=== PATIENT | female | born 1945 | race Caucasian/White ===

== ENCOUNTER → 2020-01-04 14:17 | Outpatient (BNVA) | payer MEDICARE, SELFPAY | PROVIDERS: Family Provider Family Medicine; PCP Family Medicine; Referring Provider Dermatology; Visit Provider Internal Medicine Rheumatology | DX: L93.1 Subacute cutaneous lupus erythematosus (principal); Z79.899 Other long term (current) drug therapy | CPT/HCPCS: 36415; 80076; 81001; 82306; 82565; 82570; 84156; 85025; 85651; 86140; 86160; 99204 ==

== ENCOUNTER → 2020-01-04 15:10 | Outpatient (BNVA) | payer MEDICARE, SELFPAY | PROVIDERS: Family Provider Family Medicine; PCP Family Medicine; Referring Provider Dermatology; Visit Provider Internal Medicine Rheumatology | DX: L93.1 Subacute cutaneous lupus erythematosus (principal); Z79.899 Other long term (current) drug therapy | CPT/HCPCS: 81001; 85025 ==

== ENCOUNTER → 2020-01-16 09:22 | Outpatient (BNVA) | payer MEDICARE, SELFPAY | PROVIDERS: Family Provider Family Medicine; PCP Family Medicine; Visit Provider Internal Medicine Rheumatology | DX: L93.1 Subacute cutaneous lupus erythematosus (principal); R76.8 Other specified abnormal immunological findings in serum; Z79.899 Other long term (current) drug therapy; R79.89 Other specified abnormal findings of blood chemistry | CPT/HCPCS: 99214 ==

== ENCOUNTER → 2020-01-24 09:03 | Outpatient (BNVA) | payer MEDICARE, SELFPAY | PROVIDERS: Family Provider Family Medicine; PCP Family Medicine; Visit Provider Nurse Practitioner Family | DX: I10 Essential (primary) hypertension (principal); R42 Dizziness and giddiness; I48.91 Unspecified atrial fibrillation; E78.5 Hyperlipidemia, unspecified | CPT/HCPCS: 80053; 80061; 81001; 83036; 84443; 85025 ==

== ENCOUNTER 2020-01-31 10:53 | Outpatient (CLI) | payer MEDICARE, SELFPAY ==
--- NOTE | 2020-01-31 11:00 | CT_ITS ---
WS: [id number] CT HEAD TECHNIQUE: Noncontrast CT of the head obtained from the skullbase to the vertex. CLINICAL INFORMATION: dizziness COMPARISON: None. DLP: 925.[address] scans at [facility] use at least one of these dose optimization techniques: automat ed exposure control; mA and/or kV adjustment per patient size (includes targeted exams where dose is matched to clinical indication); or iterative reconstruction. FINDINGS: No evidence of intracranial hemorrhage or mass effect. Ventricular system and basal cisterns are yang nt. Mild small vessel changes with mild parenchymal volume loss. Chronic appearing encephalomalacia l eft parieto-occipital junction likely due to chronic infarct. Tiny chronic lacunar infarct left thala mus. Mastoid air cells are well aerated. Intracranial vascular calcification. Partially visualized Paranasal sinuses and mastoid air cells are well aerated. .Normal visualized sof t tissues. CT/CT head wo con* [id number] IMPRESSION: 1. No evidence of intracranial hemorrhage or mass effect. 2. Mild small vessel changes with mild parenchymal volume loss. 3. Tiny chronic lacunar infarct left thalamus. 4. Encephalomalacia at the left parietal occipital junction likely due to nurse chad infarct. 5. No acute intracranial findings.
== END 2020-01-31 10:54 | disposition home or self-care (01) ==
LOC: RADWPI 10:58
PROVIDERS: Family Provider Family Medicine; PCP Family Medicine; Visit Provider Nurse Practitioner Family
DX: G93.89 Other specified disorders of brain (principal); I63.81 Other cerebral infarction due to occlusion or stenosis of small artery; R42 Dizziness and giddiness
CPT/HCPCS: 70450

== ENCOUNTER → 2020-02-02 16:57 | Outpatient (BNVA) | payer MEDICARE, SELFPAY | PROVIDERS: Family Provider Family Medicine; PCP Family Medicine; Visit Provider Nurse Practitioner Family | DX: R53.1 Weakness (principal); R42 Dizziness and giddiness; I10 Essential (primary) hypertension | CPT/HCPCS: 80048; 85025 ==

== ENCOUNTER → 2020-07-31 14:38 | Outpatient (BNVA) | payer MEDICARE, SELFPAY | PROVIDERS: Family Provider Family Medicine; PCP Nurse Practitioner Family; Visit Provider Internal Medicine Rheumatology | DX: L93.1 Subacute cutaneous lupus erythematosus (principal); Z79.899 Other long term (current) drug therapy; R76.8 Other specified abnormal immunological findings in serum; R79.89 Other specified abnormal findings of blood chemistry | CPT/HCPCS: 99213 ==

== ENCOUNTER → 2020-08-16 15:30 | Outpatient (BNVA) | payer MEDICARE, SELFPAY | PROVIDERS: Family Provider Family Medicine; PCP Nurse Practitioner Family; Visit Provider Internal Medicine Rheumatology | DX: L93.1 Subacute cutaneous lupus erythematosus (principal); Z79.899 Other long term (current) drug therapy; R76.8 Other specified abnormal immunological findings in serum | CPT/HCPCS: 80048; 80076; 81003; 82565; 82570; 84156; 85025; 85651; 86140; 86160 ==

== ENCOUNTER 2020-11-08 15:12 | Inpatient (IN) | payer MEDICARE, SELFPAY ==
[2020-11-08] VITALS (19 sets, daily range): BP systolic 144–212; BP diastolic 80–136; PULSE 81–134; RESP 18–28; TEMP 36.5–36.7; O2SAT 93–98; BMI 28.1
--- NOTE | 2020-11-08 15:46 | ECG_ITS ---
[facility] Test Date: 2020-11-08 Pat Name: Deepali Mulligan Department: Room: Gender: Female Patient Transport Orderly: omid : 1945 Requested By: Marito Walsh I Order Number: [id number] Cesar MD: Hawk Villagomez M.D. Measurements Intervals [place] Rate: 117 P: WA: QRS: 17 QRSD: 98 T: 134 QT: 262 QTc: 366 Interpretive Statements ATRIAL FIBRILLATION WITH RAPID VENTRICULAR RESPONSE SEPTAL MYOCARDIAL INFARCTION [40+ ms Q WAVE IN V1/V2], OF INDETERMINATE AGE ST DEVIATION AND MODERATE T-WAVE ABNORMALITY, CONSIDER LATERAL ISCHEMIA [-0.1+ mV T WAVE IN I/aVL/V5/V6] INTERPRETATION BASED ON A DEFAULT AGE OF 40 YEARS Compared to ECG 05/05/2019 00:20:57 Sinus rhythm no longer present Myocardial infarct finding still present T-wave abnormality still present Possible ischemia still present Electronically Signed On 11-08-2020 22:43:30 CONCIERGE by Hawk Villagomez M.D. [id number]
--- NOTE | 2020-11-08 15:48 | XR_ITS ---
WS: [id number] XR chest 1V portable [id number] REASON FOR EXAM: chest pain FINDINGS: Status post left mastectomy with axillary dissection. Cardiomegaly. Mild tortuosity of thoracic aorta. Compared to examination of 05/04/2019 the upper mediastinum/upper right hilar region appears widened a t the level of the daron. There is no tracheal deviation. There is a fine reticular pattern throughout both lungs which appears unchanged compared to 05/04/2019 . The bony thorax is intact. XR/XR chest 1V portable [id number] IMPRESSION: Concern for widened right mediastinum/upper right upper hilum. Recommend follow -up upright PA and lateral chest. If the presumed finding is reproduced then th e definitive examination is contrasted CT scan of the chest.
[2020-11-08 16:03] LABS: Basophils % 0.4 %; Eosinophils % 0.5 %; Hematocrit 40.4 % (37.0-47.0); Hemoglobin 12.8 g/dL (11.5-15.3); Lymphocytes # 1.2 10^3/uL (0.8-4.8); Lymphocytes % 15.2 %; Mean Corpuscular HGB Conc 31.7 g/dL (30.0-36.0); Mean Corpuscular Hemoglobin 28.9 pg (28.0-34.0); Mean Corpuscular Volume 91.2 fL (81-99); Mean Platelet Volume 12.2 fL (7.4-10.4); Monocytes # 0.8 10^3/uL (0.2-0.9); Monocytes % 9.9 %; Neutrophils % 73.9 %; Nucleated Red Blood Cells % 0 %; Platelet Count 207 10^3/cmm (130-400); Red Blood Count 4.43 10^6/uL (4.1-5.3); Red Cell Distribution Width 13.2 % (12.1-15.1); White Blood Count 7.7 10^3/uL (4.0-10.0)
[2020-11-08 16:23] LABS: Alanine Aminotransferase 16 U/L (0-33); Alkaline Phosphatase 102 IU/L (35-105); Anion Gap 15.6 (5-19); Aspartate Amino Transferase 17 U/L (0-32); Blood Urea Nitrogen 14 mg/dL (8-23); Calcium 9.3 mg/dL (8.5-10.5); Carbon Dioxide 23 mmol/L (22-29); Chloride 101 mmol/L (98-107); Globulin 3.3 g/dL (1.3-4.6); Glucose 125 mg/dL (65-115); Lipase 19 U/L (13-60); NT Pro B Type Natriuretic Pept 2924 pg/mL (0-450); Osmolality Calculated 284 mOsm/kg (285-295); Potassium 3.6 mmol/L (3.5-5.1); Sodium 136 mmol/L (136-145); Thyroid Stimulating Hormone 2.78 uIU/mL (0.27-4.20); Total Bilirubin 0.7 mg/dL (0.15-1.2); Total Protein 7.3 g/dL (6.6-8.7)
[2020-11-08 16:24] LABS: Troponin(5th) Baseline 14 ng/L (0-10)
--- NOTE | 2020-11-08 16:53 | W.ED.CHESTPA ---
HPI - Chest Pain General: Chief Complaint: Chest Pain Stated Complaint: SOB/CP Time Seen by Provider: 11/08/20 15:21 Source: patient Mode of arrival: ambulatory Limitations: no limitations History of Present Illness: HPI narrative: Patient is a 75-year-old female with a history of atrial fibrillation and she is on verapamil and Xarelto anticoagulation. This morning around 8 AM she noticed intermittent chest pain, however on further questioning she was having palpitations. Because her symptoms persisted she came into the emergency department for evaluation. On arrival her heart rate was significantly elevated and ranged between 120s and 150. She denies any fever, has some shortness of breath, has some dizziness, but no syncopal episodes. MD complaint: chest pain and other (palpitations) Onset (ago): hour(s) Timing of current episode: episodic Prior episodes: Yes Onset: during rest Pain location: left chest Pain radiation: none Severity: mild Quality: aching Relieving factors: nothing Exacerbating factors: nothing Associated symptoms: Deny abdominal pain, diaphoresis, dyspnea, fever(s), leg edema, nausea, palpitations, sense of impending doom, syncope or vomiting Treatment prior to arrival: none Review of Systems General: Reports: 10 or more systems reviewed and unremarkable except in HPI and below Const: Denies: fever(s) or diaphoresis Eyes: Denies: change in vision or blurry vision ENMT: Denies: throat pain, enlarged tonsils, odynophagia, hoarseness, mouth pain or swelling of lips/tongue Card: Denies: palpitations or syncope Resp: Denies: dyspnea GI: Denies: abdominal pain, nausea or vomiting : Denies: flank pain, difficulty voiding, dysuria, urinary frequency, urinary urgency or urinary hesitancy Musc: Denies: neck pain, back pain or extremity swelling Skin/Breast: Denies: rash, pruritus or erythema Neuro: Denies: headache(s), numbness in extremities or weakness in extremities Endo: Denies: polyuria, polydipsia or tired all the time PFS ED PFSH: Medical History (Updated 11/08/20 @ 21:47 by Marito Walsh MD, [facility] [place]) Acid reflux Breast cancer Elevated serum creatinine Elevated serum creatinine High risk medication use Hypertension Other shelter (current) 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 Surgical History H/O: hysterectomy History of inguinal hernia repair History of left mastectomy Family History Other Hyperlipidemia Psychiatric illness Denies family history of Rheumatoid arthritis Lupus Social History Smoking and tobacco status: never smoked Second hand smoke exposure: No Alcohol intake: never Lives independently: Yes Household members: none Current occupational status: employed Current occupation: [employer] History of recent travel: No Current gender identity: Female Physical Exam Const: COMMON NORMALS: no acute distress, average body habitus, patient oriented x3, no limitations, healthy appearing, alert and well nourished HENMT: COMMON NORMALS: normocephalic, atraumatic and moist oral mucous membranes HEAD & SCALP: normocephalic and atraumatic Neck/C-Spine: COMMON NORMALS: no meningeal signs and no JVD Resp: COMMON NORMALS: normal respiratory effort, No retractions, No use of accessory muscles, clear to auscultation bilaterally and percussion normal AUSCULTATION: clear to auscultation bilaterally PERCUSSION: percussion normal Cardio: COMMON NORMALS: no JVD, S1 normal heart sound present, S2 normal heart sound present, No gallops present (Cardio), No clicks present (Cardio), No murmurs present (Cardio), No rub (Cardio) and Peripheral pulses 2+ throughout RATE: tachycardic RHYTHM: abnormal rhythm irregularly irregular HEART SOUNDS: S1 normal heart sound present and S2 normal heart sound present PERIPHERAL PULSES: Peripheral pulses 2+ throughout GI: COMMON NORMALS: Normal to inspection, nondistended, normoactive bowel sounds present, Soft to palpation, non-tender, No hepatosplenomegaly present, no masses and no bruits PALPATION: Yes Soft to palpation and Yes No hepatosplenomegaly present Extremity: COMMON NORMALS: normal to inspection, full ROM, capillary refill normal, no calf tenderness and no pedal edema Neuro: COMMON NORMALS: patient oriented x3 SENSORIUM/ORIENTATION: Yes alert MENINGEAL SIGNS: Yes no meningeal signs Skin: COMMON NORMALS: no rashes or lesions noted, no wounds, turgor normal, no jaundice, no petechiae and no mottling GENERAL SKIN EXAM: no rashes or lesions noted and turgor normal Course Reevaluation(s): Reevaluation #1: Discussed my conversation with Dr. Cortez with her. Also discussed her lab and imaging findings with her prior. Advised that she would benefit from hospital admission and she agreed to be admitted for further evaluation and management. Time: 19:55 Consultations: Consultation #1: Discussed the patient with , hospitalist. He kindly accepted the patient to his service. Time: 19:53 Vital Signs: Vital signs: Vital Signs Temperature 98.1 F 11/08/20 15:14 Pulse Rate 109 H 11/08/20 21:17 Respiratory Rate 20 H 11/08/20 21:17 Blood Pressure 163/102 11/08/20 21:17 Pulse Oximetry 98 11/08/20 21:17 MDM - Chest Pain MDM Narrative: Medical decision making narrative: 75-year-old female patient who presents to the emergency department with chest pain or shortness of breath. On evaluation she was found to be in A. fib with RVR, she was also severely hypertensive. Her atrial fibrillation responded to a single dose of intravenous diltiazem, 20 mg. However it was difficult to get her blood pressure under control. She also had features consistent with heart failure which is a new diagnosis for her. Because of her severely elevated blood pressure, pulmonary edema on CT, and new onset heart failure she was started on a nitroglycerin drip and admitted for further evaluation and management. Medical Records: Attestation: I reviewed the patient's medical records. Lab Data: Attestation: I reviewed the patient's lab results. Labs: Lab Results 11/08/20 11/08/20 11/08/20 Range/Units 15:24 15:24 15:24 WBC 7.7 (4.0-10.0) 10^3/ uL RBC 4.43 (4.1-5.3) 10^6/u L Hgb 12.8 (11.5-15.3) g/dL Hct 40.4 (37.0-47.0) % MCV 91.2 (81-99) fL MCH 28.9 (28.0-34.0) pg MCHC 31.7 (30.0-36.0) g/dL RDW 13.2 (12.1-15.1) % Plt Count 207 (130-400) 10^3/c mm MPV 12.2 H (7.4-10.4) fL Neut % (Auto) 73.9 % Lymph % (Auto) 15.2 % [place] % (Auto) 9.9 % Eos % (Auto) 0.5 % Baso % (Auto) 0.4 % Neut # (Auto) 5.70 (1.8-7.7) 10^3/u L Lymph # (Auto) 1.2 (0.8-4.8) 10^3/u L [place] # (Auto) 0.8 (0.2-0.9) 10^3/u L Eos # (Auto) 0.0 (0.0-0.8) 10^3/u L Baso # (Auto) 0.0 (0.0-0.1) 10^3/u L Nucleated RBC % (a uto) 0 % Nucleated RBCs # 0.0 /100WBC Sodium 136 (136-145) mmol/L Potassium 3.6 (3.5-5.1) mmol/L Chloride 101 (98-107) mmol/L Carbon Dioxide 23 (22-29) mmol/L Anion Gap 15.6 (5-19) BUN 14 (8-23) mg/dL Creatinine 0.9 (0.5-0.9) mg/dL GFR Calculation Not Reportable Glucose 125 H (65-115) mg/dL Calculated Osmolal ity 284 L (285-295) mOsm/k g Calcium 9.3 (8.5-10.5) mg/dL Total Bilirubin 0.7 (0.15-1.2) mg/dL AST 17 (0-32) U/L ALT 16 (0-33) U/L Alkaline Phosphata se 102 (35-105) IU/L Troponin T Baselin e 14 H (0-10) ng/L Troponin T 120 Min [place] (0-10) ng/L Delta Troponin T (0-10) ABS# NT-Pro-B Natriuret Pep 2924 H (0-450) pg/mL Total Protein 7.3 (6.6-8.7) g/dL Albumin 4.0 (3.5-5.2) g/dL Globulin 3.3 (1.3-4.6) g/dL Lipase 19 (13-60) U/L TSH 2.78 (0.27-4.20) uIU/ mL 11/08/20 Range/Units 17:43 WBC (4.0-10.0) 10^3/ uL RBC (4.1-5.3) 10^6/u L Hgb (11.5-15.3) g/dL Hct (37.0-47.0) % MCV (81-99) fL MCH (28.0-34.0) pg MCHC (30.0-36.0) g/dL RDW (12.1-15.1) % Plt Count (130-400) 10^3/c mm MPV (7.4-10.4) fL Neut % (Auto) % Lymph % (Auto) % [place] % (Auto) % Eos % (Auto) % Baso % (Auto) % Neut # (Auto) (1.8-7.7) 10^3/u L Lymph # (Auto) (0.8-4.8) 10^3/u L [place] # (Auto) (0.2-0.9) 10^3/u L Eos # (Auto) (0.0-0.8) 10^3/u L Baso # (Auto) (0.0-0.1) 10^3/u L Nucleated RBC % (a uto) % Nucleated RBCs # /100WBC Sodium (136-145) mmol/L Potassium (3.5-5.1) mmol/L Chloride (98-107) mmol/L Carbon Dioxide (22-29) mmol/L Anion Gap (5-19) BUN (8-23) mg/dL Creatinine (0.5-0.9) mg/dL GFR Calculation Glucose (65-115) mg/dL Calculated Osmolal ity (285-295) mOsm/k g Calcium (8.5-10.5) mg/dL Total Bilirubin (0.15-1.2) mg/dL AST (0-32) U/L ALT (0-33) U/L Alkaline Phosphata se (35-105) IU/L Troponin T Baselin e (0-10) ng/L Troponin T 120 Min [place] 11.47 H (0-10) ng/L Delta Troponin T -2.53 L (0-10) ABS# NT-Pro-B Natriuret Pep (0-450) pg/mL Total Protein (6.6-8.7) g/dL Albumin (3.5-5.2) g/dL Globulin (1.3-4.6) g/dL Lipase (13-60) U/L TSH (0.27-4.20) uIU/ mL Imaging Data^: CXR: Attestation: I personally reviewed and interpreted this imaging study as follows: Radiologist's impression: [employer] [address] [place] [address]. [place] [address] XRay Report Signed Patient: Deepali Mulligan #: [id number] : 3Acct#:[id number] Age/Sex: 75 / FADM Date: 11/08/20 [facility] Attending Dr: Ordering Provider/Ordering MD: Marito Walsh MD, [facility] [place] Date of Service: 11/08/20 Procedure(s): XR chest 1V portable [id number] Accession Number(s): [id number] Report Number: [id number] WS: [id number] XR chest 1V portable [id number] REASON FOR EXAM: chest pain FINDINGS: Status post left mastectomy with axillary dissection. Cardiomegaly. Mild tortuosity of thoracic aorta. Compared to examination of 05/04/2019 the upper mediastinum/upper right hilar region appears widened at the level of the daron. There is no tracheal deviation. There is a fine reticular pattern throughout both lungs which appears unchanged compared to 05/04/2019. The bony thorax is intact. XR/XR chest 1V portable [id number] IMPRESSION: Concern for widened right mediastinum/upper right upper hilum. Recommend follow-up upright PA and lateral chest. If the presumed finding is reproduced then the definitive examination is contrasted CT scan of the chest. Dictated By:Raghu Butterfield Jr, MD Signed By:Raghu Butterfield Jr [facility] Date/Time:11/08/201658 DD/ 46 CTA Chest: Radiologist's impression: [facility] [address] [address] [address] Scan Report Signed Patient: Deepali Mulligan #: [id number] : [facility][id number] Age/Sex: 75 / FADM Date: 11/08/20 [facility] Attending Dr: Ordering Provider/Ordering MD: Marito Walsh MD, DAVID Date of Service: 11/08/20 Procedure(s): CT angio chest PE protcl [id number] Accession Number(s): [id number] Report Number: [id number] PROCEDURE INFORMATION: Exam: CT Angiography Chest With Contrast Exam date and time: 11/08/2020 6:00 PM Age: 75 years old Clinical indication: Chest pain; Type not specified; Additional info: Chest pain, widened mediastinum TECHNIQUE: Imaging protocol: Computed tomographic angiography of the chest with intravenous contrast. 3D rendering (Not supervised by radiologist): MIP and/or 3D reconstructed images were created by the technologist. Radiation optimization: All CT scans at this facility use at least one of these dose optimization techniques: automated exposure control; mA and/or kV adjustment per patient size (includes targeted exams where dose is matched to clinical indication); or iterative reconstruction. Contrast material: OMNI 350; Contrast volume: 75 ml; Contrast route: INTRAVENOUS (IV); COMPARISON: [place] XR chest 1V portable [id number] 11/08/2020 4:28 PM RADIATION DOSE METRICS: Total DLP (mGy-cm): 583.54 FINDINGS: Pulmonary arteries: No visible evidence of pulmonary embolism/pulmonary arterial thrombus. Aorta: The thoracic aorta is nonaneurysmal. Arteriosclerosis. Lungs: Findings suggest the presence of mild interstitial edema. This finding most likely reflects passive pulmonary congestion/congestive heart failure. No visible consolidated alveolar airspace disease. Bilateral noncalcified pulmonary nodules the largest measuring 6 mm right lower lobe (series 3, image 36). Second dominant nodule right middle lobe measures 4.4 mm (series 3, image 37). Tiny 3 mm pulmonary nodule right upper lobe (series 3, image 25) very tiny 2 mm nodule right lower lobe (series 3, image 37). Pleural space: Unremarkable. No pneumothorax. No pleural effusion. Heart: Cardiomegaly. No visible pericardial effusion. Mild coronary artery disease. Lymph nodes: No findings raising concern for active mediastinal or hilar lymphadenopathy. Calcified complexes of antecedent granulomatous disease. Kidneys and ureters: Left renal parapelvic cysts. No follow-up recommended. Bones/joints: No visible active or acute osseous pathology. Soft tissues: Status post left mastectomy. CT/CT angio chest PE protcl [id number] IMPRESSION: 1. No visible evidence of pulmonary embolism/pulmonary arterial thrombus. 2. Cardiomegaly. Mild coronary artery disease. 3. Findings of mild interstitial edema. 4. Bilateral noncalcified pulmonary nodules as detailed in text above. For patients at low risk (minimal or absent history of smoking and of other known risk factors), no routine follow-up is indicated. For patients at high risk (history of smoking or of other known risk factors), consider optional CT Chest at 12 months. (Reference: Torres). 5. Evidence of antecedent granulomatous disease. COMMENTS: Consistent with the [place] [employer]'s Incidental Findings Committee white paper (J Am Royal Radiol 2018): Any incidental renal lesion less than 1 cm or classified as too small to characterize, or any incidental cystic renal lesion characterized as simple-appearing, is likely benign. No follow-up imaging is recommended for these lesions per consensus recommendations based on imaging criteria. REFERENCES: Torres Munoz, et al. Guidelines for Management of Incidental Pulmonary Nodules Detected on CT Images: From the Fleischner Society 2017. Radiology. 2017;284(1):228-243. Radiation Dose CTDIVOL = (mGy): DLP = 583.54 (mGy-cm) Dictated By:Sonny Richard Signed By:Lora Richard Date/Time:11/08/201910 DD/ 08 EKG Data^: EKG 1: Attestation: I personally reviewed and interpreted this EKG as follows: EKG interpretation date: 11/08/20 EKG interpretation time: 15:22 Prior EKG tracings: not available for review Interpretation: Atrial fibrillation with rapid ventricular response. ST depression in lead V4. Downsloping of the ST segment in leads I, V5 and V6. EKG 2: Attestation: I personally reviewed and interpreted this EKG as follows: EKG interpretation date: 11/08/20 EKG interpretation time: 15:33 Prior EKG tracings: available for review Interpretation: This is post 20 mg of intravenous diltiazem. Atrial fibrillation with RVR. Heart rate 104 bpm. Downsloping of leads I, V5 and V6. ST depression in leads V4 unchanged from earlier EKG 3: Attestation: I personally reviewed and interpreted this EKG as follows: EKG interpretation date: 11/08/20 EKG interpretation time: 17:46 Prior EKG tracings: available for review Interpretation: Atrial fibrillation. Heart rate 92 bpm. EKG unchanged from earlier other than her heart rate is no longer tachycardic. Critical Care Time Critical Care Time: Critical Care Time: Yes Total Critical Care Time: 60 Attestation: This case had a high probability of a clinically significant, sudden, or life threatening deterioration of this patient's condition which required my full and direct attention, intervention and personal management. Discharge Plan Discharge Patient Disposition: Admitted As Inpatient Admit Provider: Michael Cortez Clinical Impression: New onset of congestive heart failure, Atrial fibrillation, Hypertensive emergency Condition: Stable Coding Level of Care Code ED Power Operator for Chg Fwd Exam Comprehensive
[2020-11-08] MEDS: labetalol 5 mg/mL SDV 20mL 10 MG IVP ×2 (17:24→18:20)
--- NOTE | 2020-11-08 17:43 | CTR_ITS ---
PROCEDURE INFORMATION: Exam: CT Angiography Chest With Contrast Exam date and time: 11/08/2020 6:00 PM Age: 75 years old Clinical indication: Chest pain; Type not specified; Additional info: Chest pain, widened mediastinum TECHNIQUE: Imaging protocol: Computed tomographic angiography of the chest with intravenous contrast. 3D rendering (Not supervised by radiologist): MIP and/or 3D reconstructed images were created by the technologist. Radiation optimization: All CT scans at this facility use at least one of these dose optimization techniques: automated exposure control; mA and/or kV adjustment per patient size (includes targeted exams where dose is matched to clinical indication); or iterative reconstruction. Contrast material: OMNI 350; Contrast volume: 75 ml; Contrast route: INTRAVENOUS (IV); COMPARISON: [place] XR chest 1V portable [id number] 11/08/2020 4:28 PM RADIATION DOSE METRICS: Total DLP (mGy-cm): 583.54 FINDINGS: Pulmonary arteries: No visible evidence of pulmonary embolism/pulmonary arterial thrombus. Aorta: The thoracic aorta is nonaneurysmal. Arteriosclerosis. Lungs: Findings suggest the presence of mild interstitial edema. This finding most likely reflects passive pulmonary congestion/congestive heart failure. No visible consolidated alveolar airspace disease. Bilateral noncalcified pulmonary nodules the largest measuring 6 mm right lower lobe (series 3, image 36). Second dominant nodule right middle lobe measures 4.4 mm (series 3, image 37). Tiny 3 mm pulmonary nodule right upper lobe (series 3, image 25) very tiny 2 mm nodule right lower lobe (series 3, image 37). Pleural space: Unremarkable. No pneumothorax. No pleural effusion. Heart: Cardiomegaly. No visible pericardial effusion. Mild coronary artery disease. Lymph nodes: No findings raising concern for active mediastinal or hilar lymphadenopathy. Calcified complexes of antecedent granulomatous disease. Kidneys and ureters: Left renal parapelvic cysts. No follow-up recommended. Bones/joints: No visible active or acute osseous pathology. Soft tissues: Status post left mastectomy. CT/CT angio chest PE protcl [id number] IMPRESSION: 1. No visible evidence of pulmonary embolism/pulmonary arterial thrombus. 2. Cardiomegaly. Mild coronary artery disease. 3. Findings of mild interstitial edema. 4. Bilateral noncalcified pulmonary nodules as detailed in text above. For patients at low risk (minimal or absent history of smoking and of other known risk factors), no routine follow-up is indicated. For patients at high risk (history of smoking or of other known risk factors), consider optional CT Chest at 12 months. (Reference: Torres). 5. Evidence of antecedent granulomatous disease. COMMENTS: Consistent with the [place] [employer]'s Incidental Findings Committee white paper (J Am Royal Radiol 2018): Any incidental renal lesion less than 1 cm or classified as too small to characterize, or any incidental cystic renal lesion characterized as simple-appearing, is likely benign. No follow-up imaging is recommended for these lesions per consensus recommendations based on imaging criteria. REFERENCES: Torres Munoz, et al. Guidelines for Management of Incidental Pulmonary Nodules Detected on CT Images: From the Fleischner Society 2017. Radiology. 2017;284(1):228-243. Radiation Dose CTDIVOL = (mGy): DLP = 583.54 (mGy-cm)
--- NOTE | 2020-11-08 17:46 | ECG_ITS ---
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 Measurements Intervals [place] Rate: 92 P: OR: QRS: -22 QRSD: 102 T: 102 QT: 385 QTc: 476 Interpretive Statements ATRIAL FIBRILLATION MODERATE VOLTAGE CRITERIA FOR LVH, CONSIDER NORMAL VARIANT [MEETS CRITERIA IN ONE OF: R(aVL), S(V1), R(V5), R(V5/V6)+S(V1)] POSSIBLE SEPTAL MYOCARDIAL INFARCTION [30 ms Q WAVE IN V1/V2], PROBABLY OLD MODERATE T-WAVE ABNORMALITY, CONSIDER LATERAL ISCHEMIA [-0.1+ mV T WAVE IN I/aVL/V5/V6] Compared to ECG 11/08/2020 15:22:48 No significant changes Electronically Signed On 11-08-2020 22:56:09 EDGE DRUMMER by Hawk Villagomez M.D. [id number]
[2020-11-08] MEDS: hydrocortisone 100 mg/2 mL SDV IVP (18:20)
[2020-11-08] MEDS: diphenhydrAMINE 50 mg/mL SDV 1mL IVP (18:20)
[2020-11-08 18:23] LABS: Troponin 5 2HR 11.47 ng/L (0-10); Troponin 5 2HR Delta -2.53 ABS# (0-10)
[2020-11-08] MEDS: iohexol 350 mg/mL 100 mL Btl IV (18:52)
[2020-11-08] MEDS: nitroglycerin drip 50 MG/250 ML PREMIX IV (19:37)
--- NOTE | 2020-11-08 19:51 | PM.HP ---
Providers/Chief Complaint Primary Care Provider: DI Schaefer Chief Complaint: SOB/CP History of Present Illness Deepali Mulligan is a 75 year old female who was recently diagnosed with atrial fibrillation was started on Xarelto and verapamil, has history of breast cancer status post surgery and chemoradiation, presented today with chief complaint of palpitation and presyncope. Previously patient also had hypertensive urgency secondary to withholding her medications on her own due to her intolerance to those medications and some side effects of previous chemotherapeutic agents. Patient is stating that she gets palpitations on and off without any inciting factors, today around 7 AM she started experiencing palpitations and they were not getting resolved, it made her very uncomfortable she started experiencing shortness of breath due to it. Did not experience any nausea, vomiting, fever, chest pain any syncopal event. She has had regular bowel movements, she has grade 2 diastolic dysfunction, preserved ejection fraction heart failure Dr. Solis did not start her any Lasix as she is euvolemic. Patient is denying orthopnea, PND. Diagnostics in the ER revealed hypertensive urgency for which she was started on nitro drip, A. fib RVR at the time of my evaluation her heart rate was fluctuated between 95-1 01, she is euvolemic, blood pressure 155/98mmhg No active chest pain or shortness of breath, saturating well on room air Review of Systems Const: Denies: fever(s) or body aches Eyes: Denies: change in vision ENMT: Denies: throat pain Card: Reports: palpitations and pre-syncope; Denies: orthopnea Resp: Reports: dyspnea GI: Denies: abdominal pain : Denies: flank pain Musc: Denies: neck pain Skin/Breast: Denies: rash Neuro: Denies: headache(s) Psych: Denies: anxiety Endo: Denies: polyuria Heri/Lymph: Denies: easy bruising All/Imm: Denies: urticaria Medications/Allergies Home Medications Medication Instructions Recorded Confirmed Last Taken Type famotidine 10 mg tablet 10 mg PO DAILY@0830 01/04/20 11/08/20 11/08/20 History Xarelto 20 mg PO DAILY@0830 11/08/20 11/08/20 11/08/20 History valsartan 40 mg PO DAILY@0830 11/08/20 11/08/20 11/08/20 History verapamil 120 mg PO DAILY@0830 11/08/20 11/08/20 11/08/20 History verapamil 180 mg PO DAILY@0830 11/08/20 11/08/20 11/08/20 History Allergies Allergy/AdvReac Type Severity Reaction Status Date / Time Iodinated Contrast Media Allergy ALGY-Rash Verified 11/08/20 20:43 azithromycin AdvReac Unknown Verified 07/31/20 15:18 naproxen AdvReac Unknown Verified 07/31/20 15:18 PFSH Acute PFSH: Medical History (Updated 11/08/20 @ 20:58 by Michael Cortez MD) Acid reflux Breast cancer Elevated serum creatinine Elevated serum creatinine High risk medication use 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 Surgical History H/O: hysterectomy History of inguinal hernia repair History of left mastectomy Family History Other Hyperlipidemia Psychiatric illness Denies family history of Rheumatoid arthritis Lupus Social History Smoking and tobacco status: never smoked Second hand smoke exposure: No Alcohol intake: never Lives independently: Yes Household members: none Current occupational status: employed Current occupation: [employer] History of recent travel: No Current gender identity: Female Vitals/I&O/Wt Last Vital Signs Temp 98.1 F 11/08/20 15:14 Pulse 99 11/08/20 19:41 Resp 18 11/08/20 19:41 BP 201/111 11/08/20 19:41 Pulse Ox 93 11/08/20 19:41 Weight last 48 hrs Weight 81.647 kg Physical Exam Narrative: EXAM NARRATIVE: Elderly female lying comfortably in her bed no orthopnea PND Appears stated age Euvolemic Cooperative and very pleasant She seemed anxious as she kept looking right to left in the room however awake alert oriented x3 GCS 15 No neurological deficit Euvolemic no signs of heart failure Variable S1-S2 No active shortness of breath, bilateral breath sounds without adventitial rhonchi or crackles Abdomen soft nontender bowel sounds present Lower extremity no edema gangrene or ulcer Anxious mood and affect Data : 11/08/20 15:24 11/08/20 15:24 A&P Assessment and plan (1) Atrial fibrillation: Status: Acute Qualifiers: Atrial fibrillation type: paroxysmal Qualified Code(s): I48.0 - Paroxysmal atrial fibrillation (2) Hypertensive urgency: Status: Acute Additional A&P Information Atrial fibrillation with acute RVR Palpitations, symptomatic patient felt short of breath which has resolved Clinically looks euvolemic however BNP is high diastolic dysfunction, I would not start her on an Lasix for now Currently heart rate fluctuating between 95-105 she gets losartan 300 mg which was recently increased I would add metoprolol which would help with her blood pressure and rate control TSH 2.7, will check magnesium level, potassium 3.6, target mag greater than 2 potassium greater than 4, will replete EKG without ischemic or ectopic changes, troponin with negative delta Continue Xarelto Hypertensive urgency Patient is taking valsartan Considering her grade 3 hypertension I would add 2 more antihypertensive agents, for now I would add metoprolol and amlodipine No strokelike symptoms, Mean arterial pressure reduction 25% in next few hours currently systolic blood pressure 150 mmHg on nitro drip, titrate off her nitro drip Full code Cardiac diet DVT prophylaxis not indicated due to current use of Xarelto Attestations Medical Necessity Statement*: Anticipating discharge in less than 48 hours need better rate &pressure control currently on nitro drip will monitor overnight Time Spent in Patient Care: (>than 50% of time spent in counselling and/or direct pt care on unit). 40mins Coding Level of Care Code Acute Pricing Director for Chg Fwd Diagnoses Atrial fibrillation I48.0 Atrial fibrillation type: paroxysmal Hypertensive urgency I16.0
--- NOTE | 2020-11-08 20:35 | PC.NURSE ---
nurse unavailable to take report at this time
--- NOTE | 2020-11-08 20:43 | PC.NURSE ---
report called to [facility]. room not ready yet
[2020-11-08] MEDS: metoprolol tartrate 25 mg Tablet PO (21:24)
--- NOTE | 2020-11-08 21:29 | PC.NURSE ---
Patient received from ED via stretcher. Patient able to ambulate to bed with only standby assist. Patient reports having a mastectomy to left side in 1990. Nitroglycerin drip running at 1.5ml/hr on arrival. BP at 163/102. Increased Nitro quality control lead to 3ml/hr. Current BP with change at 170/96. Patient denies pain at this time. Admission completed as documented. No other distress observed.
--- NOTE | 2020-11-08 21:46 | ECG_ITS ---
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 Measurements Intervals [place] Rate: 104 P: MD: QRS: 11 QRSD: 100 T: 150 QT: 323 QTc: 425 Interpretive Statements ATRIAL FIBRILLATION WITH RAPID VENTRICULAR RESPONSE WITH ABERRANT CONDUCTION OR VENTRICULAR PREMATURE COMPLEXES SEPTAL MYOCARDIAL INFARCTION [40+ ms Q WAVE IN V1/V2], OF INDETERMINATE AGE ST DEVIATION AND MODERATE T-WAVE ABNORMALITY, CONSIDER LATERAL ISCHEMIA [-0.1+ mV T WAVE IN I/aVL/V5/V6] Compared to ECG 11/08/2020 15:22:48 Aberrant conduction of supraventricular beat(s) now present Ventricular premature complex(es) now present Myocardial infarct finding still present T-wave abnormality still present Possible ischemia still present Electronically Signed On 11-08-2020 22:55:51 CABLE LAYER by Hawk Villagomez M.D. [id number]
[2020-11-08 22:19] LABS: Magnesium 2.2 mg/dL (1.7-2.3)
--- NOTE | 2020-11-08 23:17 | PC.NURSE ---
BP at 150/80. Increased nitro drip to 4.5ml/hr.
[2020-11-09] VITALS (20 sets, daily range): BP systolic 125–157; BP diastolic 59–112; PULSE 67–98; RESP 16–26; TEMP 36.4–36.7; O2SAT 93–98
--- NOTE | 2020-11-09 02:39 | PC.NURSE ---
Nitroglycerin drip stopped at this time. VS as documented. No distress observed.
[2020-11-09 06:00] LABS: Blood Urea Nitrogen 13 mg/dL (8-23); Calcium 9.2 mg/dL (8.5-10.5); Carbon Dioxide 28 mmol/L (22-29); Chloride 103 mmol/L (98-107); Glucose 134 mg/dL (65-115); Osmolality Calculated 290 mOsm/kg (285-295); Sodium 139 mmol/L (136-145)
[2020-11-09 06:09] LABS: Anion Gap 11.8 (5-19); Potassium 3.8 mmol/L (3.5-5.1)
[2020-11-09] MEDS: rivaroxaban 10 mg Tablet 20 MG PO (07:41)
[2020-11-09] MEDS: losartan 50 mg Tablet 25 MG PO (07:41)
--- NOTE | 2020-11-09 08:52 | PC.NURSE ---
spoke with dr elliott during rounding about patient medications and blood pressures and heart rate. instructions to stop amlodipine given and give metoprolol and varapamil as ordered
[2020-11-09] MEDS: verapamil ER 240 mg Tablet 120 MG PO (08:54)
[2020-11-09] MEDS: verapamil ER 180 mg Tablet PO (08:55)
[2020-11-09] MEDS: metoprolol tartrate 25 mg Tablet PO ×2 (08:55→20:25)
--- NOTE | 2020-11-09 09:08 | PC.CHAP ---
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 [] Patient/Family/Request visit [] Outpatient visit [] Follow-up visit [] Physician referral [] Code/Alert [x] Routine visit [] Staff referral [] Actively dying [] Patient sleeping [] Family support [] [] Out of room [] Palliative care [] [] Receiving care in room [] Pre-surgical visit [] Trauma [] Long length of stay [] ICU visit [] Other: Relational/Emotional Strength [] Patient feels connected with others/family/visitors/staff [] Distress [] Loneliness/isolation [] Abandonment Spirituality of Patient [] Person of Tiff [] Attends Yazidism of their Tiff [] Believes in Prayer [] Reads Bible or Orthodox materials [] There are Spiritual issues to be addressed Language Path Interventions [x] Prayer [x] Active listening x] Non-anxious presence [x] Spiritual/emotional support [] Crisis/trauma care [] Spiritual counseling [] Bereavement support [] Provided bereavement packet [] Provided Bible/devotional materials [] Provided toy/stuffed animal, coloring book to patient or family member [] Provided Communion [] Anointing/Johnson [] Salvation [x] Completed spiritual assessment [] Other: Impact on Illness or Injury [] Angry [] Fearful [] Anxious [] Often cries [] Exhaustion [] Unable to work [] Unable to attend jain [] Unable to walk/stand [] Unable to read [] Unable to drive [] Unable to eat/drink [] Unable to sleep [] Unable to be with family [] Patient intubated [] Other: Summary patient rested well. Breathing somewhat easier Time spent with patient 5 min
--- NOTE | 2020-11-09 09:18 | CT_ITS ---
WS: [id number] CT HEAD NONCONTRAST HISTORY: dizziness TECHNIQUE: Contiguous axial imaging performed through the brain in 2.5 mm imaging. Bone and soft tiss ue windows. Sagittal and coronal reformats reviewed. All CT scans at [facility] use at ast one of these dose optimization techniques: automated exposure control; mA and/or kV adjustment pe r patient size (includes targeted exams where dose is matched to clinical indication); or iterative r econstruction. DLP: 689.86 mGy.cm COMPARISON: 01/31/2020 No acute intracranial hemorrhage, midline shift or mass effect. Very mild bilateral cerebral atrophy. Chronic ischemic changes are stable. Small lacunar infarct in t he LEFT thalamus and also in the external capsules bilaterally. Additional area of encephalomalacia a nd volume loss in the LEFT occipital lobe is likely from a prior infarct. No interval change. Ventricles: Normal size with no hydrocephalus. Paranasal sinuses: As visualized are clear. Mastoid air cells: Well pneumatized. Calvarium and scalp: Skull is intact with no soft tissue edema or swelling. CT/CT head wo con* [id number] IMPRESSION: 1. No acute intracranial hemorrhage or edema. 2. Stable LEFT thalamic and external capsule lacunar infarcts and prior small infarct in the LEFT occipital lobe.
--- NOTE | 2020-11-09 12:10 | P.PN_ITS ---
Subjective Subjective: Interval history: This morning patient was examined, she is feeling better, no chest pain, no palpitations, no nausea, no vomiting, no headaches, but does get intermittent dizziness, unsteadiness, she tells me that her outpatient physician has done extensive tests, and cannot figure out what is giving her the symptoms Vitals/I&O/Wt Last Vital Signs Temp 97.6 F 11/09/20 08:14 Pulse 94 11/09/20 09:22 Resp 21 H 11/09/20 07:53 BP 152/112 11/09/20 07:53 Pulse Ox 98 11/09/20 09:22 11/08/20 11/09/20 11/09/20 22:59 06:59 14:59 Intake Total 242.675 / 242.675 13.050 / 255.725 360 / 360 Balance 242.675 / 242.675 13.050 / 255.725 360 / 360 Weight last 48 hrs Weight 81.647 kg Physical Exam Const: COMMON NORMALS: no acute distress and patient oriented x3 HENMT: COMMON NORMALS: normocephalic HEAD & SCALP: normocephalic Neck/C-Spine: COMMON NORMALS: no JVD Resp: COMMON NORMALS: normal respiratory effort, No retractions, No use of accessory muscles and clear to auscultation bilaterally AUSCULTATION: clear to auscultation bilaterally Cardio: COMMON NORMALS: no JVD, regular rate, regular rhythm, S1 normal heart sound present and S2 normal heart sound present RATE: regular rate RHYTHM: regular rhythm HEART SOUNDS: S1 normal heart sound present and S2 normal heart sound present GI: COMMON NORMALS: Normal to inspection, nondistended, normoactive bowel sounds present, Soft to palpation, non-tender, No hepatosplenomegaly present, no masses and no bruits PALPATION: Yes Soft to palpation and Yes No hepatosplenomegaly present Extremity: COMMON NORMALS: capillary refill normal, no clubbing, cyanosis or edema, no calf tenderness and no pedal edema Neuro: COMMON NORMALS: patient oriented x3, CN's II-XII intact bilaterally, moves all extremities and no focal motor deficits Psych: COMMON NORMALS: mental status grossly normal Data : 11/08/20 15:24 11/09/20 04:40 A&P Assessment and plan (1) Atrial fibrillation: -Still in A. fib -Heart rates are better controlled -Continue verapamil 300 mg -Metoprolol 25 twice daily added -Echocardiogram ordered -No chest pain baseline troponin is 14, delta 2.53, EKG no acute ST-T wave changes -Continue Xarelto -BNP 2924 -Lasix 20 mg daily Status: Acute Qualifiers: Atrial fibrillation type: unspecified Qualified Code(s): I48.91 - Unspecified atrial fibrillation (2) CVA (cerebral vascular accident): -CT of the head shows Stable LEFT thalamic and external capsule lacunar infarcts and prior small infarct in the LEFT occipital lobe. -Likely embolic strokes from A. fib, but also related to hypertension -Needs better blood pressure control -Aspirin, statin Status: Acute (3) New onset of congestive heart failure: -Lasix 20 mg daily Status: Acute (4) Hypertensive urgency: -Continue verapamil -Metoprolol 25 twice daily added -Losartan 25 mg daily -Lasix Status: Acute (5) Hyperlipidemia: Status: Acute Qualifiers: Hyperlipidemia type: unspecified Qualified Code(s): E78.5 - Hyperlipidemia, unspecified (6) Hypertension: Status: Acute Qualifiers: Hypertension type: essential hypertension Qualified Code(s): I10 - Essential (primary) hypertension (7) Breast cancer: Status: Acute Additional A&P Information Full code Cardiac diet DVT prophylaxis not indicated due to current use of Xarelto Attestations Medical Necessity Statement*: Patient requires hospitalization due to atrial fibrillation with RVR, hypertensive urgency Coding Level of Care Code Acute Commercial Lines Account Assistant for g Fwd Diagnoses Atrial fibrillation I48.91 Atrial fibrillation type: unspecified CVA (cerebral vascular accident) I63.9 New onset of congestive heart failure I50.9 Hypertensive urgency I16.0 Hyperlipidemia E78.5 Hyperlipidemia type: unspecified Hypertension I10 Hypertension type: essential hypertension Breast cancer C50.919
[2020-11-09] MEDS: FUROsemide 20 mg Tablet PO (13:18)
--- NOTE | 2020-11-09 13:22 | PC.NURSE ---
upon taking in ordered aspirin patient stated i am not supposed to take that since i am on the other blood thinner Dr elliott contacted via phone okayed not to give aspirin.
--- NOTE | 2020-11-09 18:54 | PC.NURSE ---
patient reported to this nurse I took a stomach pill out of my purse upon attempting to administer ordered pepcid. Dr Livingston notified no further instructions at this time. patient educated on not taking medications that are not ordered and the safety issues of taking things that may interact with medication that are currently being administered to treat acute issues patient verbalized understanding stated i wont take any more
[2020-11-09] MEDS: atorvastatin 40 mg Tablet 80 MG PO (20:25)
--- NOTE | 2020-11-09 21:02 | USCV_ITS ---
Deepali Mulligan Age: 75 Gender: F : 1945 Exam Date: 11/09/2020 05:08 Ordering Phys: Michael Cortez MD Technologist: Shelby Montejo [place] [facility] [place] CHF AND AFIB BP: 136 / 75 HR: 87 Rhythm: Atrial fibrillation Technical Quality: Adequate MEASUREMENTS (Male / Female) Normal Values 2D ECHO LV Diastolic Diameter PLAX 4.7 cm 4.2 - 5.9 / 3.9 - 5.3 cm LV Systolic Diameter PLAX 4.5 cm LV Chamber Size 4.9 cm IVS Diastolic Thickness 1.0 cm 0.6 - 1.0 / 0.6 - 0.9 cm IVS Systolic Thickness 1.9 cm LVPW Diastolic Thickness 1.5 cm 0.6 - 1.0 / 0.6 - 0.9 cm LVPW Systolic Thickness 2.0 cm RV Chamber Size 3.3 cm LVOT Diameter 2.1 cm LV Ejection Fraction 2D Teich 34.0 % LV Ejection Fraction MOD 2C 68.6 % LV Ejection Fraction 2C AL 71.2 % LA Diameter 4.3 cm LA Width 4.8 cm LA Height 5.3 cm RA Width 3.3 cm Aorta at Sinotubular Diameter 2.9 cm M-MODE LV Diastolic Diameter MM 6.4 cm 4.2 - 5.9 / 3.9 - 5.3 cm LV Systolic Diameter MM 4.1 cm LV Ejection Fraction MM Teich 63.9 % IVS Diastolic Thickness MM 1.2 cm 0.6 - 1.0 / 0.6 - 0.9 cm IVS Systolic Thickness MM 1.8 cm LVPW Diastolic Thickness MM 1.6 cm 0.6 - 1.0 / 0.6 - 0.9 cm LVPW Systolic Thickness MM 2.2 cm RV Diastolic Diameter MM 1.0 cm Aortic Annulus Diameter 3.1 cm LA Ao Ratio MM 1.5 MV E Point Septal Separation 1.1 cm DOPPLER AV Peak Velocity 123.0 cm/s LVOT Peak Velocity 77.0 cm/s AV Area Cont Eq vti 2.0 cm squared AV Area Cont Eq pk 2.1 cm squared MV Area PHT 5.0 cm squared Mitral E to A Ratio 4.8 MV E' Velocity 68.5 cm/s Mitral E to MV E' Ratio 14.5 Mitral E to LV E' Lateral Ratio 9.4 Mitral E to LV E' Septal Ratio 33.4 TR Peak Velocity 262.2 cm/s TR Peak Gradient 27.5 mmHg TR Mean Velocity 196.5 cm/s TR Mean Gradient 17.4 mmHg TR Velocity Time Integral 83.7 cm TV Peak E Velocity 81.0 cm/s Right Atrial Pressure 8.0 mmHg Pulmonary Artery Systolic Pressu 35.5 mmHg PV Peak Velocity 76.0 cm/s RV Acceleration Time 0.1 s RV Ejection Time 0.3 s RV AcT/ET 0.3 FINDINGS Left Ventricle Normal left ventricular cavity size. Low normal left ventricular systolic function. Left ventricular ejection fraction is estimated at 51 %. No diagnostic regional wall motion abnormalities. Abnormal diastolic function. Right Ventricle Normal right ventricular size and systolic function. Right ventricular systolic pressure 34 mmHg. Right Atrium Mildly increased right atrial size. Right atrial pressure estimated at 3 mmHg. Left Atrium Moderately increased left atrial size. Mitral Valve Structurally normal mitral valve. No mitral valve stenosis. Moderate posteriorly directed mitral valve regurgitation. Aortic Valve Mildly thickened and calcified trileaflet aortic valve. No aortic valve stenosis. Trace aortic valve regurgitation. Tricuspid Valve Structurally normal tricuspid valve. No tricuspid valve stenosis. Mild tricuspid valve regurgitation. Pulmonic Valve Pulmonic valve not well visualized. No pulmonary valve stenosis. Mild pulmonary valve regurgitation. Pericardium No pericardial effusion. Aorta Normal size aortic root and proximal ascending aorta. Normal- sized inferior vena cava with greater than 50% respiratory variation. CONCLUSIONS 1. Normal left ventricular cavity size. Low normal left ventricular systolic function. Left ventricular ejection fraction is estimated at 51 %. No diagnostic regional wall motion abnormalities. Abnormal diastolic function. 2. Pulmonary artery pressure estimated at 34 mmHg. 3. Moderately increased left atrial size. 4. Moderate posteriorly directed mitral valve regurgitation. 5. When compared to previous echo dated 05/05/2019, there may not have been any significant change. Jody Solis MD (Electronically Signed) Final Date: 09 November 2020 13:34 Amended: 09 November 2020 13:35 C
[2020-11-10] VITALS (8 sets, daily range): BP systolic 121–156; BP diastolic 74–122; PULSE 84–114; RESP 12–19; TEMP 36.3–37.1; O2SAT 94–96
[2020-11-10 05:07] LABS: Basophils % 0.5 %; Eosinophils # 0.1 10^3/uL (0.0-0.8); Eosinophils % 1.1 %; Hemoglobin 11.5 g/dL (11.5-15.3); Lymphocytes # 1.1 10^3/uL (0.8-4.8); Lymphocytes % 17.6 %; Mean Corpuscular HGB Conc 31.9 g/dL (30.0-36.0); Mean Corpuscular Hemoglobin 28.8 pg (28.0-34.0); Mean Platelet Volume 12.3 fL (7.4-10.4); Monocytes # 0.8 10^3/uL (0.2-0.9); Monocytes % 12.2 %; Neutrophils # 4.45 10^3/uL (1.8-7.7); Neutrophils % 68.4 %; Nucleated Red Blood Cells % 0 %; Platelet Count 180 10^3/cmm (130-400); Red Cell Distribution Width 13.2 % (12.1-15.1); White Blood Count 6.5 10^3/uL (4.0-10.0)
[2020-11-10 06:16] LABS: Alanine Aminotransferase 17 U/L (0-33); Albumin Level 3.4 g/dL (3.5-5.2); Alkaline Phosphatase 83 IU/L (35-105); Anion Gap 12.8 (5-19); Aspartate Amino Transferase 16 U/L (0-32); Blood Urea Nitrogen 13 mg/dL (8-23); Calcium 8.7 mg/dL (8.5-10.5); Carbon Dioxide 27 mmol/L (22-29); Chloride 102 mmol/L (98-107); Globulin 3.2 g/dL (1.3-4.6); Glucose 96 mg/dL (65-115); Magnesium 2.1 mg/dL (1.7-2.3); Osmolality Calculated 286 mOsm/kg (285-295); Phosphorus 2.9 mg/dL (2.5-4.5); Potassium 3.8 mmol/L (3.5-5.1); Sodium 138 mmol/L (136-145); Total Bilirubin 0.6 mg/dL (0.15-1.2); Total Protein 6.6 g/dL (6.6-8.7)
[2020-11-10] MEDS: losartan 50 mg Tablet PO (09:37)
[2020-11-10] MEDS: aspirin 81 mg EC Tablet PO (09:38)
[2020-11-10] MEDS: FUROsemide 20 mg Tablet PO (09:38)
[2020-11-10] MEDS: rivaroxaban 10 mg Tablet 20 MG PO (09:38)
[2020-11-10] MEDS: metoprolol tartrate 25 mg Tablet PO (09:38)
[2020-11-10] MEDS: famotidine 20 mg Tablet PO (09:38)
[2020-11-10] MEDS: verapamil ER 240 mg Tablet 120 MG PO (09:39)
[2020-11-10] MEDS: verapamil ER 180 mg Tablet PO (09:39)
--- NOTE | 2020-11-10 11:45 | PM.DCS ---
Discharge Providers Date of Admission: 11/09/20 14:36 Date of Discharge: November 10, 2020 Attending Provider at Admission: Michael Cortez MD Attending Provider at Discharge: Harley Livingston MD Primary Care Provider: DI Schaefer Diagnoses at Discharge Discharge Diagnosis (1) Atrial fibrillation: Status: Acute Qualifiers: Atrial fibrillation type: unspecified Qualified Code(s): I48.91 - Unspecified atrial fibrillation (2) CVA (cerebral vascular accident): Status: Acute (3) New onset of congestive heart failure: Status: Acute (4) Hypertensive urgency: Status: Acute (5) Hyperlipidemia: Status: Acute Qualifiers: Hyperlipidemia type: unspecified Qualified Code(s): E78.5 - Hyperlipidemia, unspecified (6) Hypertension: Status: Acute Qualifiers: Hypertension type: essential hypertension Qualified Code(s): I10 - Essential (primary) hypertension (7) Breast cancer: Status: Acute Reason for Visit Reason for Visit: SOB/CP Hospital Course Hospital Course This is a 75-year-old female with a past medical history of hypertension, hyperlipidemia, breast cancer, atrial fibrillation on Xarelto who comes to [facility] due to complaints of chest palpitations and elevated blood pressure For her chest palpitations, patient was diagnosed with A. fib with RVR in the emergency room, her home Xarelto was continued, home verapamil was continued, metoprolol 25 twice daily was added, she remained in A. fib, but her heart rates were better controlled between 100s to 110s, she was relatively asymptomatic. She will be discharged on her home verapamil, Xarelto, metoprolol 25 mg twice daily, with close follow-up with cardiology as outpatient. Her echocardiogram on admission showed an ejection fraction low normal at 51%, no diagnostic regional wall motion abnormalities, abnormal diastolic dysfunction, moderate posterior directed mitral valve regurgitation. On admission her EKG showed no acute ST-T wave changes, no significant delta troponin, given her drop in ejection fraction, I will have patient follow-up with cardiology for consideration of stress testing as outpatient. She will be discharged on aspirin, statin, metoprolol, losartan as above Given patient's evidence of diastolic CHF, bilateral lower edema, she will be discharged on Lasix 20 mg daily. Patient also had complaints of dizziness on admission, which seemed more chronic in nature, she has had an extensive work-up as outpatient by her physician. Head CT showed: No acute intracranial hemorrhage, midline shift or mass effect. Very mild bilateral cerebral atrophy. Chronic ischemic changes are stable. Small lacunar infarct in the LEFT thalamus and also in the external capsules bilaterally. Additional area of encephalomalacia and volume loss in the LEFT occipital lobe is likely from a prior infarct. No interval change. Ventricles: Normal size with no hydrocephalus. Thus likely patient's unsteadiness was related to lacunar infarcts, in the thalamus, external capsules bilaterally, left occipital lobe likely related to resistant hypertension. Patient tells me that she is compliant with Xarelto therapy. Plan is to continue Xarelto. I have added aspirin, statin. In addition to blood pressure control. Patient is to follow-up with neurology as outpatient. I do not feel that she has failed Xarelto therapy, but if she were to have recurrent dizziness, and more TIA like symptoms then we can certainly take her off Xarelto and try and other newer oral anticoagulants. Patient carotid artery ultrasound is pending on discharge. patient should follow-up with neurology in 1 to 2 months. Patient had resistant hypertension on admission, requiring nitro drip, and quite elevated diastolic hypertension. I have discharged her on losartan 50 mg twice daily. Metoprolol 25 mg twice daily. Continue verapamil. I have also provided chlorthalidone 25 mg daily, to be used if her systolic blood pressures greater than 150 or diastolic blood pressure greater than 90. Patient should follow-up with her primary care provider in 1 week for blood pressure check. Physical Exam Const: COMMON NORMALS: no acute distress and patient oriented x3 HENMT: COMMON NORMALS: normocephalic HEAD & SCALP: normocephalic Neck/C-Spine: COMMON NORMALS: no JVD Resp: COMMON NORMALS: normal respiratory effort, No retractions, No use of accessory muscles and clear to auscultation bilaterally AUSCULTATION: clear to auscultation bilaterally Cardio: COMMON NORMALS: no JVD, regular rate, regular rhythm, S1 normal heart sound present and S2 normal heart sound present RATE: regular rate RHYTHM: regular rhythm HEART SOUNDS: S1 normal heart sound present and S2 normal heart sound present GI: COMMON NORMALS: Normal to inspection, nondistended, normoactive bowel sounds present, Soft to palpation, non-tender, No hepatosplenomegaly present, no masses and no bruits PALPATION: Yes Soft to palpation and Yes No hepatosplenomegaly present Extremity: COMMON NORMALS: capillary refill normal, no clubbing, cyanosis or edema, no calf tenderness and no pedal edema Neuro: COMMON NORMALS: patient oriented x3 Psych: COMMON NORMALS: mental status grossly normal Discharge Data Data Completed and Pending: Completed Studies During Hospitalization Category Date Time Status CT angio chest PE protcl [id number] Stat Cat Scan 11/08/20 17:[address] head wo con* [id number] Routine Cat Scan 11/09/20 09:18 Completed XR chest 1V betty ble [id number] Stat Exams 11/08/20 15:48 Completed CV echo complete* [id number] Routine Ultrasound 11/09/20 21:02 Completed Pending at discharge Category Date Time Status Complete Blood Co unt w/Auto AM LABS Lab 11/11/20 04:00 Ordered Complete Blood Co unt w/Auto AM LABS Lab 11/12/20 04:00 Ordered Comprehensive Met abolic Panel AM LA BS Lab 11/11/20 04:00 Ordered Comprehensive Met abolic Panel AM LA BS Lab 11/12/20 04:00 Ordered Magnesium AM LABS Lab 11/11/20 04:00 Ordered Magnesium AM LABS Lab 11/12/20 04:00 Ordered Phosphorus AM LAB S Lab 11/11/20 04:00 Ordered Phosphorus AM LAB S Lab 11/12/20 04:00 Ordered Labs from last 24 hours 11/10/20 11/10/20 04:25 04:25 WBC 6.5 RBC 4.00 L Hgb 11.5 Hct 36.0 L MCV 90.0 MCH 28.8 MCHC 31.9 RDW 13.2 Plt Count 180 MPV 12.3 H Neut % (Auto) 68.4 Lymph % (Auto) 17.6 Livingston % (Auto) 12.2 Eos % (Auto) 1.1 Baso % (Auto) 0.5 Neut # (Auto) 4.45 Lymph # (Auto) 1.1 Livingston # (Auto) 0.8 Eos # (Auto) 0.1 Baso # (Auto) 0.0 Nucleated RBC % (a uto) 0 Nucleated RBCs # 0.0 Sodium 138 Potassium 3.8 Chloride 102 Carbon Dioxide 27 Anion Gap 12.8 BUN 13 Creatinine 0.8 GFR Calculation Not Reportable Glucose 96 Calculated Osmolal ity 286 Calcium 8.7 Phosphorus 2.9 Magnesium 2.1 Total Bilirubin 0.6 AST 16 ALT 17 Alkaline Phosphata se 83 Total Protein 6.6 Albumin 3.4 L Globulin 3.2 Vitals: Last Vital Signs Temp 98.8 F 11/10/20 08:00 Pulse 98 11/10/20 09:54 Resp 16 11/10/20 08:00 BP 130/107 11/10/20 08:00 Pulse Ox 95 11/10/20 09:54 Discharge Plan Discharge Patient Disposition: Home Condition: Stable Prescriptions: New losartan 50 mg Tablet 50 mg PO Q12H 30 Days Qty: 60 RF: 0 atorvastatin 40 mg Tablet 80 mg PO BEDTIME 30 Days Qty: 30 RF: 0 aspirin 81 mg Tablet,Delayed Release (Dr/Ec) 81 mg PO DAILY 30 Days Qty: 30 RF: 0 furosemide 20 mg Tablet 20 mg PO DAILY 30 Days Qty: 30 RF: 0 metoprolol tartrate 25 mg Tablet 25 mg PO BID@0900,2100 30 Days Qty: 60 RF: 0 potassium chloride [Klor-Con 10] 10 mEq tablet extended release 10 meq PO DAILY 30 Days Qty: 30 RF: 0 chlorthalidone 25 mg tablet 25 mg PO DAILY 30 Days Qty: 30 RF: 0 Continued famotidine 10 mg tablet 10 mg PO DAILY@0830 RF: 0 verapamil 180 mg capsule,ext rel. pellets 24 hr 180 mg PO DAILY@0830 RF: 0 verapamil 120 mg capsule,ext rel. pellets 24 hr 120 mg PO DAILY@0830 RF: 0 Xarelto 20 mg tablet 20 mg PO DAILY@0830 RF: 0 Discontinued valsartan 40 mg tablet 40 mg PO DAILY@0830 RF: 0 Discharge Orders: Discharge Order (Routine); Ordered 11/10/20 Ordered By: Harley Livingston Other Ambulatory Orders: Complete Blood Count w/Auto (Routine) Timeframe: 1 Week Location: Determined by Patient Ordered By: Harley Livingston Comprehensive Metabolic Panel (Routine) Timeframe: 1 Week Facility: [facility] - Location: Lab - Main Lab Ordered By: Harley Livingston Referrals: Patricia Silverio FNP [Primary Care Provider] - 7-10 days Jody Solis MD [Physician] - 1 month (consideration of stress testing) Discharge Diet: Cardiac Discharge Activity: Resume usual activity Patient Instructions: Atrial Fibrillation (DC), Ischemic Stroke (DC), Chronic Hypertension (DC) Activity Restrictions/Additional Instructions: -Check blood pressures once daily -If systolic blood pressure greater than 150 or diastolic blood pressure greater than 90 please start taking chlorthalidone 25 mg daily -If you feel lightheaded or dizzy come back to the emergency room -Follow-up with primary care provider in 1 week -Repeat blood work in a week -If you have bloody or black stools go back to the emergency room -If you have chest palpitations come back to the emergency room -Follow-up with cardiology in 1 to 2 months Discharge Attestations Time Spent in Discharge Care*: less than 30 min Quality Metrics Clinical Quality Measures During this hospital stay, did patient experience: Stroke Contraindication to Antithrombotic: Antithrombotic prescribed Contraindication to Anticoagulation: Anticoagulation prescribed Contraindication to Statin: Statin prescribed Coding Level of Care Code Acute Process Control Board Operator for g Fwd Diagnoses Atrial fibrillation I48.91 Atrial fibrillation type: unspecified CVA (cerebral vascular accident) I63.9 New onset of congestive heart failure I50.9 Hypertensive urgency I16.0 Hyperlipidemia E78.5 Hyperlipidemia type: unspecified Hypertension I10 Hypertension type: essential hypertension Breast cancer C50.919
--- NOTE | 2020-11-10 11:52 | USR_ITS ---
PROCEDURE INFORMATION: Exam: US Duplex Bilateral Extracranial Arteries Exam date and time: 11/10/2020 1:12 PM Age: 75 years old Clinical indication: Dizziness and weakness, extremity; Additional info: Stroke TECHNIQUE: Imaging protocol: Real-time Duplex ultrasound scan of the bilateral carotid and vertebral arteries combining neri scale, color Doppler and spectral waveform analysis. Bilateral exam. COMPARISON: No relevant prior studies available. FINDINGS: Right common carotid artery: 61/15 Mild atherosclerotic plaque at the bulb. No occlusion or stenosis. Waveforms are normal. Right internal carotid artery: 78/25 Unremarkable. No occlusion or stenosis. Waveforms are normal. Right ICA/CCA ratio: 1.27. Within normal limits. Right external carotid artery: No stenosis in the origin. Right vertebral artery: Unremarkable. Antegrade flow. Left common carotid artery: 60/11 Mild atherosclerotic plaque at the bulb. No occlusion or stenosis. Waveforms are normal. Left internal carotid artery: 57/21 Unremarkable. No occlusion or stenosis. Waveforms are normal. Left ICA/CCA ratio: 0.96. Within normal limits. Left external carotid artery: No stenosis in the origin. Left vertebral artery: Unremarkable. Antegrade flow. US/CV carotid duplex BI* [id number] IMPRESSION: No hemodynamically significant arterial stenosis. REFERENCES: SRU CRITERIA. The degree of internal carotid artery stenosis is based on criteria defined by the Society of Radiologists in Ultrasound (SRU). Normal is no stenosis. Mild is less than 50% stenosis. Moderate is 50-69% stenosis. Severe is greater than 69% stenosis to near occlusion. Near occlusion is a markedly narrowed lumen. Total occlusion is no detectable patent lumen.
== END 2020-11-10 15:10 | disposition home or self-care (01) | DRG 304 ==
LOC: ER 15:34 → CSU 21:47
PROVIDERS: Admitting Provider Internal Medicine; Emergency Provider Family Medicine; PCP Nurse Practitioner Family; Visit Provider Family Medicine
DX: I16.0 Hypertensive urgency (principal); I50.31 Acute diastolic (congestive) heart failure; I48.0 Paroxysmal atrial fibrillation; Z85.3 Personal history of malignant neoplasm of breast; Z92.21 Personal history of antineoplastic chemotherapy; Z92.3 Personal history of irradiation; K21.9 Gastro-esophageal reflux disease without esophagitis; Z90.12 Acquired absence of left breast and nipple; Z86.73 Personal history of transient ischemic attack (TIA), and cerebral infarction without residual deficits; E78.5 Hyperlipidemia, unspecified; I11.0 Hypertensive heart disease with heart failure; Z79.01 Long term (current) use of anticoagulants
CPT/HCPCS: 12345; 36415; 70450; 71045; 71275; 80048; 80053; 83690; 83735; 83880; 84100; 84443; 84484; 85025; 93005; 93306; 93880; 97116; 97161; 97165; 97535; 99283; G0378; J1200; J1720; J3490; Q9967

== ENCOUNTER 2020-11-26 15:36 | Observation (INO) | payer MEDICARE, SELFPAY ==
[2020-11-26] VITALS (25 sets, daily range): BP systolic 155–192; BP diastolic 80–138; PULSE 92–139; RESP 14–38; TEMP 36.8; O2SAT 86–99; BMI 28.1
--- NOTE | 2020-11-26 16:27 | XRR_ITS ---
PROCEDURE INFORMATION: Exam: XR Chest, 1 View Exam date and time: 11/26/2020 4:30 PM Age: 75 years old Clinical indication: Cough and dyspnea; Prior surgery; Surgery type: Lt masectomy; Additional info: Dyspnea/cough, afib TECHNIQUE: Imaging protocol: XR of the chest Views: 1 view. Total images: 1 COMPARISON: OK XR chest 1V portable [id number] 11/08/2020 4:28 PM FINDINGS: Lungs: No visible consolidated alveolar airspace disease. Findings most consistent with passive interstitial edema of congestive heart failure. Known pulmonary nodules not radiographically visible. Pleural space: No visible pleural effusion or pneumothorax. Heart/Mediastinum: Cardiomegaly with arteriosclerosis. Bones/joints: Unremarkable. Soft tissues: Status post left mastectomy. XR/XR chest 1V portable [id number] IMPRESSION: Findings most consistent with passive interstitial edema congestive heart failure.
--- NOTE | 2020-11-26 16:39 | W.ED.ARRPALP ---
Documented by User: Papo Fuentes DO 11/27/20 12:56 HPI - Arrhythmia/Palpitations General: Chief Complaint: Arrhythmia/Palpitations Stated Complaint: AFIB, SENT FROM [facility] Time Seen by Provider: 11/26/20 16:19 History of Present Illness: HPI narrative: 75-year-old female presents emergency room with complaint of rapid heart rate. She was recently hospitalized for A. fib she seemed to go home okay she thought that was about 2 weeks ago last few days she been increasing shortness of breath increasing rapid heart rate and increasing orthopnea she did have quite a bit of medication changes while she was in the hospital last she is continue all of her medication she denies running out or making any further changes. She not really had any chest pain. MD complaint: rapid heart beat, heart racing and atrial fibrillation Onset (ago): day(s) Duration: constant Severity: moderate Context: occurred during rest Arrhythmia history: atrial fibrillation Associated symptoms: Reports anxiety, nausea and short of breath; Deny cough, diaphoresis, muscle cramps, paresthesias, pre-syncope, sense of impending doom, syncope or vomiting Review of Systems Const: Denies: diaphoresis ENMT: Denies: throat pain, ear or mastoid pain, nasal discharge or nasal congestion Card: Denies: syncope or pre-syncope Resp: Denies: dyspnea, productive cough or non-productive cough GI: Reports: nausea; Denies: vomiting : Denies: flank pain, difficulty voiding, dysuria, urinary frequency or urinary urgency Musc: Denies: muscle cramps Skin/Breast: Denies: rash or pruritus Psych: Reports: anxiety PFSH ED PFSH: Medical History (Updated 11/26/20 @ 21:37 by Xavier Ferguson MD) Acid reflux Breast cancer Elevated serum creatinine Elevated serum creatinine High risk medication use Hypertension Other 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 Surgical History H/O: hysterectomy History of inguinal hernia repair History of left mastectomy Family History Other Hyperlipidemia Psychiatric illness Denies family history of Rheumatoid arthritis Lupus Social History Smoking and tobacco status: never smoked Second hand smoke exposure: No Alcohol intake: never Lives independently: Yes Household members: none Current occupational status: employed Current occupation: [employer] History of recent travel: No Current gender identity: Female Physical Exam Const: COMMON NORMALS: average body habitus, patient oriented x3 and alert GENERAL APPEARANCE: cooperative, comfortable, well kempt and well developed NUTRITIONAL APPEARANCE: obese ORIENTATION/CONSCIOUSNESS: Yes awake, Yes oriented to person and Yes oriented to place HENMT: COMMON NORMALS: normocephalic, atraumatic, EAC's normal, TM's normal bilaterally, Normal external nose present, moist oral mucous membranes and oropharynx normal HEAD & SCALP: normocephalic and atraumatic NOSE: Normal external nose present EXTERNAL AUDITORY CANAL: EAC's normal TYMPANIC MEMBRANE: TM's normal bilaterally MOUTH: Normal oral and palatal mucosa present, lip normal and tongue normal THROAT: posterior oropharynx normal and tonsils normal Neck/C-Spine: COMMON NORMALS: no meningeal signs Resp: COMMON NORMALS: normal respiratory effort, No retractions, No use of accessory muscles and clear to auscultation bilaterally AUSCULTATION: clear to auscultation bilaterally Cardio: RATE: tachycardic RHYTHM: abnormal rhythm irregularly irregular HEART SOUNDS: no murmurs GI: COMMON NORMALS: Normal to inspection, nondistended, normoactive bowel sounds present, Soft to palpation and No hepatosplenomegaly present PALPATION: Yes Soft to palpation and Yes No hepatosplenomegaly present : COMMON NORMALS: Yes no CVA tenderness BLADDER/KIDNEY EXAM: Yes no CVA tenderness Back/Pelvis: COMMON NORMALS: no CVA tenderness LUMBAR SPINE/LOWER BACK: Yes normal to inspection Extremity: COMMON NORMALS: no clubbing, cyanosis or edema, no calf tenderness and no pedal edema Neuro: COMMON NORMALS: patient oriented x3 SENSORIUM/ORIENTATION: Yes alert, Yes oriented to person and Yes oriented to place MENINGEAL SIGNS: Yes no meningeal signs Psych: APPEARANCE: Yes well kempt Skin: COMMON NORMALS: no rashes or lesions noted and turgor normal GENERAL SKIN EXAM: no rashes or lesions noted and turgor normal Course Vital Signs: Vital signs: Vital Signs Temperature 98.1 F 11/27/20 11:36 Pulse Rate 85 11/27/20 11:36 Respiratory Rate 23 H 11/27/20 11:36 Blood Pressure 138/78 11/27/20 11:36 Pulse Oximetry 90 11/27/20 11:36 MDM - Arrhythmia/Palpitations MDM Narrative: Medical decision making narrative: Initially attempted to convert patient and avoid starting an IV drip gave her IV Lopressor IV push and oral metoprolol however she not convert that she was changed to Cardizem drip. We are still attempting to get rate control. Change of shift care was handed off to Dr. Sparks see his notes for final diagnosis and disposition Lab Data: Labs: Lab Results 11/26/20 11/26/20 11/26/20 Range/Units 16:39 16:39 17:02 WBC 7.0 (4.0-10.0) 10^3/ uL RBC 4.16 (4.1-5.3) 10^6/u L Hgb 11.8 (11.5-15.3) g/dL Hct 36.5 L (37.0-47.0) % MCV 87.7 (81-99) fL MCH 28.4 (28.0-34.0) pg MCHC 32.3 (30.0-36.0) g/dL RDW 13.2 (12.1-15.1) % Plt Count 361 (130-400) 10^3/c mm MPV 11.4 H (7.4-10.4) fL Neut % (Auto) 67.7 % Lymph % (Auto) 18.2 % [place] % (Auto) 11.9 % Eos % (Auto) 1.6 % Baso % (Auto) 0.3 % Neut # (Auto) 4.72 (1.8-7.7) 10^3/u L Lymph # (Auto) 1.3 (0.8-4.8) 10^3/u L [place] # (Auto) 0.8 (0.2-0.9) 10^3/u L Eos # (Auto) 0.1 (0.0-0.8) 10^3/u L Baso # (Auto) 0.0 (0.0-0.1) 10^3/u L Nucleated RBC % (a uto) 0 % Nucleated RBCs # 0.0 /100WBC Sodium 135 L (136-145) mmol/L Potassium 3.9 (3.5-5.1) mmol/L Chloride 97 L (98-107) mmol/L Carbon Dioxide 26 (22-29) mmol/L Anion Gap 15.9 (5-19) BUN 13 (8-23) mg/dL Creatinine 0.8 (0.5-0.9) mg/dL GFR Calculation Not Reportable Glucose 108 (65-115) mg/dL Calculated Osmolal ity 281 L (285-295) mOsm/k g Calcium 9.2 (8.5-10.5) mg/dL Total Bilirubin 0.4 (0.15-1.2) mg/dL AST 22 (0-32) U/L ALT 25 (0-33) U/L Alkaline Phosphata se 99 (35-105) IU/L Troponin T Baselin e (0-10) ng/L NT-Pro-B Natriuret Pep 3418 H (0-450) pg/mL Total Protein 7.6 (6.6-8.7) g/dL Albumin 3.6 (3.5-5.2) g/dL Globulin 4.0 (1.3-4.6) g/dL Urine Color Straw (Yellow) Urine Appearance Clear (CLEAR) Urine pH 7 (5-7) Ur Specific Gravit y 1.005 (1.005-1.030) Urine Protein Neg (Negative) Urine Glucose (UA) Norm (Normal) Urine Ketones Negative (Negative) Urine Blood Neg (Negative) Urine Nitrate Negative (Negative) Urine Bilirubin Neg (Negative) Urine Urobilinogen Norm (Negative) mg/dL Ur Leukocyte Melody ase Negative (Negative) 11/26/20 Range/Units 20:36 WBC (4.0-10.0) 10^3/ uL RBC (4.1-5.3) 10^6/u L Hgb (11.5-15.3) g/dL Hct (37.0-47.0) % MCV (81-99) fL MCH (28.0-34.0) pg MCHC (30.0-36.0) g/dL RDW (12.1-15.1) % Plt Count (130-400) 10^3/c mm MPV (7.4-10.4) fL Neut % (Auto) % Lymph % (Auto) % [place] % (Auto) % Eos % (Auto) % Baso % (Auto) % Neut # (Auto) (1.8-7.7) 10^3/u L Lymph # (Auto) (0.8-4.8) 10^3/u L [place] # (Auto) (0.2-0.9) 10^3/u L Eos # (Auto) (0.0-0.8) 10^3/u L Baso # (Auto) (0.0-0.1) 10^3/u L Nucleated RBC % (a uto) % Nucleated RBCs # /100WBC Sodium (136-145) mmol/L Potassium (3.5-5.1) mmol/L Chloride (98-107) mmol/L Carbon Dioxide (22-29) mmol/L Anion Gap (5-19) BUN (8-23) mg/dL Creatinine (0.5-0.9) mg/dL GFR Calculation Glucose (65-115) mg/dL Calculated Osmolal ity (285-295) mOsm/k g Calcium (8.5-10.5) mg/dL Total Bilirubin (0.15-1.2) mg/dL AST (0-32) U/L ALT (0-33) U/L Alkaline Phosphata se (35-105) IU/L Troponin T Baselin e 15 H (0-10) ng/L NT-Pro-B Natriuret Pep (0-450) pg/mL Total Protein (6.6-8.7) g/dL Albumin (3.5-5.2) g/dL Globulin (1.3-4.6) g/dL Urine Color (Yellow) Urine Appearance (CLEAR) Urine pH (5-7) Ur Specific Gravit y (1.005-1.030) Urine Protein (Negative) Urine Glucose (UA) (Normal) Urine Ketones (Negative) Urine Blood (Negative) Urine Nitrate (Negative) Urine Bilirubin (Negative) Urine Urobilinogen (Negative) mg/dL Ur Leukocyte Melody ase (Negative) EKG Data^: EKG 1: Other EKG comments: Chest X-Ray 11/26/20 16:27 IMPRESSION: Findings most consistent with passive interstitial edema congestive heart failure. Discharge Plan Discharge Patient Disposition: Admitted As Inpatient Admit Provider: Xavier Ferguson Clinical Impression: Atrial fibrillation with RVR Congestive heart failure Qualifiers: Heart failure type: unspecified Heart failure chronicity: acute on chronic Qualified Code(s): I50.9 - Heart failure, unspecified Condition: Stable Coding Level of Care Code ED Supervisor Throwing Department for [facility] Fwd Exam Comprehensive Documented by User: Isabela Sparks MD 11/26/20 20:20 HPI - Arrhythmia/Palpitations General: Chief Complaint: Arrhythmia/Palpitations Stated Complaint: AFIB, [place] [facility] [place] Time Seen by Provider: 11/26/20 16:19 PFSH ED PFSH: Medical History (Updated 11/26/20 @ 21:37 by Xavier Ferguson MD) Acid reflux Breast cancer Elevated serum creatinine Elevated serum creatinine High risk medication use Hypertension Other 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 Surgical History H/O: hysterectomy History of inguinal hernia repair History of left mastectomy Family History Other Hyperlipidemia Psychiatric illness Denies family history of Rheumatoid arthritis Lupus Social History Smoking and tobacco status: never smoked Second hand smoke exposure: No Alcohol intake: never Lives independently: Yes Household members: none Current occupational status: employed Current occupation: [employer] History of recent travel: No Current gender identity: Female Course Vital Signs: Vital signs: Vital Signs Temperature 98.1 F 11/27/20 11:36 Pulse Rate 85 11/27/20 11:36 Respiratory Rate 23 H 11/27/20 11:36 Blood Pressure 138/78 11/27/20 11:36 Pulse Oximetry 90 11/27/20 11:36 MDM - Arrhythmia/Palpitations MDM Narrative: Medical decision making narrative: Patient presents here with Mario lizama with RVR along with congestive heart failure. Patient given multiple meds and her heart rate is still over 110s and was started on Cardizem drip. I spoke to the hospitalist will admit to the cardiac stepdown unit. Lab Data: Labs: Lab Results 11/26/20 11/26/20 11/26/20 Range/Units 16:39 16:39 17:02 WBC 7.0 (4.0-10.0) 10^3/ uL RBC 4.16 (4.1-5.3) 10^6/u L Hgb 11.8 (11.5-15.3) g/dL Hct 36.5 L (37.0-47.0) % MCV 87.7 (81-99) fL MCH 28.4 (28.0-34.0) pg MCHC 32.3 (30.0-36.0) g/dL RDW 13.2 (12.1-15.1) % Plt Count 361 (130-400) 10^3/c mm MPV 11.4 H (7.4-10.4) fL Neut % (Auto) 67.7 % Lymph % (Auto) 18.2 % [place] % (Auto) 11.9 % Eos % (Auto) 1.6 % Baso % (Auto) 0.3 % Neut # (Auto) 4.72 (1.8-7.7) 10^3/u L Lymph # (Auto) 1.3 (0.8-4.8) 10^3/u L [place] # (Auto) 0.8 (0.2-0.9) 10^3/u L Eos # (Auto) 0.1 (0.0-0.8) 10^3/u L Baso # (Auto) 0.0 (0.0-0.1) 10^3/u L Nucleated RBC % (a uto) 0 % Nucleated RBCs # 0.0 /100WBC Sodium 135 L (136-145) mmol/L Potassium 3.9 (3.5-5.1) mmol/L Chloride 97 L (98-107) mmol/L Carbon Dioxide 26 (22-29) mmol/L Anion Gap 15.9 (5-19) BUN 13 (8-23) mg/dL Creatinine 0.8 (0.5-0.9) mg/dL GFR Calculation Not Reportable Glucose 108 (65-115) mg/dL Calculated Osmolal ity 281 L (285-295) mOsm/k g Calcium 9.2 (8.5-10.5) mg/dL Total Bilirubin 0.4 (0.15-1.2) mg/dL AST 22 (0-32) U/L ALT 25 (0-33) U/L Alkaline Phosphata se 99 (35-105) IU/L Troponin T Baselin e (0-10) ng/L NT-Pro-B Natriuret Pep 3418 H (0-450) pg/mL Total Protein 7.6 (6.6-8.7) g/dL Albumin 3.6 (3.5-5.2) g/dL Globulin 4.0 (1.3-4.6) g/dL Urine Color Straw (Yellow) Urine Appearance Clear (CLEAR) Urine pH 7 (5-7) Ur Specific Gravit y 1.005 (1.005-1.030) Urine Protein Neg (Negative) Urine Glucose (UA) Norm (Normal) Urine Ketones Negative (Negative) Urine Blood Neg (Negative) Urine Nitrate Negative (Negative) Urine Bilirubin Neg (Negative) Urine Urobilinogen Norm (Negative) mg/dL Ur Leukocyte Melody ase Negative (Negative) 11/26/20 Range/Units 20:36 WBC (4.0-10.0) 10^3/ uL RBC (4.1-5.3) 10^6/u L Hgb (11.5-15.3) g/dL Hct (37.0-47.0) % MCV (81-99) fL MCH (28.0-34.0) pg MCHC (30.0-36.0) g/dL RDW (12.1-15.1) % Plt Count (130-400) 10^3/c mm MPV (7.4-10.4) fL Neut % (Auto) % Lymph % (Auto) % [place] % (Auto) % Eos % (Auto) % Baso % (Auto) % Neut # (Auto) (1.8-7.7) 10^3/u L Lymph # (Auto) (0.8-4.8) 10^3/u L [place] # (Auto) (0.2-0.9) 10^3/u L Eos # (Auto) (0.0-0.8) 10^3/u L Baso # (Auto) (0.0-0.1) 10^3/u L Nucleated RBC % (a uto) % Nucleated RBCs # /100WBC Sodium (136-145) mmol/L Potassium (3.5-5.1) mmol/L Chloride (98-107) mmol/L Carbon Dioxide (22-29) mmol/L Anion Gap (5-19) BUN (8-23) mg/dL Creatinine (0.5-0.9) mg/dL GFR Calculation Glucose (65-115) mg/dL Calculated Osmolal ity (285-295) mOsm/k g Calcium (8.5-10.5) mg/dL Total Bilirubin (0.15-1.2) mg/dL AST (0-32) U/L ALT (0-33) U/L Alkaline Phosphata se (35-105) IU/L Troponin T Baselin e 15 H (0-10) ng/L NT-Pro-B Natriuret Pep (0-450) pg/mL Total Protein (6.6-8.7) g/dL Albumin (3.5-5.2) g/dL Globulin (1.3-4.6) g/dL Urine Color (Yellow) Urine Appearance (CLEAR) Urine pH (5-7) Ur Specific Gravit y (1.005-1.030) Urine Protein (Negative) Urine Glucose (UA) (Normal) Urine Ketones (Negative) Urine Blood (Negative) Urine Nitrate (Negative) Urine Bilirubin (Negative) Urine Urobilinogen (Negative) mg/dL Ur Leukocyte Melody ase (Negative) EKG Data^: EKG 1: Attestation: I personally reviewed and interpreted this EKG as follows: EKG interpretation date: 11/26/20 EKG interpretation time: 15:43 Interpretation: afib with rvr hr [address] or t wave abnormalities qrs 99 qtc 363 Other EKG comments: Chest X-Ray 11/26/20 16:27 IMPRESSION: Findings most consistent with passive interstitial edema congestive heart failure. Critical Care Time Critical Care Time: Critical Care Time: Yes Total Critical Care Time: 36 Attestation: This case had a high probability of a clinically significant, sudden, or life threatening deterioration of this patient's condition which required my full and direct attention, intervention and personal management. Discharge Plan Discharge Patient Disposition: Admitted As Inpatient Admit Provider: Xavier Ferguson Clinical Impression: Atrial fibrillation with RVR Congestive heart failure Qualifiers: Heart failure type: unspecified Heart failure chronicity: acute on chronic Qualified Code(s): I50.9 - Heart failure, unspecified Condition: Stable Coding Level of Care Code ED Supervisor Throwing Department for [facility] Fwd Exam Comprehensive
[2020-11-26 16:43] LABS: Basophils % 0.3 %; Eosinophils # 0.1 10^3/uL (0.0-0.8); Eosinophils % 1.6 %; Hematocrit 36.5 % (37.0-47.0); Hemoglobin 11.8 g/dL (11.5-15.3); Lymphocytes # 1.3 10^3/uL (0.8-4.8); Lymphocytes % 18.2 %; Mean Corpuscular HGB Conc 32.3 g/dL (30.0-36.0); Mean Corpuscular Hemoglobin 28.4 pg (28.0-34.0); Mean Corpuscular Volume 87.7 fL (81-99); Mean Platelet Volume 11.4 fL (7.4-10.4); Monocytes # 0.8 10^3/uL (0.2-0.9); Monocytes % 11.9 %; Neutrophils # 4.72 10^3/uL (1.8-7.7); Neutrophils % 67.7 %; Nucleated Red Blood Cells % 0 %; Platelet Count 361 10^3/cmm (130-400); Red Blood Count 4.16 10^6/uL (4.1-5.3); Red Cell Distribution Width 13.2 % (12.1-15.1)
[2020-11-26] MEDS: metoprolol tartrate 1 mg/1 mL SDV 5 mL 5 MG IV (16:45)
[2020-11-26] MEDS: metoprolol tartrate 50 mg Tablet PO (16:45)
[2020-11-26 17:14] LABS: Alanine Aminotransferase 25 U/L (0-33); Albumin Level 3.6 g/dL (3.5-5.2); Alkaline Phosphatase 99 IU/L (35-105); Anion Gap 15.9 (5-19); Aspartate Amino Transferase 22 U/L (0-32); Blood Urea Nitrogen 13 mg/dL (8-23); Calcium 9.2 mg/dL (8.5-10.5); Carbon Dioxide 26 mmol/L (22-29); Chloride 97 mmol/L (98-107); Glucose 108 mg/dL (65-115); NT Pro B Type Natriuretic Pept 3418 pg/mL (0-450); Osmolality Calculated 281 mOsm/kg (285-295); Potassium 3.9 mmol/L (3.5-5.1); Sodium 135 mmol/L (136-145); Total Bilirubin 0.4 mg/dL (0.15-1.2); Total Protein 7.6 g/dL (6.6-8.7)
[2020-11-26] MEDS: FUROsemide 10 mg/mL SDV 4mL 40 MG IVP (18:10)
[2020-11-26 18:20] LABS: Add Urine Microscopic? NO
[2020-11-26 18:23] LABS: Urine Appearance Clear (CLEAR); Urine Color Straw (Yellow)
[2020-11-26 18:24] LABS: Bilirubin Urine Neg (Negative); Blood Urine Neg (Negative); Glucose Urine UA Norm (Normal); Ketones Urine Negative (Negative); Leukocyte Esterase Urine Negative (Negative); Nitrate Urine Negative (Negative); Protein Urine Neg (Negative); Specific Gravity, Urine 1.005 (1.005-1.030); Urobilinogen Urine Norm (Negative); pH Urine 7 (5-7)
--- NOTE | 2020-11-26 19:11 | ECG_ITS ---
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 Measurements Intervals [place] Rate: 139 P: DE: QRS: 2 QRSD: 99 T: 124 QT: 282 QTc: 430 Interpretive Statements ATRIAL FIBRILLATION WITH RAPID VENTRICULAR RESPONSE MINIMAL VOLTAGE CRITERIA FOR LVH, CONSIDER NORMAL VARIANT [MEETS CRITERIA IN ONE OF: R(aVL), S(V1), R(V5), R(V5/V6)+S(V1)] ST DEVIATION AND MODERATE T-WAVE ABNORMALITY, CONSIDER LATERAL ISCHEMIA [-0.1+ mV T WAVE IN I/aVL/V5/V6] Compared to ECG 11/08/2020 17:46:39 Myocardial infarct finding no longer present T-wave abnormality still present Possible ischemia still present Electronically Signed On 11-26-2020 19:32:44 PROPERTY FIELD INSPECTOR by Omega Centeno M.D. [id number]
--- NOTE | 2020-11-26 20:31 | ECG_ITS ---
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1945 Requested By: Isabela Sparks Order Number: [id number] Reading MD: KIM MORGAN Measurements Intervals [place] Rate: 112 P: NM: QRS: -7 QRSD: 104 T: 55 QT: 343 QTc: 469 Interpretive Statements ATRIAL FIBRILLATION WITH RAPID VENTRICULAR RESPONSE VOLTAGE CRITERIA FOR LVH [MEETS CRITERIA IN ONE OF: R(aVL), S(V1), R(V5), R(V5/V6)+S(V1)] POSSIBLE SEPTAL MYOCARDIAL INFARCTION , OF INDETERMINATE AGE [30 ms Q WAVE IN V1/V2] Compared to ECG 11/26/2020 15:43:29 Myocardial infarct finding now present T-wave abnormality no longer present Possible ischemia no longer present Electronically Signed On 11-27-2020 19:59:03 SUPERVISOR MECHANIC BOILERMAKING by KIM MORGAN [id number]
[2020-11-26 20:57] LABS: Troponin(5th) Baseline 15 ng/L (0-10)
--- NOTE | 2020-11-26 21:31 | P.HP_ITS ---
Providers/Chief Complaint Admitting Physician: Xavier Ferguson Primary Care Provider: DI Schaefer Chief Complaint: AFIB, SENT FROM [facility] History of Present Illness Pleasant 75-year-old lady with history of atrial fibrillation, difficult to control hypertension, with recent admission to the hospital in October due to A. fib with RVR, as well as diastolic CHF, with difficult to control blood pressure, with evidence of prior lacunar CVA which were thought to explain her symptoms of dizziness. She was continued on Xarelto. She was started on losartan, metoprolol 25 mg twice daily, furosemide 20 mg, chlorthalidone 25 mg, aspirin 81 mg, atorvastatin 80 mg at bedtime. On discharge her heart rates were better, reported as 100-110s. She was referred for follow-up with cardiology. She returns to the hospital with a fast heart rate, with A. fib with RVR, she s tates that she has taken her medications, but has not taken Lasix as she says it did not agree with her causing her to urinate less. In ER she received metoprolol, 5 mg IV push, as well as 50 mg p.o. Lopressor, also received IV digoxin push 10 mg, with lack of sufficient improvement in heart rate, so was started on Cardizem drip. She also received a dose of 40 mg IV push Lasix due to noted CHF. She does state that she has been sleeping upright in bed. She also has had worsening of lower extremity swelling which she says usually comes and goes , but has been present in the last several days. She denies any palpitations currently. Denies any chest pain or pressure. She has had a little bit more difficult time breathing and has had some cough. She says her primary care doctor thought the dry cough may have been related to losartan. She denies any fever or chills, no headache, no nausea vomiting or diarrhea. She is producing some clear to whitish sputum. She denies that she has more heartburn than usual. Her son noticed that her cough is perhaps somewhat worse after eating. Review of Systems Const: Denies: fever(s), chills, body aches or malaise Eyes: Denies: change in vision or eye redness ENMT: Denies: throat pain, oral sores or ear or mastoid pain Card: Denies: chest pain, edema, pre-syncope or dyspnea on exertion Resp: Denies: dyspnea, productive cough, change in phlegm color or hemoptysis GI: Denies: abdominal pain, nausea, vomiting, diarrhea, constipation, hematochezia or melena : Denies: flank pain, urinary frequency or hematuria Musc: Denies: back pain, joint swelling or joint redness Skin/Breast: Denies: rash, sores or new lesions Neuro: Denies: headache(s), numbness in extremities, weakness in extremities, dizziness, confusion or seizure-like activity Endo: Denies: polyuria or polydipsia Heri/Lymph: Denies: easy bleeding or purpura All/Imm: Denies: urticaria, throat swelling or tongue swelling Medications/Allergies Home Medications Medication Instructions Recorded Confirmed Last Taken Type famotidine 10 mg tablet 10 - 20 mg PO DAILY@0830 01/04/20 11/26/20 11/25/20 History Xarelto 20 mg PO DAILY@11/08/20 11/26/20 11/25/20 History chlorthalidone 25 mg PO DAILY 30 Days #30 tab 11/10/20 11/26/20 Unknown Rx losartan 50 mg PO Q12H 30 Days #60 tab 11/10/20 11/26/20 11/26/20 09:00 Rx pt states dced today metoprolol tartrate 25 mg PO BID@0900,2100 30 Days #60 11/10/20 11/26/20 11/26/20 Rx tab potassium chloride [Klor-Con 10] 10 meq PO DAILY 30 Days #30 tab 11/10/20 11/26/20 Unknown Rx aspirin 81 mg PO DAILY@11/26/20 11/26/20 11/26/20 History atorvastatin 80 mg PO BEDTIME@11/26/20 11/26/20 11/25/20 History furosemide 20 mg PO DAILY@11/26/20 11/26/20 11/25/20 History verapamil 120 mg PO DAILY@11/26/20 11/26/20 11/25/20 History verapamil 180 mg PO DAILY@11/26/20 11/26/20 11/25/20 History Allergies Allergy/AdvReac Type Severity Reaction Status Date / Time Iodinated Contrast Media Allergy ALGY-Rash Verified 11/26/20 16:55 azithromycin AdvReac Unknown Verified 11/26/20 16:55 naproxen AdvReac Unknown Verified 11/26/20 16:55 PFSH Acute PFSH: Medical History (Updated 11/26/20 @ 21:37 by Xavier Ferguson MD) Acid reflux Breast cancer Elevated serum creatinine Elevated serum creatinine High risk medication use Hypertension 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 Surgical History H/O: hysterectomy History of inguinal hernia repair History of left mastectomy Family History Other Hyperlipidemia Psychiatric illness Denies family history of Rheumatoid arthritis Lupus Social History Smoking and tobacco status: never smoked Second hand smoke exposure: No Alcohol intake: never Lives independently: Yes Household members: none Current occupational status: employed Current occupation: [employer] History of recent travel: No Current gender identity: Female Vitals/I&O/Wt Last Vital Signs Pulse 109 H 11/26/20 21:03 Resp 16 11/26/20 21:03 BP 155/108 11/26/20 21:03 Pulse Ox 93 11/26/20 21:03 Weight last 48 hrs Weight 81.647 kg Physical Exam Const: COMMON NORMALS: no acute distress and patient oriented x3 HENMT: COMMON NORMALS: oropharynx normal Neck/C-Spine: COMMON NORMALS: no JVD Resp: COMMON NORMALS: normal respiratory effort and clear to auscultation bilaterally AUSCULTATION: clear to auscultation bilaterally Cardio: COMMON NORMALS: no JVD, regular rhythm, S1 normal heart sound present, S2 normal heart sound present and No murmurs present (Cardio) RHYTHM: abnormal rhythm irregularly irregular HEART SOUNDS: S1 normal heart sound present and S2 normal heart sound present GI: COMMON NORMALS: Normal to inspection, nondistended, normoactive bowel sounds present, Soft to palpation and non-tender PALPATION: Yes Soft to palpation Extremity: COMMON NORMALS: no joint enlargement GENERAL: Yes edema (1+ LE bilat) Neuro: COMMON NORMALS: patient oriented x3 and moves all extremities Skin: COMMON NORMALS: no rashes or lesions noted GENERAL SKIN EXAM: no rashes or lesions noted Data : 11/26/20 16:39 11/26/20 16:39 A&P Assessment and plan (1) Atrial fibrillation with RVR: Difficult to control atrial fibrillation. Did not respond to IV and P.o. metoprolol, Cardizem push. Noted on Cardizem drip. Denies chest pain or pressure. Check troponin EKG series. Check TSH. Magnesi um. Potassium is 3.9. Does not appear to have infection, although is coughing. No evidence of pneumonia chest x-ray. On exam lungs sound clear, although does have evidence of CHF, and so may suspect cardiac asthma. Otherwise no signs of sepsis. Denies any symptoms of COVID-19 apart from the cough. Discussed differential diagnosis with her and her son. They are agreeable at this time with treatment of atrial fibrillation with Cardizem drip, continuation of anticoagulation. We will also continue her metoprolol. Hold verapamil for now. Monitor on telemetry. Appears to have episodic hypertension which is difficult to control. Blood pressure still elevated. Would benefit from optimize control. Treat CHF. Status: Acute (2) Uncontrolled hypertension: Blood pressure elevated as high as 192/118. At this time continues on Cardizem drip. Will resume her metoprolol. She is complaining of significant cough ever since starting losartan. Discussed with her and her son, this is not a common adverse effect, but is possible. For now we will hold losartan. May consider withholding this medication on discharge. Continue chlorthalidone. Lasix. Cardiac diet. Monitor blood pressures. Status: Acute (3) Congestive heart failure: She states she has been urinating quite well after 40 mg IV Lasix push in ER. For now we will maintain this every 12 hours. Monitor I&O. Daily weight. Would benefit from optimized control of A. fib with RVR. Does not appear to have infectious trigger, but does have some cough. Assess troponin EKG series. On prior admission was referred for follow-up with cardiology with consideration of stress testing. Would keep this under consideration. Ejection fraction 51%, no diagnostic regional wall motion abnormality during echo 11/09/2020. Abnormal diastolic function noted. Pulmonary artery pressure 34 mmHg. Moderately increased left atrial size. Moderate posteriorly directed MV regurgitation. Perhaps no significant change from prior echo 05/05/2019. Status: Acute Qualifiers: Heart failure chronicity: acute on chronic Heart failure type: unspecified Qualified Code(s): I50.9 - Heart failure, unspecified (4) Cough: She has been afebrile, and has no other signs of sepsis. No pneumonia visible on chest x-ray. Lung exam sounds mostly clear. She may have some cardiac related cough with her CHF and A. fib RVR. Discussed with her and her son, difficult to exclude bronchitis as well. For now as she is saturating well, is not dyspneic at rest we will hold off on albuterol or nebulization until her heart rates are little bit better. CTA during last admission did not show PE. She has been on Xarelto since then. Suspicion for PE at this time is low. Symptomatic treatment for now. Treat CHF. Symptomatic treatment of cough bronchitis once heart rates a little better. Gerri Hart. We will get speech therapy evaluation as her son reports worsening cough after eating. Maintain aspiration precautions. She denies cough worse in the morning which could have been caused by her GERD. Status: Acute Additional A&P Information History of breast cancer Acid reflux: Continue famotidine Other chronic conditions noted Attestations Medical Necessity Statement*: Place in observation. 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
--- NOTE | 2020-11-26 22:19 | PC.NURSE ---
Dr. Ferguson notified of patient refusing Losartan that is ordered. Patient states my primary doctor says that is what is making me cough so much. Patient reports that every time she eats, about 15 minutes later, she doesn't vomit, but coughs up sputum. Patient states I don't understanding it.
[2020-11-26] MEDS: metoprolol tartrate 25 mg Tablet PO (22:24)
[2020-11-26 23:28] LABS: Troponin 5 2HR 12.06 ng/L (0-10)
[2020-11-26 23:43] LABS: Troponin 5 2HR Delta -2.94 ABS# (0-10)
[2020-11-27] VITALS (14 sets, daily range): BP systolic 116–168; BP diastolic 61–113; PULSE 85–106; RESP 18–28; TEMP 36.4–36.7; O2SAT 90–96
--- NOTE | 2020-11-27 02:31 | ECG_ITS ---
[facility] Test Date: 2020-11-27 Pat Name: Deepali Mulligan Department: Room: 112 Gender: Female Emr Analyst: ken DOMINGUEZ: 1945 Requested By: Isabela Sparks Order Number: [id number] Reading MD: KIM MORGAN Measurements Intervals [place] Rate: 88 P: [place]: QRS: -1 QRSD: 97 T: 70 QT: 382 QTc: 462 Interpretive Statements ATRIAL FIBRILLATION NONSPECIFIC ST & T-WAVE ABNORMALITY ABNORMAL RHYTHM ECG Compared to ECG 11/26/2020 20:01:26 T-wave abnormality now present Left ventricular hypertrophy no longer present Myocardial infarct finding no longer present Electronically Signed On 11-27-2020 20:01:16 MEMORIAL ADVISER by KIM MORGAN [email or web address]
[2020-11-27 04:04] LABS: Basophils % 0.5 %; Eosinophils # 0.1 10^3/uL (0.0-0.8); Eosinophils % 1.9 %; Hematocrit 36.6 % (37.0-47.0); Hemoglobin 11.6 g/dL (11.5-15.3); Lymphocytes # 1.3 10^3/uL (0.8-4.8); Lymphocytes % 21.3 %; Mean Corpuscular HGB Conc 31.7 g/dL (30.0-36.0); Mean Corpuscular Hemoglobin 27.8 pg (28.0-34.0); Mean Corpuscular Volume 87.6 fL (81-99); Mean Platelet Volume 12.1 fL (7.4-10.4); Monocytes # 0.8 10^3/uL (0.2-0.9); Monocytes % 13.5 %; Neutrophils # 3.85 10^3/uL (1.8-7.7); Neutrophils % 62.5 %; Nucleated Red Blood Cells % 0 %; Platelet Count 356 10^3/cmm (130-400); Red Blood Count 4.18 10^6/uL (4.1-5.3); Red Cell Distribution Width 13.2 % (12.1-15.1); White Blood Count 6.2 10^3/uL (4.0-10.0)
[2020-11-27] MEDS: FUROsemide 10 mg/mL SDV 4mL 40 MG IVP ×2 (04:16→17:22)
[2020-11-27 04:45] LABS: Alanine Aminotransferase 21 U/L (0-33); Albumin Level 3.4 g/dL (3.5-5.2); Alkaline Phosphatase 97 IU/L (35-105); Anion Gap 14.4 (5-19); Aspartate Amino Transferase 19 U/L (0-32); Blood Urea Nitrogen 12 mg/dL (8-23); Carbon Dioxide 30 mmol/L (22-29); Chloride 97 mmol/L (98-107); Globulin 3.9 g/dL (1.3-4.6); Glucose 93 mg/dL (65-115); Magnesium 1.8 mg/dL (1.7-2.3); Osmolality Calculated 285 mOsm/kg (285-295); Potassium 3.4 mmol/L (3.5-5.1); Sodium 138 mmol/L (136-145); Thyroid Stimulating Hormone 1.64 uIU/mL (0.27-4.20); Total Bilirubin 0.4 mg/dL (0.15-1.2); Total Protein 7.3 g/dL (6.6-8.7)
[2020-11-27 04:52] LABS: Troponin 5 6HR 10.78 ng/L (0-10)
[2020-11-27] MEDS: metoprolol tartrate 25 mg Tablet 50 MG PO ×2 (08:04→21:41)
[2020-11-27] MEDS: famotidine 20 mg Tablet 10 MG PO (08:05)
[2020-11-27] MEDS: dilTIAZem 60 mg Tablet PO ×3 (08:05→21:40)
[2020-11-27] MEDS: aspirin 81 mg EC Tablet PO (08:05)
[2020-11-27] MEDS: chlorthalidone 25 mg Tablet PO (08:05)
--- NOTE | 2020-11-27 09:02 | PC.NURSE ---
UPON ASSESSING THE PATIENT, IT WAS NOTED THAT THE PATIENT RIGHT AC IV HAD INFILTRATED AND WAS TENDER TO THE TOUCH. DR. MYRICK WAS PRESENT DURING THIS TIME. ORDERED THE IV CARDIZEM TO BE PLACED ON HOLD, GIVE METOPROLOL AND ADD PO CARDIZEM 60 MG Q6H. PATIENT HEART RATE HAS BEEN UNDER CONTROL IN THE 70'S-80'S SINCE THIS TIME.
--- NOTE | 2020-11-27 09:18 | PC.CHAP ---
Pastoral Care Encounter/Spiritual Assessment Type of Contact [] Declined field administrator visit [] Patient/Family/Request visit [] Outpatient visit [] Follow-up visit [] Physician referral [] Code/Alert [] Routine visit [] Staff referral [] Actively dying [x] Patient sleeping [] Family support [] [] Out of room [] Palliative care [] [] Receiving care in room [] Pre-surgical visit [] Trauma [] Long length of stay [] ICU visit [] Other: Relational/Emotional Strength [] Patient feels connected with others/family/visitors/staff [] Distress [] Loneliness/isolation [] Abandonment Spirituality of Patient [] Person of Tiff [] Attends Nondenominational of their Tiff [] Believes in Prayer [] Reads Bible or Congregational materials [] There are Spiritual issues to be addressed [employer] Interventions [x] Prayer [] Active listening [] Non-anxious presence [] Spiritual/emotional support [] Crisis/trauma care [] Spiritual counseling [] Bereavement support [] Provided bereavement packet [] Provided Bible/devotional materials [] Provided toy/stuffed animal, coloring book to patient or family member [] Provided Communion [] Anointing/[place] [] Salvation [x] Completed spiritual assessment [] Other: Impact on Illness or Injury [] Angry [] Fearful [] Anxious [] Often cries [] Exhaustion [] Unable to work [] Unable to attend anabaptism [] Unable to walk/stand [] Unable to read [] Unable to drive [] Unable to eat/drink [] Unable to sleep [] Unable to be with family [] Patient intubated [] Other: Summary Time spent with patient
--- NOTE | 2020-11-27 12:08 | PM.PN ---
Subjective Subjective: Interval history: Patient tells me that this morning she just has been feeling well, no fevers, no chills, no nausea, no vomiting, does complain of shortness of breath, no chest pain, no palpitations, she did present to her primary care physician's office who found her in A. fib with RVR, no bilateral from edema, does have orthopnea, does have paroxysmal nocturnal dyspnea Vitals/I&O/Wt Last Vital Signs Temp 98.1 F 11/27/20 11:36 Pulse 85 11/27/20 11:36 Resp 23 H 11/27/20 11:36 BP 138/78 11/27/20 11:36 Pulse Ox 90 11/27/20 11:36 11/26/20 11/27/20 11/27/20 22:59 06:59 14:59 Intake Total 100 / 100 303.75 / 403.75 292.25 / 292.25 Balance 100 / 100 303.75 / 403.75 292.25 / 292.25 Weight last 48 hrs Weight 81.647 kg Weight 81.647 kg Physical Exam Const: COMMON NORMALS: no acute distress and patient oriented x3 HENMT: COMMON NORMALS: normocephalic HEAD & SCALP: normocephalic Neck/C-Spine: COMMON NORMALS: no JVD Resp: COMMON NORMALS: normal respiratory effort, No retractions and No use of accessory muscles AUSCULTATION: crackles Cardio: COMMON NORMALS: no JVD, regular rate, S1 normal heart sound present and S2 normal heart sound present RATE: regular rate RHYTHM: abnormal rhythm HEART SOUNDS: S1 normal heart sound present and S2 normal heart sound present GI: COMMON NORMALS: Normal to inspection, nondistended, normoactive bowel sounds present, Soft to palpation, non-tender, No hepatosplenomegaly present, no masses and no bruits PALPATION: Yes Soft to palpation and Yes No hepatosplenomegaly present Extremity: COMMON NORMALS: capillary refill normal, no clubbing, cyanosis or edema, no calf tenderness and no pedal edema Neuro: COMMON NORMALS: patient oriented x3 Psych: COMMON NORMALS: mental status grossly normal Data : 11/27/20 02:46 11/27/20 02:46 A&P Assessment and plan (1) Atrial fibrillation with RVR: Difficult to control atrial fibrillation. Off Cardizem drip Continue p.o. Cardizem 60 every 6 hours Metoprolol 50 twice daily Continue to monitor telemetry Continue Xarelto Xarelto for DVT prophylaxis Status: Acute (2) Uncontrolled hypertension: Holding losartan Continue chlorthalidone. Lasix. Continue Metroprolol 50 twice daily Continue Cardizem Cardiac diet. Monitor blood pressures. Status: Acute (3) Congestive heart failure: She states she has been urinating quite well after 40 mg IV Lasix push in ER. For now we will maintain this every 12 hours. Monitor I&O. Daily weight. Would benefit from optimized control of A. fib with RVR. Does not appear to have infectious trigger, but does have some cough. Assess troponin EKG series. On prior admission was referred for follow-up with cardiology with consideration of stress testing. Would keep this under consideration. Ejection fraction 51%, no diagnostic regional wall motion abnormality during echo 11/09/2020. Abnormal diastolic function noted. Pulmonary artery pressure 34 mmHg. Moderately increased left atrial size. Moderate posteriorly directed MV regurgitation. Perhaps no significant change from prior echo 05/05/2019. Status: Acute Qualifiers: Heart failure chronicity: acute on chronic Heart failure type: unspecified Qualified Code(s): I50.9 - Heart failure, unspecified (4) Cough: She has been afebrile, and has no other signs of sepsis. No pneumonia visible on chest x-ray. Lung exam sounds mostly clear. She may have some cardiac related cough with her CHF and A. fib RVR. Discussed with her and her son, difficult to exclude bronchitis as well. For now as she is saturating well, is not dyspneic at rest we will hold off on albuterol or nebulization until her heart rates are little bit better. CTA during last admission did not show PE. She has been on Xarelto since then. Suspicion for PE at this time is low. Symptomatic treatment for now. Treat CHF. Symptomatic treatment of cough bronchitis once heart rates a little better. Gerri Hart. We will get speech therapy evaluation as her son reports worsening cough after eating. Maintain aspiration precautions. She denies cough worse in the morning which could have been caused by her GERD. Status: Acute Additional A&P Information History of breast cancer Acid reflux: Continue famotidine Other chronic conditions noted Plan for today, continue diuresis, optimize heart rate, currently for monitor Attestations Medical Necessity Statement*: Patient requires hospitalization with A. 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
[2020-11-27] MEDS: cloNIDine 0.1 mg Tablet PO ×2 (12:57→17:22)
[2020-11-27] MEDS: rivaroxaban 10 mg Tablet 20 MG PO (12:57)
[2020-11-27] MEDS: atorvastatin 40 mg Tablet 80 MG PO (21:40)
[2020-11-28] VITALS (8 sets, daily range): BP systolic 111–133; BP diastolic 76–84; PULSE 92–114; RESP 16–91; TEMP 36.3–36.7; O2SAT 90–98
--- NOTE | 2020-11-28 01:12 | PC.NURSE ---
PT IS RESTING IN BED. PT DENIES PAIN AT THIS TIME. PT WANTS THE HEAT TURNED UP. THIS NURSE DID THAT. PT IS STILL IN A-FIB. WILL CONTINUE TO MONITOR.
[2020-11-28] MEDS: dilTIAZem 60 mg Tablet PO ×3 (01:15→14:11)
[2020-11-28 04:25] LABS: Basophils % 0.5 %; Eosinophils # 0.2 10^3/uL (0.0-0.8); Eosinophils % 2.6 %; Hematocrit 37.1 % (37.0-47.0); Hemoglobin 11.7 g/dL (11.5-15.3); Lymphocytes # 1.3 10^3/uL (0.8-4.8); Lymphocytes % 19.6 %; Mean Corpuscular HGB Conc 31.5 g/dL (30.0-36.0); Mean Corpuscular Hemoglobin 27.9 pg (28.0-34.0); Mean Corpuscular Volume 88.5 fL (81-99); Mean Platelet Volume 12.2 fL (7.4-10.4); Monocytes # 0.9 10^3/uL (0.2-0.9); Neutrophils # 4.17 10^3/uL (1.8-7.7); Nucleated Red Blood Cells % 0 %; Platelet Count 340 10^3/cmm (130-400); Red Blood Count 4.19 10^6/uL (4.1-5.3); Red Cell Distribution Width 13.3 % (12.1-15.1); White Blood Count 6.6 10^3/uL (4.0-10.0)
[2020-11-28 04:58] LABS: Magnesium 1.9 mg/dL (1.7-2.3); Phosphorus 3.8 mg/dL (2.5-4.5)
[2020-11-28 05:10] LABS: NT Pro B Type Natriuretic Pept 2511 pg/mL (0-450)
[2020-11-28 05:11] LABS: Alanine Aminotransferase 18 U/L (0-33); Albumin Level 3.2 g/dL (3.5-5.2); Alkaline Phosphatase 92 IU/L (35-105); Anion Gap 13.3 (5-19); Aspartate Amino Transferase 18 U/L (0-32); Blood Urea Nitrogen 20 mg/dL (8-23); Calcium 8.7 mg/dL (8.5-10.5); Carbon Dioxide 33 mmol/L (22-29); Chloride 94 mmol/L (98-107); Globulin 3.8 g/dL (1.3-4.6); Glucose 101 mg/dL (65-115); Osmolality Calculated 287 mOsm/kg (285-295); Potassium 3.3 mmol/L (3.5-5.1); Sodium 137 mmol/L (136-145); Total Bilirubin 0.4 mg/dL (0.15-1.2)
[2020-11-28] MEDS: FUROsemide 10 mg/mL SDV 4mL 40 MG IVP (06:38)
[2020-11-28] MEDS: potassium chloride ER 20 mEq Tablet PO (06:45)
--- NOTE | 2020-11-28 07:00 | XR_ITS ---
WS: [id number] PORTABLE CHEST HISTORY: sob COMPARISON: 11/26/2020 Lungs are clear and well expanded. No pleural effusion or pneumothorax. Cardiac size: Mildly enlarged cardiac silhouette. Mediastinum/Aorta: Mild atherosclerosis aorta. No osseous abnormality seen. Multiple surgical sutures in the LEFT axilla from prior an dissection. XR/XR chest 1V portable [id number] IMPRESSION: Unremarkable portable chest.
--- NOTE | 2020-11-28 07:25 | PC.NURSE ---
patient resting in bed. assessment performed and chart. call light within reach, no other needs identified at this time.
[2020-11-28] MEDS: famotidine 20 mg Tablet 10 MG PO (09:28)
[2020-11-28] MEDS: cloNIDine 0.1 mg Tablet PO (09:28)
[2020-11-28] MEDS: metoprolol tartrate 25 mg Tablet 50 MG PO (09:28)
[2020-11-28] MEDS: aspirin 81 mg EC Tablet PO (09:28)
[2020-11-28] MEDS: chlorthalidone 25 mg Tablet PO (09:32)
--- NOTE | 2020-11-28 10:07 | PM.DCS ---
Discharge Providers Date of Admission: 11/26/20 21:58 Date of Discharge: November 28, 2020 Attending Provider at Admission: Xavier Ferguson Attending Provider at Discharge: Harley Livingston MD Primary Care Provider: DI Schaefer Diagnoses at Discharge Discharge Diagnosis (1) Atrial fibrillation with RVR: Status: Acute (2) Uncontrolled hypertension: Status: Acute (3) Congestive heart failure: Status: Acute Qualifiers: Heart failure chronicity: acute on chronic Heart failure type: unspecified Qualified Code(s): I50.9 - Heart failure, unspecified (4) Cough: Status: Acute Reason for Visit Reason for Visit: AFIB, SENT FROM [facility] Hospital Course This is a 75-year-old female with a past medical history of atrial fibrillation, uncontrolled hypertension, diastolic heart failure, history of lacunar CVA, currently on Xarelto, who presents [facility] due to shortness of breath and fast heart rate and elevated blood pressures Patient was admitted to [facility] cardiac stepdown unit For her atrial fibrillation with rapid ventricular response, she only briefly required a cardizem drip, she was well controlled with metoprolol 50 twice daily, her Cardizem p.o. was upward titrated to 180 mg every 12 hours, she clinically did well, heart rates were less than 100, she continued to be in atrial fibrillation, will have patient follow-up with cardiology as outpatient. I have discharged on metoprolol 50 twice daily, Cardizem 180 every 12 hours, Xarelto, with close follow-up with her primary care provider and follow-up with cardiology. For patient's uncontrolled hypertension, her losartan was stopped due to concerns for chronic cough, clonidine 0.1 twice daily was added, with blood pressure medications changes as above, her blood pressures remained reasonable, she was ambulating without significant symptomatology, no lightheadedness, no dizziness. She was advised to check her blood pressure twice daily, if her blood pressure is less than 100/60 stop the clonidine, but if her blood pressures continue to creep up greater than 150/90 follow-up with primary care. Patient also had a diastolic CHF exacerbation during her hospital admission, requiring inpatient IV diuretic therapy, she clinically improved, symptomatology improved, evidence of fluid overload improved. I will discharge her on Lasix 20 twice daily, with potassium replacement. Patient was advised that if she were to gain more than 2 to 3 pounds in a 1 to 2-day. To take an extra 20 mg of Lasix. Follow-up with primary care provider in 1 week for recheck CMP. Physical Exam Const: COMMON NORMALS: no acute distress and patient oriented x3 HENMT: COMMON NORMALS: normocephalic HEAD & SCALP: normocephalic Neck/C-Spine: COMMON NORMALS: no JVD Resp: COMMON NORMALS: normal respiratory effort, No retractions, No use of accessory muscles and clear to auscultation bilaterally AUSCULTATION: clear to auscultation bilaterally Cardio: COMMON NORMALS: no JVD, regular rate, regular rhythm, S1 normal heart sound present and S2 normal heart sound present RATE: regular rate RHYTHM: regular rhythm HEART SOUNDS: S1 normal heart sound present and S2 normal heart sound present GI: COMMON NORMALS: Normal to inspection, nondistended, normoactive bowel sounds present, Soft to palpation, non-tender, No hepatosplenomegaly present, no masses and no bruits PALPATION: Yes Soft to palpation and Yes No hepatosplenomegaly present Extremity: COMMON NORMALS: capillary refill normal, no clubbing, cyanosis or edema, no calf tenderness and no pedal edema Neuro: COMMON NORMALS: patient oriented x3 Psych: COMMON NORMALS: mental status grossly normal Discharge Data Data Completed and Pending: Completed Studies During Hospitalization Category Date Time Status XR chest 1V betty ble [id number] Routine Exams 11/28/20 07:00 Completed XR chest 1V betty ble [id number] Stat Exams 11/26/20 16:27 Completed Pending at discharge Category Date Time Status Complete Blood Co unt w/Auto AM LABS Lab 11/29/20 04:00 Ordered Comprehensive Met abolic Panel AM LA BS Lab 11/29/20 04:[address] [facility] Lab 11/28/20 08:03 Received Magnesium AM LABS Lab 11/29/20 04:00 Ordered Magnesium AM LABS Lab 11/30/20 04:00 Ordered NT Pro B Type Katherine riuretic Pept QAM Lab 11/29/20 06:00 Ordered NT Pro B Type Katherine riuretic Pept QAM Lab 11/30/20 06:00 Ordered Phosphorus AM LAB S Lab 11/29/20 04:00 Ordered Phosphorus AM LAB S Lab 11/30/20 04:00 Ordered Labs from last 24 hours 11/28/20 11/28/20 11/28/20 08:03 03:02 03:02 WBC RBC Hgb Hct MCV MCH MCHC RDW Plt Count MPV Neut % (Auto) Lymph % (Auto) [place] % (Auto) Eos % (Auto) Baso % (Auto) Neut # (Auto) Lymph # (Auto) [place] # (Auto) Eos # (Auto) Baso # (Auto) Nucleated RBC % (a uto) Nucleated RBCs # Sodium Potassium Chloride Carbon Dioxide Anion Gap BUN Creatinine GFR Calculation Glucose Calculated Osmolal ity Calcium Phosphorus 3.8 Magnesium 1.9 Total Bilirubin AST ALT Alkaline Phosphata se NT-Pro-B Natriuret Pep 2511 H Total Protein Albumin Globulin Nasal/Oral COVID-1 9 PCR Pending 11/28/20 11/28/20 03:02 03:02 WBC 6.6 RBC 4.19 Hgb 11.7 Hct 37.1 MCV 88.5 MCH 27.9 L MCHC 31.5 RDW 13.3 Plt Count 340 MPV 12.2 H Neut % (Auto) 63.0 Lymph % (Auto) 19.6 [place] % (Auto) 14.0 Eos % (Auto) 2.6 Baso % (Auto) 0.5 Neut # (Auto) 4.17 Lymph # (Auto) 1.3 [place] # (Auto) 0.9 Eos # (Auto) 0.2 Baso # (Auto) 0.0 Nucleated RBC % (a uto) 0 Nucleated RBCs # 0.0 Sodium 137 Potassium 3.3 L Chloride 94 L Carbon Dioxide 33 H Anion Gap 13.3 BUN 20 Creatinine 1.2 H GFR Calculation Not Reportable Glucose 101 Calculated Osmolal ity 287 Calcium 8.7 Phosphorus Magnesium Total Bilirubin 0.4 AST 18 ALT 18 Alkaline Phosphata se 92 NT-Pro-B Natriuret Pep Total Protein 7.0 Albumin 3.2 L Globulin 3.8 Nasal/Oral COVID-1 9 PCR Vitals: Last Vital Signs Temp 97.4 F L 11/28/20 08:00 Pulse 114 H 11/28/20 08:00 Resp 16 11/28/20 08:00 BP 118/80 11/28/20 09:28 Pulse Ox 94 11/28/20 08:00 Discharge Plan Discharge Patient Disposition: Home Condition: Stable Prescriptions: New clonidine HCl 0.1 mg Tablet 0.1 mg PO BID 30 Days Qty: 60 RF: 0 metoprolol tartrate 25 mg Tablet 50 mg PO BID@0900,2100 30 Days Qty: 60 RF: 0 diltiazem HCl 180 mg capsule,extended release 24hr 180 mg PO Q12H 30 Days Qty: 60 RF: 0 Continued famotidine 10 mg tablet 10 - 20 mg PO DAILY@0830 RF: 0 Xarelto 20 mg tablet 20 mg PO DAILY@12 RF: 0 chlorthalidone 25 mg tablet 25 mg PO DAILY 30 Days Qty: 30 RF: 0 atorvastatin 40 mg tablet 80 mg PO BEDTIME@21 RF: 0 aspirin 81 mg tablet,delayed release (DR/EC) 81 mg PO DAILY@09 RF: 0 Changed furosemide 20 mg tablet 20 mg PO Q12H 30 Days Qty: 60 RF: 0 potassium chloride [Klor-Con 10] 10 mEq tablet extended release 20 meq PO DAILY 30 Days Qty: 30 RF: 0 Discontinued losartan 50 mg Tablet 50 mg PO Q12H 30 Days Qty: 60 RF: 0 metoprolol tartrate 25 mg Tablet 25 mg PO BID@0900,2100 30 Days Qty: 60 RF: 0 verapamil 120 mg tablet extended release 120 mg PO DAILY@12 RF: 0 verapamil 180 mg tablet extended release 180 mg PO DAILY@12 RF: 0 Discharge Orders: Discharge Order (Routine); Ordered 11/28/20 Ordered By: Harley Livingston Referrals: Patricia Silverio FNP [Primary Care Provider] - Discharge Diet: Cardiac Discharge Activity: Resume usual activity Activity Restrictions/Additional Instructions: -Please continue to check your weight daily, if you gain more than 2 to 3 pounds take an extra 20 mg of Lasix -Monitor heart rate, if heart rates are greater than 120 come back to the emergency room -If you feel lightheaded or dizzy please come back to the emergency room -Please follow-up with primary care provider provider for weakness -your Covid test is pending, please continue to socially isolate, hand wash, face mask monitor for fevers, monitor for symptomatology - Discharge Attestations Time Spent in Discharge Care*: less than 30 min Quality Metrics Clinical Quality Measures During this hospital stay, did patient experience: None Coding Level of Care Code Acute Playground Aide for Jolene Fwd Diagnoses Atrial fibrillation with RVR I48.91 Uncontrolled hypertension I10 Congestive heart failure I50.9 Heart failure chronicity: acute on chronic Heart failure type: unspecified Cough R05
[2020-11-28] MEDS: rivaroxaban 10 mg Tablet 20 MG PO (12:06)
--- NOTE | 2020-11-28 15:45 | PC.NURSE ---
discharge instructions given to patient and son. verbalized an understanding. iv removed, tip intact, patient tolerated well.
[2020-11-29 22:17] LABS: Coronavirus Test Green County Not Detected
== END 2020-11-28 15:32 | disposition home or self-care (01) ==
LOC: ER 20:18 → CSU 11-27 07:47
PROVIDERS: Family Medicine; Admitting Provider Internal Medicine; Emergency Provider Emergency Medicine; PCP Nurse Practitioner Family; Visit Provider Family Medicine
DX: I48.91 Unspecified atrial fibrillation (principal); I11.0 Hypertensive heart disease with heart failure; I50.33 Acute on chronic diastolic (congestive) heart failure; R05 Cough; Z79.01 Long term (current) use of anticoagulants; Z85.3 Personal history of malignant neoplasm of breast; K21.9 Gastro-esophageal reflux disease without esophagitis; Z79.82 Long term (current) use of aspirin; Z79.899 Other long term (current) drug therapy
CPT/HCPCS: 12345; 36415; 71045; 80053; 81003; 83735; 83880; 84100; 84443; 84484; 85025; 87635; 92610; 93005; 96365; 96366; 96375; 99283; 99291; G0378; J1940; J3490

== ENCOUNTER → 2020-12-03 16:48 | Outpatient (BNVA) | payer MEDICARE, SELFPAY | PROVIDERS: PCP Nurse Practitioner Family; Visit Provider Family Medicine | DX: I48.91 Unspecified atrial fibrillation (principal); Z09 Encounter for follow-up examination after completed treatment for conditions other than malignant neoplasm; I50.9 Heart failure, unspecified; I11.0 Hypertensive heart disease with heart failure | CPT/HCPCS: 80053 ==

== ENCOUNTER 2020-12-22 14:41 | Inpatient (IN) | payer MEDICARE, SELFPAY ==
[2020-12-22] VITALS (42 sets, daily range): BP systolic 116–157; BP diastolic 67–97; PULSE 72–115; RESP 12–42; TEMP 36.6; O2SAT 92–98; BMI 28.3
--- NOTE | 2020-12-22 15:05 | XRR_ITS ---
PROCEDURE INFORMATION: Exam: XR Chest, 1 View Exam date and time: 12/22/2020 3:07 PM Age: 75 years old Clinical indication: Dyspnea TECHNIQUE: Imaging protocol: XR of the chest Views: 1 view. COMPARISON: CR XR chest 1V portable [id number] 11/28/2020 7:06 AM FINDINGS: Lungs: Mild emphysematous changes of the lungs. No focal lung opacities. Pleural spaces: Unremarkable. No pleural effusion. No pneumothorax. Heart/Mediastinum: Mild cardiac enlargement. Vasculature: Mild atherosclerosis of aortic arch. Bones/joints: Demineralized bones. Soft tissues: Surgical clips within left axilla. XR/XR chest 1V portable [id number] IMPRESSION: 1. No acute pulmonary disease identified. 2. No significant change from comparison 11/28/2020.
--- NOTE | 2020-12-22 15:05 | ECG_ITS ---
[facility] Test Date: 2020-12-22 Pat Name: Deepali Mulligan Department: Room: Gender: Female Coke Drawer Hand: YUDI PADILLAB: 1945 Requested By: Marc Perez Order Number: [id number] Cesar MD: Omega Centeno M.D. Measurements Intervals [place] Rate: 110 P: CO: QRS: -9 QRSD: 104 T: 145 QT: 336 QTc: 455 Interpretive Statements ATRIAL FIBRILLATION WITH RAPID VENTRICULAR RESPONSE VOLTAGE CRITERIA FOR LVH [MEETS CRITERIA IN ONE OF: R(aVL), S(V1), R(V5), R(V5/V6)+S(V1)] Compared to ECG 11/27/2020 02:40:43 Left ventricular hypertrophy now present T-wave abnormality still present Electronically Signed On 12-22-2020 16:17:48 SIGN LANGUAGE TEACHER by Omega Centeno M.D. [email or web address]
--- NOTE | 2020-12-22 15:25 | W.ED.CHESTPA ---
HPI - Chest Pain General: Chief Complaint: Arrhythmia/Palpitations Stated Complaint: SOB, slight chest pain Time Seen by Provider: 12/22/20 15:05 History of Present Illness: HPI narrative: The patient is a 75-year-old female with past medical history of atrial fibrillation and CHF who comes to the ER complaining of shortness of breath for the past day. She says today it is worse and she has felt palpitations. She does not routinely feel it beating fast but she put on a pulse oximeter at home and she says her heart rate is all over the place. She has been admitted multiple times recently for the same thing. She says she is taking her medications at home. Prior episodes: Yes Onset: during rest and during exertion Pain location: substernal Quality: tightness Associated symptoms: Reports dyspnea and palpitations; Deny abdominal pain, fever(s), nausea or vomiting Review of Systems General: Reports: 10 or more systems reviewed and unremarkable except in HPI and below Const: Denies: fever(s) Eyes: Denies: change in vision, blurry vision or eye redness ENMT: Denies: throat pain, swelling of lips/tongue, ear or mastoid pain or nasal congestion Card: Reports: palpitations; Denies: chest pain, irregular heart rhythm, edema, dyspnea on exertion or orthopnea Resp: Reports: dyspnea GI: Denies: abdominal pain, nausea or vomiting : Denies: flank pain, difficulty voiding, urinary frequency or urinary urgency Musc: Denies: neck pain, back pain, extremity pain, joint pain, joint redness, limited range of motion or muscle weakness Skin/Breast: Denies: rash, pruritus, erythema, skin pain or skin tenderness Neuro: Denies: headache(s), numbness in extremities, weakness in extremities, sensory changes, difficulty walking, dizziness, confusion or Slurred speech present Psych: Denies: anxiety or depression Endo: Denies: polyuria All/Imm: Denies: urticaria, throat swelling or tongue swelling PFSH ED PFSH: Medical History (Updated 12/13/20 @ 17:03 by Jody Solis MD) Acid reflux Breast cancer CHF (congestive heart failure), NYHA class III Elevated serum creatinine Elevated serum creatinine High risk medication use Hypertension Other custodial (current) 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 Surgical History H/O: hysterectomy History of inguinal hernia repair History of left mastectomy Family History Other Hyperlipidemia Psychiatric illness Denies family history of Rheumatoid arthritis Lupus Social History Smoking and tobacco status: never smoked Second hand smoke exposure: No Alcohol intake: never Lives independently: Yes Household members: none Current occupational status: employed Current occupation: [employer] History of recent travel: No Current gender identity: Female Physical Exam Const: COMMON NORMALS: no acute distress, average body habitus, patient oriented x3, no limitations, healthy appearing, alert and well nourished GENERAL APPEARANCE: cooperative, comfortable, well kempt and well developed ORIENTATION/CONSCIOUSNESS: Yes awake, Yes oriented to person, Yes oriented to place and Yes oriented to time HENMT: COMMON NORMALS: normocephalic, external ears normal and Normal external nose present HEAD & SCALP: normal to inspection and normocephalic NOSE: Normal external nose present EXTERNAL EAR: Yes external ears normal MOUTH: Normal oral and palatal mucosa present THROAT: posterior oropharynx normal Eye: COMMON NORMALS: Equal, round and reactive pupils present and EOMs intact bilaterally GENERAL EYE: appearance normal, both eyes and all related structures PUPIL: Yes Equal, round and reactive pupils present Neck/C-Spine: COMMON NORMALS: full ROM, no lymphadenopathy, no meningeal signs and no JVD GENERAL: Yes normal visual inspection Lymph: LYMPHATIC: no lymphadenopathy noted Chest: COMMONS NORMALS: normal inspection of the chest and normal palpation of entire chest wall Resp: COMMON NORMALS: normal respiratory effort, No retractions, No use of accessory muscles, clear to auscultation bilaterally and percussion normal EFFORT & INSPECTION: Yes able to speak in complete sentences AUSCULTATION: clear to auscultation bilaterally PERCUSSION: percussion normal Cardio: COMMON NORMALS: no JVD, S1 normal heart sound present, S2 normal heart sound present and Peripheral pulses 2+ throughout RHYTHM: abnormal rhythm (Atrial fibrillation with RVR) irregularly irregular HEART SOUNDS: S1 normal heart sound present and S2 normal heart sound present PERIPHERAL PULSES: Peripheral pulses 2+ throughout GI: COMMON NORMALS: Normal to inspection, nondistended, normoactive bowel sounds present, Soft to palpation, non-tender and no masses INSPECTION: Yes normal to inspection PALPATION: Yes Soft to palpation : COMMON NORMALS: Yes no CVA tenderness BLADDER/KIDNEY EXAM: Yes no CVA tenderness Back/Pelvis: COMMON NORMALS: no CVA tenderness, thoracic and lumbar spine normal to inspection, no thoracic nor lumbar tenderness and thoraco-lumbar ROM normal Extremity: COMMON NORMALS: normal to inspection, full ROM, capillary refill normal, no joint enlargement and no pedal edema GENERAL: Yes normal exam except as noted Neuro: COMMON NORMALS: patient oriented x3, CN's II-XII intact bilaterally, moves all extremities, no focal motor deficits, no sensory deficits noted and gait normal SENSORIUM/ORIENTATION: Yes alert, Yes oriented to person, Yes oriented to place and Yes oriented to time MENINGEAL SIGNS: Yes no meningeal signs Psych: COMMON NORMALS: mental status grossly normal, Normal thought process present, cooperative, normal affect and speech normal APPEARANCE: Yes well kempt ATTITUDE: Yes calm SPEECH: Yes normal speech THOUGHT PROCESS: Normal thought process present Skin: COMMON NORMALS: no rashes or lesions noted GENERAL SKIN EXAM: no rashes or lesions noted Course Vital Signs: Vital signs: Vital Signs Temperature 97.9 F 12/22/20 14:54 Pulse Rate 104 H 12/22/20 18:00 Respiratory Rate 17 12/22/20 18:00 Blood Pressure 152/84 12/22/20 18:00 Pulse Oximetry 92 12/22/20 18:00 MDM - Chest Pain MDM Narrative: Medical decision making narrative: Patient comes to the ER in A. fib with RVR. She was given IV bolus Cardizem with mild reduction of her heart rate from 140s to 110s. Drip was started as well and she was admitted to the cardiac stepdown unit. accepts her care. Also she has hypokalemia and was supplemented in the ER. Lab Data: Labs: Lab Results 12/22/20 12/22/20 12/22/20 Range/Units 15:28 15:28 15:28 WBC 6.3 (4.0-10.0) 10^3/ uL RBC 4.74 (4.1-5.3) 10^6/u L Hgb 13.1 (11.5-15.3) g/dL Hct 41.0 (37.0-47.0) % MCV 86.5 (81-99) fL MCH 27.6 L (28.0-34.0) pg MCHC 32.0 (30.0-36.0) g/dL RDW 14.0 (12.1-15.1) % Plt Count 257 (130-400) 10^3/c mm MPV 12.1 H (7.4-10.4) fL Neut % (Auto) 67.3 % Lymph % (Auto) 21.0 % [place] % (Auto) 9.9 % Eos % (Auto) 1.3 % Baso % (Auto) 0.3 % Neut # (Auto) 4.27 (1.8-7.7) 10^3/u L Lymph # (Auto) 1.3 (0.8-4.8) 10^3/u L [place] # (Auto) 0.6 (0.2-0.9) 10^3/u L Eos # (Auto) 0.1 (0.0-0.8) 10^3/u L Baso # (Auto) 0.0 (0.0-0.1) 10^3/u L Nucleated RBC % (a uto) 0 % Nucleated RBCs # 0.0 /100WBC Sodium 137 (136-145) mmol/L Potassium 2.8 L* (3.5-5.1) mmol/L Chloride 93 L (98-107) mmol/L Carbon Dioxide 29 (22-29) mmol/L Anion Gap 17.8 (5-19) BUN 26 H (8-23) mg/dL Creatinine 1.3 H (0.5-0.9) mg/dL GFR Calculation Not Reportable Glucose 113 (65-115) mg/dL Calculated Osmolal ity 290 (285-295) mOsm/k g Calcium 9.3 (8.5-10.5) mg/dL Total Bilirubin 0.7 (0.15-1.2) mg/dL AST 20 (0-32) U/L ALT 19 (0-33) U/L Alkaline Phosphata se 108 H (35-105) IU/L Troponin T Baselin e 15 H (0-10) ng/L Delta Troponin T (0-10) ABS# NT-Pro-B Natriuret Pep 2386 H (0-450) pg/mL Total Protein 7.6 (6.6-8.7) g/dL Albumin 4.1 (3.5-5.2) g/dL Globulin 3.5 (1.3-4.6) g/dL Urine Color (Yellow) Urine Appearance (CLEAR) Urine pH (5-7) Ur Specific Gravit y (1.005-1.030) Urine Protein (Negative) Urine Glucose (UA) (Normal) Urine Ketones (Negative) Urine Blood (Negative) Urine Nitrate (Negative) Urine Bilirubin (Negative) Urine Urobilinogen (Negative) mg/dL Ur Leukocyte Melody ase (Negative) 12/22/20 12/22/20 Range/Units 16:38 17:23 WBC (4.0-10.0) 10^3/ uL RBC (4.1-5.3) 10^6/u L Hgb (11.5-15.3) g/dL Hct (37.0-47.0) % MCV (81-99) fL MCH (28.0-34.0) pg MCHC (30.0-36.0) g/dL RDW (12.1-15.1) % Plt Count (130-400) 10^3/c mm MPV (7.4-10.4) fL Neut % (Auto) % Lymph % (Auto) % [place] % (Auto) % Eos % (Auto) % Baso % (Auto) % Neut # (Auto) (1.8-7.7) 10^3/u L Lymph # (Auto) (0.8-4.8) 10^3/u L [place] # (Auto) (0.2-0.9) 10^3/u L Eos # (Auto) (0.0-0.8) 10^3/u L Baso # (Auto) (0.0-0.1) 10^3/u L Nucleated RBC % (a uto) % Nucleated RBCs # /100WBC Sodium (136-145) mmol/L Potassium (3.5-5.1) mmol/L Chloride (98-107) mmol/L Carbon Dioxide (22-29) mmol/L Anion Gap (5-19) BUN (8-23) mg/dL Creatinine (0.5-0.9) mg/dL GFR Calculation Glucose (65-115) mg/dL Calculated Osmolal ity (285-295) mOsm/k g Calcium (8.5-10.5) mg/dL Total Bilirubin (0.15-1.2) mg/dL AST (0-32) U/L ALT (0-33) U/L Alkaline Phosphata se (35-105) IU/L Troponin T Baselin e (0-10) ng/L Delta Troponin T 0.16 (0-10) ABS# NT-Pro-B Natriuret Pep (0-450) pg/mL Total Protein (6.6-8.7) g/dL Albumin (3.5-5.2) g/dL Globulin (1.3-4.6) g/dL Urine Color Yellow (Yellow) Urine Appearance Clear (CLEAR) Urine pH 5 (5-7) Ur Specific Gravit y 1.005 (1.005-1.030) Urine Protein Neg (Negative) Urine Glucose (UA) Norm (Normal) Urine Ketones Negative (Negative) Urine Blood Neg (Negative) Urine Nitrate Negative (Negative) Urine Bilirubin Neg (Negative) Urine Urobilinogen Norm (Negative) mg/dL Ur Leukocyte Melody ase Negative (Negative) Discharge Plan Discharge Patient Disposition: Admitted As Inpatient Admit Provider: Francisco Minor Condition: Stable Coding Level of Care Code ED Certified Forklift Operator for Chg Fwd Exam Comprehensive
[2020-12-22 15:37] LABS: Basophils % 0.3 %; Eosinophils # 0.1 10^3/uL (0.0-0.8); Eosinophils % 1.3 %; Hemoglobin 13.1 g/dL (11.5-15.3); Lymphocytes # 1.3 10^3/uL (0.8-4.8); Mean Corpuscular Hemoglobin 27.6 pg (28.0-34.0); Mean Corpuscular Volume 86.5 fL (81-99); Mean Platelet Volume 12.1 fL (7.4-10.4); Monocytes # 0.6 10^3/uL (0.2-0.9); Monocytes % 9.9 %; Neutrophils # 4.27 10^3/uL (1.8-7.7); Neutrophils % 67.3 %; Nucleated Red Blood Cells % 0 %; Platelet Count 257 10^3/cmm (130-400); Red Blood Count 4.74 10^6/uL (4.1-5.3); White Blood Count 6.3 10^3/uL (4.0-10.0)
[2020-12-22 15:55] LABS: Troponin(5th) Baseline 15 ng/L (0-10)
[2020-12-22 16:16] LABS: Alanine Aminotransferase 19 U/L (0-33); Albumin Level 4.1 g/dL (3.5-5.2); Alkaline Phosphatase 108 IU/L (35-105); Aspartate Amino Transferase 20 U/L (0-32); Blood Urea Nitrogen 26 mg/dL (8-23); Calcium 9.3 mg/dL (8.5-10.5); Carbon Dioxide 29 mmol/L (22-29); Chloride 93 mmol/L (98-107); Globulin 3.5 g/dL (1.3-4.6); Glucose 113 mg/dL (65-115); NT Pro B Type Natriuretic Pept 2386 pg/mL (0-450); Osmolality Calculated 290 mOsm/kg (285-295); Sodium 137 mmol/L (136-145); Total Bilirubin 0.7 mg/dL (0.15-1.2); Total Protein 7.6 g/dL (6.6-8.7)
[2020-12-22 16:19] LABS: Anion Gap 17.8 (5-19)
[2020-12-22 16:20] LABS: Potassium 2.8 mmol/L (3.5-5.1)
[2020-12-22 16:42] LABS: Add Urine Microscopic? NO
[2020-12-22 16:56] LABS: Bilirubin Urine Neg (Negative); Blood Urine Neg (Negative); Glucose Urine UA Norm (Normal); Ketones Urine Negative (Negative); Leukocyte Esterase Urine Negative (Negative); Nitrate Urine Negative (Negative); Protein Urine Neg (Negative); Specific Gravity, Urine 1.005 (1.005-1.030); Urine Appearance Clear (CLEAR); Urine Color Yellow (Yellow); Urobilinogen Urine Norm (Negative); pH Urine 5 (5-7)
[2020-12-22] MEDS: potassium chloride ER 20 mEq Tablet 40 MEQ PO (17:22)
[2020-12-22 18:05] LABS: Troponin 5 2HR 15.16 ng/L (0-10); Troponin 5 2HR Delta 0.16 ABS# (0-10)
--- NOTE | 2020-12-22 19:37 | PM.HP ---
Providers/Chief Complaint Admitting Physician: Francisco Minor Primary Care Provider: Yue Thompson MD Chief Complaint: SOB, slight chest pain History of Present Illness Deepali Mulligan is a 75 year old female who has history of diastolic congestive heart failure, paroxysmal atrial fibrillation chronic anticoagulation with Xarelto has recently seen Dr. Solis as follow-up after recent discharge from the hospital after management of diastolic congestive heart exacerbation, hypertensive urgency, and A. fib RVR, presented today for chief complaint of shortness of breath, patient is stating that her symptoms started yesterday. She was watching television when she started experiencing some chest heaviness, she has a pulse oximeter at home and when she checked her pulse her heart rate was 95 but it was fluctuating rapidly. She never experienced palpitations, nausea, vomiting. No recent diarrhea dysuria fever or cough. She has been compliant with her medications. She could not sleep well last night because of the symptoms and decided to come to the hospital today for the evaluation. Diagnostics in the ER revealed paroxysmal atrial fibrillation with RVR she was given 10 mg of Cardizem IV push and then started on Cardizem drip, when I evaluated the patient she was at 10 mg/h, heart rate in 90s systolic blood pressure 140s, patient was asymptomatic endorsed feeling better, she also received 40 meq p.o. potassium in the ER I would request magnesium level previous TSH level was normal, clinically she looks euvolemic no signs of active congestive heart failure chest x-ray unremarkable EKG does not show ischemic or infarctive changes rhythm is atrial fibrillation, JOHN Review of charts: Dr. Solis has increased her metoprolol to 50 mg twice a day, diltiazem has been changed to 240 mg daily from 120 mg, potassium 20 mEq daily, her verapamil has been discontinued due to gastric congestive heart failure, she is also taking clonidine and chlorthalidone for difficult to control hypertension. Losartan was discontinued because of dry cough Review of Systems Const: Denies: fever(s) or chills Eyes: Denies: change in vision ENMT: Denies: throat pain Card: Reports: orthopnea; Denies: chest pain Resp: Reports: dyspnea and non-productive cough GI: Denies: abdominal pain or coffee ground emesis : Denies: flank pain or urinary frequency Musc: Reports: muscle cramps Skin/Breast: Denies: rash Neuro: Denies: headache(s) Psych: Denies: anxiety Endo: Denies: polyuria Heri/Lymph: Denies: easy bruising All/Imm: Denies: urticaria Medications/Allergies Home Medications Medication Instructions Recorded Confirmed Last Taken Type famotidine 10 mg tablet 10 - 20 mg PO DAILY@0830 01/04/20 12/22/20 12/22/20 History aspirin 81 mg PO DAILY@09 11/26/20 12/22/20 12/22/20 History furosemide 20 mg tablet 20 mg PO Q12H 30 Days #60 tab 12/03/20 12/22/20 12/22/20 Rx atorvastatin 80 mg tablet 80 mg PO BEDTIME@ #90 tab 12/13/20 12/22/20 12/21/20 Rx metoprolol tartrate 50 mg tablet 50 mg PO BID@0900,2099 #180 tab 12/13/20 12/22/20 12/22/20 Rx chlorthalidone 25 mg PO DAILY@12/22/20 12/22/20 12/22/20 History clonidine HCl 0.1 mg PO BID@12/22/20 12/22/20 12/22/20 History diltiazem HCl See Rx Instructions .ROUTE .COMPLEX 12/22/20 12/22/20 12/22/20 History potassium chloride [Klor-Con 10] 20 meq PO DAILY@08 12/22/20 12/22/20 12/22/20 History rivaroxaban [Xarelto] 20 mg PO DAILY@2100 12/22/20 12/22/20 12/21/20 History Allergies Allergy/AdvReac Type Severity Reaction Status Date / Time Iodinated Contrast Media Allergy ALGY-Rash Verified 12/03/20 16:10 azithromycin AdvReac Unknown Verified 12/03/20 16:10 naproxen AdvReac Unknown Verified 12/03/20 16:10 PFSH Acute PFSH: Medical History Acid reflux Breast cancer CHF (congestive heart failure), NYHA class III Elevated serum creatinine Elevated serum creatinine High risk medication use Hypertension Other retirement (current) 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 Surgical History H/O: hysterectomy History of inguinal hernia repair History of left mastectomy Family History Other Hyperlipidemia Psychiatric illness Denies family history of Rheumatoid arthritis Lupus Social History Smoking and tobacco status: never smoked Second hand smoke exposure: No Alcohol intake: never Lives independently: Yes Household members: none Current occupational status: employed Current occupation: [employer] History of recent travel: No Current gender identity: Female Vitals/I&O/Wt Last Vital Signs Temp 97.9 F 12/22/20 14:54 Pulse 104 H 12/22/20 18:00 Resp 17 12/22/20 18:00 BP 152/84 12/22/20 18:00 Pulse Ox 92 12/22/20 18:00 12/22/20 12/22/20 12/22/20 06:59 14:59 22:59 Intake Total 10.042 / 10.042 Balance 10.042 / 10.042 Weight last 48 hrs Weight 82.1 kg Physical Exam Narrative: EXAM NARRATIVE: Very pleasant elderly female who was watching television when entered the room No active shortness of breath or chest pain Heart rate 95 A. fib without RVR Cardizem drip running at 10 mg/h Systolic blood pressure in 140s Variable S1-S2 no active chest pain No acute respite distress Abdomen nontender Neurologically nonfocal exam GCS 15 alert oriented x3 EOMI, PERRLA Patient looks euvolemic no sign of active heart failure No sign of ischemia gangrene ulcer of lower extremities No joint swelling Data : 12/22/20 15:28 12/22/20 15:28 A&P Assessment and plan (1) Atrial fibrillation with RVR: Symptomatic A. fib with RVR Currently heart rate 90s with Cardizem drip running at 10 mg/h I have requested nurse to decrease it to 5 mg/h I would increase her metoprolol to 100 mg twice a day and continue same dose of Cardizem 240 mg daily Continue Xarelto Check magnesium level previous TSH level was normal Most likely this incident was triggered by hypokalemia Potassium repleted Most likely etiology is electrolyte imbalance for acute onset A. fib RVR I do not think she will need antiarrhythmic agent at this point for paroxysmal A. fib, outpatient follow-up with Dr. Solis Status: Acute (2) Hypokalemia: I do believe this is secondary to polypharmacy she takes Lasix twice a day along chlorthalidone I would hold chlorthalidone decrease Lasix to once a day as she is euvolemic Counseled patient when to increase Lasix dose Will follow-up with magnesium level no recent diarrhea or vomiting, patient does get nocturia as well Status: Acute Additional A&P Information Diastolic congestive heart failure currently euvolemic decrease Lasix to once a day and held chlorthalidone for now Essential hypertension: Losartan was discontinued due to dry cough clonidine was added along chlorthalidone, currently holding chlorthalidone increase metoprolol dose continue same dose of clonidine, would recommend weaning her off clonidine to prevent rebound hypertension DVT prophylaxis not. She is on Xarelto Cardiac diet Full code Attestations Medical Necessity Statement*: Anticipating discharge in less than 48 hours overnight will need better heart rate control and replenishment of potassium Time Spent in Patient Care: (>than 50% of time spent in counselling and/or direct pt care on unit). 40mins Coding Level of Care Code Acute Licensing Engineer for Jolene Bingham Diagnoses Atrial fibrillation with RVR I48.91 Hypokalemia E87.6
[2020-12-22] MEDS: potassium chloride premix 100 ML 50 MEQ IV (20:00)
--- NOTE | 2020-12-22 21:05 | ECG_ITS ---
[facility] Test Date: 2020-12-22 Pat Name: Deepali Mulligan Department: Room: 107 Gender: Female Mechanic/Welder: KATHY DOMINGUEZ: 1945 Requested By: Marc Perez Order Number: [id number] Cesar MD: Omega Centeno M.D. Measurements Intervals [place] Rate: 89 P: MT: QRS: 6 QRSD: 105 T: 177 QT: 363 QTc: 444 Interpretive Statements ATRIAL FIBRILLATION ST DEVIATION AND MODERATE T-WAVE ABNORMALITY, CONSIDER LATERAL ISCHEMIA [-0.1+ mV T WAVE IN I/aVL/V5/V6] Compared to ECG 12/22/2020 14:53:00 T-wave abnormality now present Possible ischemia now present Left ventricular hypertrophy no longer present Electronically Signed On 12-23-2020 17:07:51 GRADER TENDER by Omega Centeno M.D. [id number]
--- NOTE | 2020-12-22 21:19 | PC.NURSE ---
Spoke with Dr. Cortez regarding this patient's Cardizem drip. The patient is about to receive 100mg metoprolol PO. The patient is only on 5mg per hour of the Cardizem drip so the order was given to DC the drip.
[2020-12-22] MEDS: cloNIDine 0.1 mg Tablet PO (21:24)
[2020-12-22] MEDS: rivaroxaban 10 mg Tablet 20 MG PO (21:24)
[2020-12-22] MEDS: metoprolol tartrate 50 mg Tablet 100 MG PO (21:24)
[2020-12-22] MEDS: atorvastatin 40 mg Tablet 80 MG PO (21:25)
[2020-12-23] VITALS (100 sets, daily range): BP systolic 100–151; BP diastolic 50–91; PULSE 74–106; RESP 0–29; TEMP 36.6–36.7; O2SAT 82–99
[2020-12-23 03:32] LABS: Blood Urea Nitrogen 25 mg/dL (8-23); Calcium 9.3 mg/dL (8.5-10.5); Carbon Dioxide 28 mmol/L (22-29); Chloride 98 mmol/L (98-107); Glucose 121 mg/dL (65-115); Osmolality Calculated 290 mOsm/kg (285-295); Sodium 137 mmol/L (136-145)
[2020-12-23 03:39] LABS: Anion Gap 14.5 (5-19); Potassium 3.5 mmol/L (3.5-5.1)
[2020-12-23] MEDS: cloNIDine 0.1 mg Tablet PO ×2 (09:33→21:54)
[2020-12-23] MEDS: metoprolol tartrate 50 mg Tablet 100 MG PO ×2 (09:33→21:53)
[2020-12-23] MEDS: aspirin 81 mg EC Tablet PO (09:38)
[2020-12-23] MEDS: potassium chloride ER 20 mEq Tablet PO (09:38)
[2020-12-23] MEDS: famotidine 20 mg Tablet 10 MG PO (09:38)
[2020-12-23] MEDS: FUROsemide 20 mg Tablet PO (09:39)
[2020-12-23] MEDS: dilTIAZem ER (24HR) 240 mg Capsule PO (09:39)
--- NOTE | 2020-12-23 11:46 | PC.CHAP ---
Pastoral Care Encounter/Spiritual Assessment Type of Contact [] Declined integrated logistics support manager visit [] Patient/Family/Request visit [] Outpatient visit [] Follow-up visit [] Physician referral [] Code/Alert [XX] Routine visit [XX] Staff referral [] Actively dying [] Patient sleeping [] Family support [] [] Out of room [] Palliative care [] [] Receiving care in room [] Pre-surgical visit [] Trauma [] Long length of stay [] ICU visit [] Other: Relational/Emotional Strength [XX] Patient feels connected with others/family/visitors/staff [XX] Distress [] Loneliness/isolation [] Abandonment Spirituality of Patient [] Person of Tiff [] Attends Buddhism of their Tiff [XX] Believes in Prayer [] Reads Bible or Oriental Orthodox materials [] There are Spiritual issues to be addressed Talent Solutions Manager Interventions [XX] Prayer [XX] Active listening [XX] Non-anxious presence [XX] Spiritual/emotional support [] Crisis/trauma care [] Spiritual counseling [] Bereavement support [] Provided bereavement packet [] Provided Bible/devotional materials [] Provided toy/stuffed animal, coloring book to patient or family member [] Provided Communion [] Anointing/[place] [] Salvation [XX] Completed spiritual assessment [] Other: Impact on Illness or Injury [] Angry [] Fearful [] Anxious [] Often cries [] Exhaustion [] Unable to work [] Unable to attend hinduism [] Unable to walk/stand [] Unable to read [] Unable to drive [] Unable to eat/drink [] Unable to sleep [] Unable to be with family [] Patient intubated [XX] Other: If medical status isn't stable after this hospitalization, she may have to quit work. Currently, she is on medical leave, but that ends 12/28/20. Summary: Pt is distressed with the relatively new diagnosis of a-fib (in the past 7 months) and that the condition is not yet being managed (eg., that the right medication combination has been found). This is her third hospitalization within 2 months. She does not feel that the medical team is listening to her. She has good family support and was very proud of her newest baby granddaughter. She does not report a large community of support but she is not distressed by that fact. [place]; she works at [employer]. She is content with her life if the a-fib can be managed. Time spent with patient: 30 mins
--- NOTE | 2020-12-23 15:06 | P.PN_ITS ---
Subjective Subjective: Interval history: patient was feeling short of breath, no chest pain, no fever or chills, no nausea or vomiting Medications: Reviewed: Yes Vitals/I&O/Wt Last Vital Signs Temp 97.8 F 12/23/20 12:09 Pulse 82 12/23/20 14:00 Resp 18 12/23/20 12:09 BP 145/91 12/23/20 12:00 Pulse Ox 82 L 12/23/20 07:30 12/23/20 12/23/20 12/23/20 06:59 14:59 22:59 Intake Total 0 / 426.709 600 / 600 Balance 0 / 426.709 600 / 600 Weight last 48 hrs Weight 82.1 kg Physical Exam Narrative: EXAM NARRATIVE: Very pleasant elderly female who was watching television when entered the room No active shortness of breath or chest pain Heart rate 95 A. fib without RVR Cardizem drip running at 10 mg/h Systolic blood pressure in 140s Variable S1-S2 no active chest pain No acute respite distress Abdomen nontender Neurologically nonfocal exam GCS 15 alert oriented x3 EOMI, PERRLA Patient looks euvolemic no sign of active heart failure No sign of ischemia gangrene ulcer of lower extremities No joint swelling Data : 12/22/20 15:28 12/23/20 02:47 A&P Assessment and plan (1) Atrial fibrillation with RVR: Symptomatic A. fib with RVR - Rate control improving - Metoprolol/Cardizem - Off cardizem gtt - Continue xarelto - May consider Cardiology consult - ECHO - pending Status: Acute (2) Hypokalemia: BMP in am Replace as needed Status: Acute Additional A&P Information Diastolic congestive heart failure - Daily weight, diuretics, BMP in am Essential hypertension: - Continue current management DVT prophylaxis not. She is on Xarelto Cardiac diet Full code Attestations Medical Necessity Statement*: Continue hospitalization for management of heart failure and atrial fib Time Spent in Patient Care: Greater than 35 minutes (>than 50% of time spent in counselling and/or direct pt care on unit) . Coding Level of Care Code Acute Senior Sales Representative for Jolene Fwjustina Diagnoses Atrial fibrillation with RVR I48.91 Hypokalemia E87.6
[2020-12-23] MEDS: atorvastatin 40 mg Tablet 80 MG PO (21:53)
[2020-12-23] MEDS: rivaroxaban 10 mg Tablet 20 MG PO (21:53)
[2020-12-24] VITALS (33 sets, daily range): BP systolic 100–135; BP diastolic 56–80; PULSE 70–87; RESP 9–47; TEMP 36.6–37.1; O2SAT 93–99
[2020-12-24] MEDS: famotidine 20 mg Tablet 10 MG PO (08:36)
[2020-12-24] MEDS: aspirin 81 mg EC Tablet PO (08:36)
[2020-12-24] MEDS: potassium chloride ER 20 mEq Tablet PO (08:38)
[2020-12-24] MEDS: dilTIAZem ER (24HR) 240 mg Capsule PO (08:38)
[2020-12-24] MEDS: FUROsemide 20 mg Tablet PO (08:39)
[2020-12-24] MEDS: metoprolol tartrate 50 mg Tablet 100 MG PO ×2 (08:39→20:11)
--- NOTE | 2020-12-24 09:18 | PC.CHAP ---
Pastoral Care Encounter/Spiritual Assessment Type of Contact [] Declined housekeeper supervisor visit [] Patient/Family/Request visit [] Outpatient visit [] Follow-up visit [] Physician referral [] Code/Alert [x] Routine visit [] Staff referral [] Actively dying [] Patient sleeping [] Family support [] [] Out of room [] Palliative care [] [] Receiving care in room [] Pre-surgical visit [] Trauma [] Long length of stay [] ICU visit [] Other: Relational/Emotional Strength [] Patient feels connected with others/family/visitors/staff [] Distress [] Loneliness/isolation [] Abandonment Spirituality of Patient [] Person of Tiff [] Attends Church of their Tiff [] Believes in Prayer [] Reads Bible or Sabianism materials [] There are Spiritual issues to be addressed Commercial Analyst Interventions [x] Prayer [] Active listening [] Non-anxious presence [] Spiritual/emotional support [] Crisis/trauma care [] Spiritual counseling [] Bereavement support [] Provided bereavement packet [] Provided Bible/devotional materials [] Provided toy/stuffed animal, coloring book to patient or family member [] Provided Communion [] Anointing/[place] [] Salvation [x] Completed spiritual assessment [] Other: Impact on Illness or Injury [] Angry [] Fearful [] Anxious [] Often cries [] Exhaustion [] Unable to work [] Unable to attend spiritism [] Unable to walk/stand [] Unable to read [] Unable to drive [] Unable to eat/drink [] Unable to sleep [] Unable to be with family [] Patient intubated [] Other: Summary no chest pains... a fib.... working at [employer].. Time spent with patient 10 min
--- NOTE | 2020-12-24 10:28 | P.PN_ITS ---
Subjective Subjective: Interval history: patient was feeling short of breath, no chest pain, no fever or chills, no nausea or vomiting. Her Vitals have been reviewed,labs not ordered. Medications: Reviewed: Yes Vitals/I&O/Wt Last Vital Signs Temp 98.8 F 12/24/20 07:12 Pulse 79 12/24/20 07:12 Resp 20 H 12/24/20 07:12 BP 100/80 12/24/20 07:12 Pulse Ox 95 12/24/20 07:12 12/23/20 12/24/20 12/24/20 22:59 06:59 14:59 Intake Total 390 / 990 100 / 1090 360 / 360 Balance 390 / 990 100 / 1090 360 / 360 Weight last 48 hrs Weight 82.1 kg Physical Exam Const: COMMON NORMALS: patient oriented x3 HENMT: COMMON NORMALS: normocephalic and atraumatic HEAD & SCALP: normocephalic and atraumatic Chest: CHEST: Yes Symmetrical chest wall rise Resp: COMMON NORMALS: normal respiratory effort, No retractions, No use of accessory muscles and clear to auscultation bilaterally EFFORT & INSPECTION: Yes symmetric chest movement AUSCULTATION: clear to auscultation bilaterally Cardio: COMMON NORMALS: No gallops present (Cardio), No murmurs present (Cardio), No rub (Cardio) and Peripheral pulses 2+ throughout PERIPHERAL PULSES: Peripheral pulses 2+ throughout OTHER: S1S2 of variable intensity. GI: COMMON NORMALS: Normal to inspection, nondistended, normoactive bowel sounds present, Soft to palpation, non-tender, No hepatosplenomegaly present and no masses AUSCULTATION: Yes normoactive bowel sounds PALPATION: Yes Soft to palpation and Yes No hepatosplenomegaly present RECTAL EXAM: deferred Extremity: COMMON NORMALS: no clubbing, cyanosis or edema and no pedal edema Neuro: COMMON NORMALS: patient oriented x3 Data : 12/22/20 15:28 12/23/20 02:47 A&P Assessment and plan (1) Atrial fibrillation with RVR: Symptomatic A. fib with RVR - Rate control improving - Metoprolol/Cardizem - Off cardizem gtt - Continue xarelto - May consider Cardiology consult - ECHO - : Normal: L.V Size, LVEF: 51 % , No RWMA, Abnormal diastolic function. Status: Acute (2) Hypokalemia: BMP in am Replace as needed Status: Acute Additional A&P Information Diastolic congestive heart failure: -Daily weight -Increased lasix to 40 mg PO Daily from 20 mg PO daily -Monitor BMP -Monitor Mg >2 k:4 Essential hypertension: - Continue current management DVT prophylaxis . on Xarelto Cardiac diet Full code Attestations Medical Necessity Statement*: Patient needs to be in hospital for the management of Decompensated HFpEF. Coding Level of Care Code Acute Advertising Designer for Jolene Bingham Diagnoses Atrial fibrillation with RVR I48.91 Hypokalemia E87.6
--- NOTE | 2020-12-24 10:48 | PC.NURSE ---
Pts IV in left AC noted to be edematous and reddened and pt reports that site is sore. IV removed, cath tip intact. Pressure applied with 2x2 guaze and secured with coban. Pt isaac well.
[2020-12-24] MEDS: FUROsemide 10 mg/mL SDV 4mL 40 MG IVP (14:05)
[2020-12-24] MEDS: atorvastatin 40 mg Tablet 80 MG PO (20:11)
[2020-12-24] MEDS: rivaroxaban 10 mg Tablet 20 MG PO (20:11)
[2020-12-24] MEDS: cloNIDine 0.1 mg Tablet PO (20:12)
--- NOTE | 2020-12-24 20:21 | PC.NURSE ---
Received call from Dr Rabago. Discussed his plan is to order cardiac stress for patient in the morning. Informed patient of doctor's intent. Patient is afraid to have any test that affects her heart. Discussed need that we need to find out what is going on with her heart. Patient agreeable for now. Informed Dr Rabago of patient's concerns. Doctor to place order for stress test.
--- NOTE | 2020-12-24 22:06 | PC.NURSE ---
Patient is very anxious about having a stress test tomorrow. Patient is not sure she will go ahead with test in the morning. Provided education regarding need for stress and alterative information regarding dismissing the test. Patient verbalized understanding but still remains insecure. Will continue to provide education.
[2020-12-25] VITALS (11 sets, daily range): BP systolic 112–161; BP diastolic 65–99; PULSE 63–102; RESP 14–21; TEMP 36.3–37.1; O2SAT 93–96
[2020-12-25 05:04] LABS: Basophils % 0.6 %; Eosinophils # 0.2 10^3/uL (0.0-0.8); Eosinophils % 3.5 %; Hematocrit 39.6 % (37.0-47.0); Hemoglobin 12.5 g/dL (11.5-15.3); Lymphocytes # 1.4 10^3/uL (0.8-4.8); Lymphocytes % 25.8 %; Mean Corpuscular HGB Conc 31.6 g/dL (30.0-36.0); Mean Corpuscular Hemoglobin 27.5 pg (28.0-34.0); Mean Platelet Volume 12.2 fL (7.4-10.4); Monocytes # 0.8 10^3/uL (0.2-0.9); Monocytes % 15.1 %; Neutrophils # 2.96 10^3/uL (1.8-7.7); Neutrophils % 54.6 %; Nucleated Red Blood Cells % 0 %; Platelet Count 218 10^3/cmm (130-400); Red Blood Count 4.55 10^6/uL (4.1-5.3); Red Cell Distribution Width 14.1 % (12.1-15.1); White Blood Count 5.4 10^3/uL (4.0-10.0)
[2020-12-25 05:55] LABS: Alanine Aminotransferase 21 U/L (0-33); Albumin Level 3.7 g/dL (3.5-5.2); Alkaline Phosphatase 92 IU/L (35-105); Aspartate Amino Transferase 19 U/L (0-32); Blood Urea Nitrogen 22 mg/dL (8-23); Calcium 9.3 mg/dL (8.5-10.5); Carbon Dioxide 32 mmol/L (22-29); Chloride 97 mmol/L (98-107); Globulin 3.4 g/dL (1.3-4.6); Glucose 120 mg/dL (65-115); Magnesium 1.9 mg/dL (1.7-2.3); Osmolality Calculated 293 mOsm/kg (285-295); Sodium 139 mmol/L (136-145); Total Bilirubin 0.7 mg/dL (0.15-1.2); Total Protein 7.1 g/dL (6.6-8.7)
--- NOTE | 2020-12-25 07:55 | PC.NURSE ---
cdl nurse called by [facility]. was told to cancel stress test due to the pts anxiety. test cancelled.
[2020-12-25] MEDS: diazePAM 5 mg Tablet PO (08:16)
[2020-12-25] MEDS: potassium chloride ER 20 mEq Tablet PO (08:17)
[2020-12-25] MEDS: metoprolol tartrate 50 mg Tablet 100 MG PO (08:17)
[2020-12-25] MEDS: dilTIAZem ER (24HR) 240 mg Capsule PO (08:17)
[2020-12-25] MEDS: FUROsemide 20 mg Tablet 40 MG PO (08:17)
[2020-12-25] MEDS: famotidine 20 mg Tablet 10 MG PO (08:17)
[2020-12-25] MEDS: aspirin 81 mg EC Tablet PO (08:17)
[2020-12-25] MEDS: cloNIDine 0.1 mg Tablet PO (08:18)
--- NOTE | 2020-12-25 08:55 | ECG_ITS ---
[facility] Test Date: 2020-12-25 Pat Name: Deepali Mulligan Department: Room: 107 Gender: Female Manager Wholesale: : 1945 Requested By: Jody Solis Order Number: [id number] Cesar MD: Jody Solis M.D. Interpretive Statements NAME OF STUDY: LEXISCAN SESTAMIBI STRESS TEST INDICATION: Chest Pain, dyspnea on exertion PROCEDURE: At the baseline, the blood pressure was 149/82 mmHg, oxygen saturation 94% with a heart rate of 93 bpm. The electrocardiogram showed atrial fibrillation with rapid ventricular response, normal axis with nonspecific. Aberrantly conducted beat or PVCs noted. ST depression and T wave inversion in inferolateral leads. The Lexiscan was infused over a period of 20 seconds. A total of 0.4 milligrams of Lexiscan was infused. The stress phase was continued for a total of 5 minutes. Heart rate at the end of the stress phase was 93 bpm, oxygen saturation 95% with a blood pressure of 113/77 mmHg. The EKG at the peak infusion revealed no significant ST-T wave changes. Sestamibi was injected 20 seconds after the Lexiscan infusion. Blood pressure at the end of the recovery phase was 114/75 mmHg, oxygen saturation 92% with a heart rate of 98 beats per minute. CONCLUSION: 1. No significant EKG changes with the LexiScan infusion. 2. No LexiScan induced chest pain or cardiac arrhythmia. 3. Normal blood pressure and heart rate response. 4. Sestamibi/sestamibi perfusion scan pending; see separate report. Electronically Signed On 12-25-2020 12:26:24 PRACTICAL NURSE CLINICAL COORDINATOR by Jody Solis M.D. [email or web address]/[id number]
[2020-12-25] MEDS: regadenoson 0.4 Mg/5 ml Syringe IVP (09:07)
--- NOTE | 2020-12-25 10:14 | P.PN_ITS ---
Subjective Subjective: Interval history: No acute event overnight. Vitals and labs have been reviewed. Medications: Reviewed: Yes Vitals/I&O/Wt Last Vital Signs Temp 98.8 F 12/25/20 07:17 Pulse 92 12/25/20 09:20 Resp 20 H 12/25/20 07:17 BP 114/75 12/25/20 09:20 Pulse Ox 93 12/25/20 07:17 12/24/20 12/25/20 12/25/20 22:59 06:59 14:59 Intake Total 120 / 600 Output Total 900 / 900 1125 / 2024 900 / 900 Balance -780 / -300 -1125 / -1425 -900 / -900 Physical Exam Const: COMMON NORMALS: patient oriented x3 HENMT: COMMON NORMALS: normocephalic and atraumatic HEAD & SCALP: normocephalic and atraumatic Chest: CHEST: Yes Symmetrical chest wall rise Resp: COMMON NORMALS: normal respiratory effort, No retractions, No use of accessory muscles and clear to auscultation bilaterally EFFORT & INSPECTION: Yes symmetric chest movement AUSCULTATION: clear to auscultation bilaterally Cardio: COMMON NORMALS: No gallops present (Cardio), No murmurs present (Cardio), No rub (Cardio) and Peripheral pulses 2+ throughout PERIPHERAL PULSES: Peripheral pulses 2+ throughout OTHER: S1S2 of variable intensity. GI: COMMON NORMALS: Normal to inspection, nondistended, normoactive bowel sounds present, Soft to palpation, non-tender, No hepatosplenomegaly present and no masses AUSCULTATION: Yes normoactive bowel sounds PALPATION: Yes Soft to palpation and Yes No hepatosplenomegaly present RECTAL EXAM: deferred Extremity: COMMON NORMALS: no clubbing, cyanosis or edema and no pedal edema Neuro: COMMON NORMALS: patient oriented x3 Data : 12/25/20 04:30 12/25/20 04:30 A&P Assessment and plan (1) Atrial fibrillation with RVR: Symptomatic A. fib with RVR - Rate control improving - Metoprolol/Cardizem - Off cardizem gtt - Continue xarelto - May consider Cardiology consult - ECHO - : Normal: L.V Size, LVEF: 51 % , No RWMA, Abnormal diastolic function. - Stress Test : (2/2) : Small sized perfusion abnormality of mild severity of mid to apical inferior wall on rest images with somewhat improved tracer uptake on stress images. This very likely represents attenuation artifact. -Appreciate Cardiology Rec Status: Acute (2) Hypokalemia: BMP in am Replace as needed Status: Acute Additional A&P Information Diastolic congestive heart failure: -Daily weight -lasix to 40 mg I.V Q12 H Daily -Monitor BMP -Monitor Mg >2 k> 4 Essential hypertension: - Continue current management DVT prophylaxis . on Xarelto Cardiac diet Full code Attestations Medical Necessity Statement*: Patient needs to be in hospital for the management of A.fib as well as Decompensation of HFpEF Coding Level of Care Code Acute Powder Core Tester for g Fwd Diagnoses Atrial fibrillation with RVR I48.91 Hypokalemia E87.6
--- NOTE | 2020-12-25 11:56 | PC.NURSE ---
patient requested more ice water at this time. was obtained and no other needs identified. call light within reach.
--- NOTE | 2020-12-25 12:53 | PM.CONSULT ---
Providers/Reason For Consult Consulting Physican/Specialty*: Dr. Solis, cardiology Reason for Consult*: Recurrent hospital admissions with atrial fibrillation with rapid ventricular response and congestive heart failure Attending Physician: Rojelio Rabago MD Primary Care Provider: Yue Thompson MD History of Present Illness History of Present Illness Deepali Mulligan is a 75 year old female with PMHx of HTN, h/o breast cancer s/p surgery and chemotherapy in for 6 month She has been hospitalized twice recently with Mario lizama with RVR and decompensated congestive heart failure. Her verapamil was discontinued and she was transitioned to Cardizem. She was also started on Lasix 20 mg twice a day with potassium along with chlorthalidone. She is also on metoprolol tartrate 50 mg twice a day and clonidine 0.1 mg twice a day. Losartan was stopped because of complaints of cough. Patient states she feels well her blood pressure has been better controlled. She is well known to me as an outpatient. She was admitted again with worsening SOB and palpitations/heart racing that started Thursday and persisted on Thursday and hence she decided to come to the hospital. Occasional chest pains in this setting. She received lasix but has LOS stayed even. She eventually underwent stress test this morning after much counselling and Valium. Her daughter was present bedside at the time of evaluation. Review of Systems Const: Denies: fever(s) or chills Eyes: Denies: change in vision ENMT: Denies: throat pain or epistaxis Card: Reports: orthopnea; Denies: chest pain Resp: Reports: dyspnea and non-productive cough; Denies: wheezing or hemoptysis GI: Denies: abdominal pain or coffee ground emesis : Denies: flank pain or urinary frequency Musc: Reports: muscle cramps; Denies: extremity pain or extremity swelling Skin/Breast: Denies: rash Neuro: Denies: headache(s), numbness in extremities, weakness in extremities or Slurred speech present Psych: Denies: anxiety or depression Endo: Denies: polyuria or tired all the time Heri/Lymph: Denies: easy bruising All/Imm: Denies: urticaria Meds/Allergies Home Medications and Allergies Home Medications Medication Instructions Recorded Confirmed Last Taken Type famotidine 10 mg tablet 10 - 20 mg PO DAILY@0830 01/04/20 12/22/20 12/22/20 History aspirin 81 mg PO DAILY@09 11/26/20 12/22/20 12/22/20 History furosemide 20 mg tablet 20 mg PO Q12H 30 Days #60 tab 12/03/20 12/22/20 12/22/20 Rx atorvastatin 80 mg tablet 80 mg PO BEDTIME@21 #90 tab 12/13/20 12/22/20 12/21/20 Rx metoprolol tartrate 50 mg tablet 50 mg PO BID@09,2099 #180 tab 12/13/20 12/22/20 12/22/20 Rx chlorthalidone 25 mg PO DAILY@12/22/20 12/22/20 12/22/20 History clonidine HCl 0.1 mg PO BID@12/22/20 12/22/20 12/22/20 History diltiazem HCl See Rx Instructions .ROUTE .COMPLEX 12/22/20 12/22/20 12/22/20 History potassium chloride [Klor-Con 10] 20 meq PO DAILY@12/22/20 12/22/20 12/22/20 History rivaroxaban [Xarelto] 20 mg PO DAILY@209912/22/20 12/22/20 12/21/20 History Allergies Allergy/AdvReac Type Severity Reaction Status Date / Time Iodinated Contrast Media Allergy ALGY-Rash Verified 12/03/20 16:10 azithromycin AdvReac Unknown Verified 12/03/20 16:10 naproxen AdvReac Unknown Verified 12/03/20 16:10 Current Medications Current Medications Generic Name Dose Route Start Last Admin Trade Name Lanq PRN Reason Stop Dose Admin Aspirin 81 mg 12/23/20 09:00 12/25/20 08:17 Aspirin 81 Mg Ec Tablet PO 81 mg DAILY@09 ANITHA Administration Atorvastatin Calcium 80 mg 12/22/20 21:00 12/24/20 20:11 Atorvastatin 40 Mg Tablet PO 80 mg BEDTIME@ ANITHA Administration Clonidine HCl 0.1 mg 12/22/20 21:00 12/25/20 08:18 Clonidine 0.1 Mg Tablet PO 0.1 mg BID@ ANITHA Administration Diltiazem HCl 240 mg 12/23/20 09:00 12/25/20 08:17 Diltiazem Er (24hr) 240 Mg Capsule PO 240 mg DAILY ANITHA Administration Famotidine 10 mg 12/23/20 08:30 12/25/20 08:17 Famotidine 20 Mg Tablet PO 10 mg DAILY@0830 ANITHA Administration Furosemide 40 mg 12/25/20 09:00 12/25/20 08:17 Furosemide 20 Mg Tablet PO 40 mg DAILY ANITHA Administration Metoprolol Tartrate 100 mg 12/22/20 21:00 12/25/20 08:17 Metoprolol Tartrate 50 Mg Tablet PO 100 mg BID@0900,2100 ANITHA Administration Potassium Chloride 20 meq 12/23/20 08:00 12/25/20 08:17 Potassium Chloride Er 20 Meq Tablet PO 20 meq DAILY@08 ANITHA Administration Rivaroxaban 20 mg 12/22/20 21:00 12/24/20 20:11 Rivaroxaban 10 Mg Tablet PO 20 mg DAILY@2100 ANITHA Administration PFSH Acute PFSH: Medical History Acid reflux Breast cancer CHF (congestive heart failure), NYHA class III Elevated serum creatinine Elevated serum creatinine High risk medication use Hypertension Other senior care (current) 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 Surgical History H/O: hysterectomy History of inguinal hernia repair History of left mastectomy Family History Other Hyperlipidemia Psychiatric illness Denies family history of Rheumatoid arthritis Lupus Social History Smoking and tobacco status: never smoked Second hand smoke exposure: No Alcohol intake: never Lives independently: Yes Household members: none Current occupational status: employed Current occupation: [employer] History of recent travel: No Current gender identity: Female Vitals/I&O/Wt Last Vital Signs Temp 97.4 F L 12/25/20 11:30 Pulse 99 12/25/20 11:30 Resp 21 H 12/25/20 11:30 BP 123/65 12/25/20 11:30 Pulse Ox 94 12/25/20 11:30 12/24/20 12/25/20 12/25/20 22:59 06:59 14:59 Intake Total 120 / 600 720 / 720 Output Total 900 / 900 1124 / 2024 900 / 900 Balance -780 / -300 -1125 / -1425 -180 / -180 Physical Exam Const: COMMON NORMALS: no acute distress, patient oriented x3 and alert GENERAL APPEARANCE: cooperative, comfortable, well kempt and well hydrated HENMT: COMMON NORMALS: hearing grossly normal bilaterally and external ears normal FACE & SINUS: normal facial exam EXTERNAL EAR: Yes external ears normal MOUTH: lip normal Eye: COMMON NORMALS: EOMs intact bilaterally and no scleral icterus GENERAL EYE: appearance normal, both eyes and all related structures ALIGNMENT: Yes alignment normal Neck/C-Spine: COMMON NORMALS: supple and no JVD GENERAL: Yes normal visual inspection and Yes trachea midline CAROTIDS: Yes normal carotid upstroke Lymph: LYMPHATIC: no lymphadenopathy noted Chest: COMMONS NORMALS: normal inspection of the chest and normal palpation of entire chest wall CHEST: Yes Symmetrical chest wall rise and No tenderness Resp: COMMON NORMALS: clear to auscultation bilaterally (except at bases) EFFORT & INSPECTION: Yes able to speak in complete sentences and No respiratory distress AUSCULTATION: clear to auscultation bilaterally (except at bases), no crackles, no rales, no rhonchi and no wheezes Cardio: COMMON NORMALS: no JVD, regular rate, S1 normal heart sound present, S2 normal heart sound present and Peripheral pulses 2+ throughout PALPATION: normal PMI RATE: regular rate RHYTHM: abnormal rhythm irregularly irregular HEART SOUNDS: S1 normal heart sound present, S2 normal heart sound present, no gallops and Murmur heart sound present systolic BRUITS: no carotid bruits PERIPHERAL PULSES: Peripheral pulses 2+ throughout, radial pulses present, posterior tibial pulses present and dorsalis pedis present GI: COMMON NORMALS: Soft to palpation AUSCULTATION: Yes normoactive bowel sounds PALPATION: Yes Soft to palpation, No Tenderness to palpation present (GI), No Guarding due to palpation present (GI) and No Rigid due to palpation PERCUSSION: tympanic to percussion Extremity: GENERAL: No clubbing, No cyanosis, No edema and No pallor Neuro: COMMON NORMALS: patient oriented x3, CN's II-XII intact bilaterally and no focal motor deficits SENSORIUM/ORIENTATION: Yes alert Psych: COMMON NORMALS: Normal thought process present and speech normal APPEARANCE: Yes well kempt SPEECH: Yes normal speech MOOD & AFFECT: Yes euthymic mood THOUGHT PROCESS: Normal thought process present THOUGHT CONTENT: Yes Normal thought content present Skin: COMMON NORMALS: no rashes or lesions noted GENERAL SKIN EXAM: no rashes or lesions noted Data Other Data: Attestation for Other Data: I personally reviewed and interpreted the following: Other data: ECHo (05/05/2019): Normal LV size, systolic function. LVEF=55%. Grade 2 DD. No RWMA. Moderately increased LA size. Mild TR. RVSP-40 mm Hg. EKG: Atrial fibrillation with RVR with aberrent conduction or PVC. Voltage crieteria for LVH. Possible septal AL of indeterminate age. T wave abnormality, consider lateral ischemia. Follow up EKG : sinus rhythm with occasional PVC, LVH and ST-T wave changes. Possible septal AL of indeterminate age. Holter Monitor (02/2020) Conclusion: 1. Baseline rhythm is sinus rhythm. 2. No patient symptoms mentioned. 3. There were 3 runs of nonsustained ventricular tachycardia (4-8 beats long) that were asymptomatic. TTE (10/2020) CONCLUSIONS 1. Normal left ventricular cavity size. Low normal left ventricular systolic function. Left ventricular ejection fraction is estimated at 51 %. No diagnostic regional wall motion abnormalities. Abnormal diastolic function. 2. Pulmonary artery pressure estimated at 34 mmHg. 3. Moderately increased left atrial size. 4. Moderate posteriorly directed mitral valve regurgitation. 5. When compared to previous echo dated 05/05/2019, there may not have been any significant change. Lexiscan sestamibi myocardial perfusion imaging 25 December 2020 IMPRESSIONS 1. Small sized perfusion abnormality of mild severity of mid to apical inferior wall on rest images with somewhat improved tracer uptake on stress images. This very likely represents attenuation artifact. 2. The left ventricular ejection fraction is reduced with a value of 28%. Patient was in atrial fibrillation with remittent rapid ventricular response during the study. 3. There is global hypokinesis. 4. No prior similar studies to compare. Chest x-ray 12/22/20 IMPRESSION: 1. No acute pulmonary disease identified. 2. No significant change from comparison 11/28/2020. Carotid duplex 10 November 2020 IMPRESSION: No hemodynamically significant arterial stenosis. A&P Assessment and plan (1) Atrial fibrillation: It seems like she is not tolerating A. fib and I believe she will benefit from attempting rhythm control with amiodarone and RICO/CV. -start on Amiodarone 400 mg TID and continue Xarelto. -continue metoprolol tartrate 100 mg BID and decrease cardizem to 120 mg daily starting tomorrow. -This was discussed in detail with patient and her daughter. Status: Acute Qualifiers: Atrial fibrillation type: unspecified Qualified Code(s): I48.91 - Unspecified atrial fibrillation (2) CHF (congestive heart failure), NYHA class III: Low normal LVEF -decompensation in setting of A. fib with RVR agree with increasing lasix to 40 mg IV BID. Status: Acute Qualifiers: Congestive heart failure type: diastolic Congestive heart failure chronicity: chronic Qualified Code(s): I50.32 - Chronic diastolic (congestive) heart failure (3) Hypertension: Status: Acute Qualifiers: Hypertension type: essential hypertension Qualified Code(s): I10 - Essential (primary) hypertension (4) Hyperlipidemia: Status: Acute Qualifiers: Hyperlipidemia type: unspecified Qualified Code(s): E78.5 - Hyperlipidemia, unspecified Additional A&P Information HYpokalemia: replaced Moderate MR: on last echo, will reevaluate with RICO. Thank you for allowing me to participate in patient's care. Please feel free to call with questions or concerns. Consult Attestations Medical Necessity Statement: Needs hospital stay for CHF and A. fib Time Spent in Patient Care: Greater than 35 minutes (>than 50% of time spent in counselling and/or direct pt care on unit). Coding Level of Care Code Acute Fiberglass Product Tester for Jolene Fwd Diagnoses Atrial fibrillation I48.91 Atrial fibrillation type: unspecified CHF (congestive heart failure), NYHA class III I50.32 Congestive heart failure type: diastolic Congestive heart failure chronicity: chronic Hypertension I10 Hypertension type: essential hypertension Hyperlipidemia E78.5 Hyperlipidemia type: unspecified
[2020-12-25] MEDS: potassium chloride ER 20 mEq Tablet 40 MEQ PO (14:16)
[2020-12-25] MEDS: amiodarone 200 mg Tablet 400 MG PO ×2 (14:16→20:04)
[2020-12-25] MEDS: FUROsemide 10 mg/mL SDV 4mL 40 MG IVP (16:24)
--- NOTE | 2020-12-25 19:48 | PC.NURSE ---
Received report from ELI Harper. Patient up to sink brushing her teeth. Patient denies any discomforts or needs. No distress observed.
--- NOTE | 2020-12-25 19:54 | PC.NURSE ---
Placed call to Dr Solis as requested by her to update on patient's blood pressure and heart rate. Current BP is 112/66 with HR of 88. Received ok to give scheduled Metoprolol and amiodarone, to hold clonidine at this time. May give clonidine late if SBP becomes >150.
[2020-12-25] MEDS: rivaroxaban 10 mg Tablet 20 MG PO (20:04)
[2020-12-25] MEDS: metoprolol tartrate 50 mg Tablet PO (20:04)
[2020-12-25] MEDS: atorvastatin 40 mg Tablet 80 MG PO (20:05)
--- NOTE | 2020-12-25 20:39 | NMCV_ITS ---
NM cindy perf SPECT r/s* [id number] Deepali Mulligan Age: 75 Gender: F : 1945 Exam Date: 12/25/2020 07:38 Ordering Phys: Jody Solis MD ([email or web address]) Technologist: LAMBERT Spaulding Exam Location: [facility] Indications: Chest pain, SOB STRESS TEST [facility] IMAGE PROTOCOL Rest/Stress 1 Lexiscan Day Radiopharmaceutical Dose (mCi) Administration Site Administered by Rest: Tc-99m 10.6 IV LAMBERT Hendrix Sestamibi Stress:Tc-99m 32.8 IV LAMBERT Spaulding Sestamikurt Rest: 25-Dec-2020 60 Discovery 630 Stress: 25-Dec-2020 60 Discovery 630 0.4mg Lexiscan. Supine position only as patient was unable to lay prone. SPECT RESULTS Technical Quality: Good Raw Data Analysis: Normal Image Corrections: No attenuation or motion correction applied Summed Stress Score: 3 Summed Rest Score: 4 Summed Difference Score: 0 PERFUSION FINDINGS Small sized perfusion abnormality of mild severity of mid to apical inferior wall on rest images with somewhat improved tracer uptake on stress images. FUNCTIONAL RESULTS (calculated via Gated SPECT) Stress Image LV EF (%): 28 Stress EDV (mL):106 TID: 1.13 Stress ESV (mL):76 FUNCTIONAL FINDINGS: The left ventricle is dilated. Transient Ischemia Dilatation of 1.1. There is severely reduced left ventricular global systolic function. Patient was in atrial fibrillation with remittent rapid ventricular response during the study. The left ventricular ejection fraction is reduced with a value of 28%. There is global hypokinesis. IMPRESSIONS 1. Small sized perfusion abnormality of mild severity of mid to apical inferior wall on rest images with somewhat improved tracer uptake on stress images. This very likely represents attenuation artifact. 2. The left ventricular ejection fraction is reduced with a value of 28%. Patient was in atrial fibrillation with remittent rapid ventricular response during the study. 3. There is global hypokinesis. 4. No prior similar studies to compare. Jody Solis MD (Electronically Signed) Final Date: 25 December 2020 12:51 S
[2020-12-26] VITALS (36 sets, daily range): BP systolic 98–133; BP diastolic 58–81; PULSE 61–91; RESP 12–40; TEMP 36.4–36.9; O2SAT 94–98
[2020-12-26] MEDS: FUROsemide 10 mg/mL SDV 4mL 40 MG IVP (03:52)
[2020-12-26 05:11] LABS: Basophils % 0.4 %; Eosinophils # 0.1 10^3/uL (0.0-0.8); Eosinophils % 2.7 %; Hematocrit 42.6 % (37.0-47.0); Hemoglobin 13.4 g/dL (11.5-15.3); Lymphocytes # 1.3 10^3/uL (0.8-4.8); Lymphocytes % 25.7 %; Mean Corpuscular HGB Conc 31.5 g/dL (30.0-36.0); Mean Corpuscular Hemoglobin 27.7 pg (28.0-34.0); Mean Platelet Volume 12.6 fL (7.4-10.4); Monocytes # 0.7 10^3/uL (0.2-0.9); Monocytes % 13.2 %; Neutrophils % 57.6 %; Nucleated Red Blood Cells % 0 %; Platelet Count 237 10^3/cmm (130-400); Red Blood Count 4.84 10^6/uL (4.1-5.3); Red Cell Distribution Width 14.2 % (12.1-15.1); White Blood Count 5.2 10^3/uL (4.0-10.0)
[2020-12-26 05:39] LABS: Alanine Aminotransferase 24 U/L (0-33); Albumin Level 3.8 g/dL (3.5-5.2); Alkaline Phosphatase 98 IU/L (35-105); Anion Gap 13.3 (5-19); Aspartate Amino Transferase 23 U/L (0-32); Blood Urea Nitrogen 22 mg/dL (8-23); Calcium 9.5 mg/dL (8.5-10.5); Carbon Dioxide 33 mmol/L (22-29); Chloride 93 mmol/L (98-107); Creatinine Clr Calc Pharmacy 47.1943; Globulin 3.9 g/dL (1.3-4.6); Glucose 131 mg/dL (65-115); Osmolality Calculated 287 mOsm/kg (285-295); Potassium 3.3 mmol/L (3.5-5.1); Sodium 136 mmol/L (136-145); Total Bilirubin 0.7 mg/dL (0.15-1.2); Total Protein 7.7 g/dL (6.6-8.7)
[2020-12-26] MEDS: cloNIDine 0.1 mg Tablet PO (08:30)
[2020-12-26] MEDS: potassium chloride ER 20 mEq Tablet PO ×2 (08:30→17:36)
[2020-12-26] MEDS: famotidine 20 mg Tablet 10 MG PO (08:30)
[2020-12-26] MEDS: amiodarone 200 mg Tablet 400 MG PO ×3 (08:30→20:59)
[2020-12-26] MEDS: metoprolol tartrate 50 mg Tablet 100 MG PO ×2 (08:30→20:59)
[2020-12-26] MEDS: dilTIAZem ER (24HR) 120 mg Capsule PO (08:31)
[2020-12-26] MEDS: aspirin 81 mg EC Tablet PO (08:31)
[2020-12-26] MEDS: lidocaine 1% 5 ML in potassium chloride premix 100 ML 50 ML IV (08:31)
--- NOTE | 2020-12-26 09:18 | PC.NURSE ---
verbal order from dr. france to stop iv potassium and give po potassium now.
[2020-12-26] MEDS: potassium chloride ER 20 mEq Tablet 40 MEQ PO (09:23)
--- NOTE | 2020-12-26 09:24 | PC.NURSE ---
iv potassium paused and wasted due to patient stating, I can't take that. It is making me sick to my stomach, like I am going to vomit and it is hurting way too bad.
--- NOTE | 2020-12-26 09:33 | DCPLANNER ---
IMM completed with pt on 12/26/20 @ 6567. Copy of rights given to pt.
--- NOTE | 2020-12-26 13:43 | PM.PN ---
Subjective Subjective: Interval history: No acute event overnight. She feels better. Medications: Reviewed: Yes Vitals/I&O/Wt Last Vital Signs Temp 98.3 F 12/26/20 12:00 Pulse 80 12/26/20 12:00 Resp 18 12/26/20 12:00 BP 98/63 12/26/20 12:00 Pulse Ox 95 12/26/20 12:00 12/25/20 12/26/20 12/26/20 22:59 06:59 14:59 Intake Total 220 / 940 120 / 1060 370.833 / 370.833 Output Total 1100 / 2000 500 / 2500 1000 / 1000 Balance -880 / -1060 -380 / -1440 -629.167 / -629.167 Physical Exam Const: COMMON NORMALS: no acute distress, patient oriented x3 and alert GENERAL APPEARANCE: cooperative, comfortable, well kempt and well hydrated HENMT: COMMON NORMALS: hearing grossly normal bilaterally and external ears normal FACE & SINUS: normal facial exam EXTERNAL EAR: Yes external ears normal MOUTH: lip normal Eye: COMMON NORMALS: EOMs intact bilaterally and no scleral icterus GENERAL EYE: appearance normal, both eyes and all related structures ALIGNMENT: Yes alignment normal Neck/C-Spine: COMMON NORMALS: supple and no JVD GENERAL: Yes normal visual inspection and Yes trachea midline CAROTIDS: Yes normal carotid upstroke Lymph: LYMPHATIC: no lymphadenopathy noted Chest: COMMONS NORMALS: normal inspection of the chest and normal palpation of entire chest wall CHEST: Yes Symmetrical chest wall rise and No tenderness Resp: COMMON NORMALS: clear to auscultation bilaterally (except at bases) EFFORT & INSPECTION: Yes able to speak in complete sentences and No respiratory distress AUSCULTATION: clear to auscultation bilaterally (except at bases), no crackles, no rales, no rhonchi and no wheezes Cardio: COMMON NORMALS: no JVD, regular rate, S1 normal heart sound present, S2 normal heart sound present and Peripheral pulses 2+ throughout PALPATION: normal PMI RATE: regular rate RHYTHM: abnormal rhythm irregularly irregular HEART SOUNDS: S1 normal heart sound present, S2 normal heart sound present, no gallops and Murmur heart sound present systolic BRUITS: no carotid bruits PERIPHERAL PULSES: Peripheral pulses 2+ throughout, radial pulses present, posterior tibial pulses present and dorsalis pedis present GI: COMMON NORMALS: Soft to palpation AUSCULTATION: Yes normoactive bowel sounds PALPATION: Yes Soft to palpation, No Tenderness to palpation present (GI), No Guarding due to palpation present (GI) and No Rigid due to palpation PERCUSSION: tympanic to percussion Extremity: GENERAL: No clubbing, No cyanosis, No edema and No pallor Neuro: COMMON NORMALS: patient oriented x3, CN's II-XII intact bilaterally and no focal motor deficits SENSORIUM/ORIENTATION: Yes alert Psych: COMMON NORMALS: Normal thought process present and speech normal APPEARANCE: Yes well kempt SPEECH: Yes normal speech MOOD & AFFECT: Yes euthymic mood THOUGHT PROCESS: Normal thought process present THOUGHT CONTENT: Yes Normal thought content present Skin: COMMON NORMALS: no rashes or lesions noted GENERAL SKIN EXAM: no rashes or lesions noted Data : 12/26/20 04:16 12/26/20 04:16 A&P Assessment and plan (1) Atrial fibrillation: It seems like she is not tolerating A. fib and I believe she will benefit from attempting rhythm control with amiodarone and RICO/CV. -started on Amiodarone 400 mg TID and continue Xarelto. -continue metoprolol tartrate 100 mg BID and cardizem 120 mg daily. -This was discussed in detail with patient and her daughter. Patient would like to hold off on RICO/cardioversion for now and would want to do it as an outpatient. I try to convince her for RICO cardioversion tomorrow but patient became tearful as there were no one to take care of her animals. Lives by herself and would like to defer RICO cardioversion as an outpatient. -I will get her scheduled for RICO/cardioversion in 2 weeks as an outpatient. -Plan to discharge tomorrow. -Continue amiodarone 400 mg 3 times daily for 5 days after discharge and then 400 mg twice a day x 2 days and then 200 mg daily. -Follow-up with me in [facility] in 1 week. -EKG in 1 week. Status: Acute Qualifiers: Atrial fibrillation type: unspecified Qualified Code(s): I48.91 - Unspecified atrial fibrillation (2) CHF (congestive heart failure), NYHA class III: Low normal LVEF -decompensation in setting of A. fib with RVR -Change to Lasix 40 mg p.o. twice daily along with potassium. Status: Acute Qualifiers: Congestive heart failure type: diastolic Congestive heart failure chronicity: chronic Qualified Code(s): I50.32 - Chronic diastolic (congestive) heart failure (3) Hypertension: Continue current medications. I will make clonidine as needed. Status: Acute Qualifiers: Hypertension type: essential hypertension Qualified Code(s): I10 - Essential (primary) hypertension (4) Hyperlipidemia: Status: Acute Qualifiers: Hyperlipidemia type: unspecified Qualified Code(s): E78.5 - Hyperlipidemia, unspecified Additional A&P Information HYpokalemia: replaced Moderate MR: on last echo, will reevaluate with RICO. Thank you for allowing me to participate in patient's care. Please feel free to call with questions or concerns. Attestations Medical Necessity Statement*: Patient needs hospital stay for medication titration and for decompensated congestive heart failure. Time Spent in Patient Care: Greater than 35 minutes (>than 50% of time spent in counselling and/or direct pt care on unit). Coding Level of Care Code Acute Film Flat Inspector for Jolene Bingham Diagnoses Atrial fibrillation I48.91 Atrial fibrillation type: unspecified CHF (congestive heart failure), NYHA class III I50.32 Congestive heart failure type: diastolic Congestive heart failure chronicity: chronic Hypertension I10 Hypertension type: essential hypertension Hyperlipidemia E78.5 Hyperlipidemia type: unspecified
--- NOTE | 2020-12-26 15:21 | PM.PN ---
Subjective Subjective: Interval history: continues to feel better. He SOB has improved a lot. H/R is well controlled. Vitals and labs have been reviewed. Medications: Reviewed: Yes Vitals/I&O/Wt Last Vital Signs Temp 98.3 F 12/26/20 12:00 Pulse 80 12/26/20 12:00 Resp 18 12/26/20 12:00 BP 98/63 12/26/20 12:00 Pulse Ox 95 12/26/20 12:00 12/26/20 12/26/20 12/26/20 06:59 14:59 22:59 Intake Total 120 / 1060 370.833 / 370.833 Output Total 500 / 2500 1400 / 1400 Balance -380 / -1440 -1029.167 / -1029.167 Physical Exam Const: COMMON NORMALS: patient oriented x3 HENMT: COMMON NORMALS: normocephalic and atraumatic HEAD & SCALP: normocephalic and atraumatic Chest: CHEST: Yes Symmetrical chest wall rise Resp: COMMON NORMALS: normal respiratory effort, No retractions, No use of accessory muscles and clear to auscultation bilaterally EFFORT & INSPECTION: Yes symmetric chest movement AUSCULTATION: clear to auscultation bilaterally Cardio: COMMON NORMALS: No gallops present (Cardio), No murmurs present (Cardio), No rub (Cardio) and Peripheral pulses 2+ throughout PERIPHERAL PULSES: Peripheral pulses 2+ throughout OTHER: S1S2 of variable intensity. GI: COMMON NORMALS: Normal to inspection, nondistended, normoactive bowel sounds present, Soft to palpation, non-tender, No hepatosplenomegaly present and no masses AUSCULTATION: Yes normoactive bowel sounds PALPATION: Yes Soft to palpation and Yes No hepatosplenomegaly present RECTAL EXAM: deferred Extremity: COMMON NORMALS: no clubbing, cyanosis or edema and no pedal edema Neuro: COMMON NORMALS: patient oriented x3 Data : 12/26/20 04:16 12/26/20 04:16 A&P Assessment and plan (1) Atrial fibrillation with RVR: Symptomatic A. fib with RVR - Off cardizem gtt - Rate controlled - Metoprolol .T : 100 MG po q12 h Daily - Cardizem CD 120 MG PO Daily - Amiodarone 400 MG TID - Continue xarelto - Cardiology Rec appreciated - ECHO - : Normal: L.V Size, LVEF: 51 % , No RWMA, Abnormal diastolic function. - Stress Test : (/) : Small sized perfusion abnormality of mild severity of mid to apical inferior wall on rest images with somewhat improved tracer uptake on stress images. This very likely represents attenuation artifact. -Appreciate Cardiology Rec Status: Acute (2) Hypokalemia: BMP in am Replace as needed Status: Acute (3) Hypertension: - Metoprolol .T : 100 MG po q12 h Daily - Cardizem CD 120 MG PO Daily - Clonidine 0.1 MG PO BID PRN Status: Acute Qualifiers: Hypertension type: essential hypertension Qualified Code(s): I10 - Essential (primary) hypertension (4) CVA (cerebral vascular accident): Status: Acute Additional A&P Information Diastolic congestive heart failure: -Daily weight -lasix to 40 mg I.V Q12 H Daily changed to Lasix 40 mg po q12 h ( 12/26) -Monitor BMP -Monitor Mg >2 k> 4 Essential hypertension: - Continue current management DVT prophylaxis . on Xarelto Cardiac diet Full code Attestations Medical Necessity Statement*: Patient needs to be in hospital for the management H/F,A.fib and the need for medical optimization Coding Level of Care Code Acute Divorce Lawyer for g Fwd Diagnoses Atrial fibrillation with RVR I48.91 Hypokalemia E87.6 Hypertension I10 Hypertension type: essential hypertension CVA (cerebral vascular accident) I63.9
[2020-12-26] MEDS: FUROsemide 40 mg Tablet PO (16:39)
[2020-12-26] MEDS: rivaroxaban 10 mg Tablet 20 MG PO (20:59)
[2020-12-26] MEDS: atorvastatin 40 mg Tablet 80 MG PO (20:59)
[2020-12-27] VITALS (41 sets, daily range): BP systolic 102–138; BP diastolic 58–87; PULSE 61–92; RESP 4–29; TEMP 36.5–36.8; O2SAT 95–98
--- NOTE | 2020-12-27 05:38 | PC.NURSE ---
NURSE NOTE: SHIFT SUMMARY; PT ALERT AND ORIENTED X4; MOVES ALL EXTREMITIES AND FOLLOWS COMMANDS. RESTED WITH EYES CLOSED MOST OF SHIFT. DENIES PAIN. ALL VS AND ASSESSMENTS CHARTED. NO DISTRESS NOTED AT THIS TIME.
[2020-12-27 05:40] LABS: Basophils % 0.6 %; Eosinophils # 0.1 10^3/uL (0.0-0.8); Eosinophils % 2.4 %; Hematocrit 39.6 % (37.0-47.0); Hemoglobin 12.5 g/dL (11.5-15.3); Lymphocytes # 1.4 10^3/uL (0.8-4.8); Lymphocytes % 25.2 %; Mean Corpuscular HGB Conc 31.6 g/dL (30.0-36.0); Mean Corpuscular Hemoglobin 27.9 pg (28.0-34.0); Mean Corpuscular Volume 88.4 fL (81-99); Mean Platelet Volume 12.3 fL (7.4-10.4); Monocytes # 0.8 10^3/uL (0.2-0.9); Monocytes % 14.7 %; Neutrophils # 3.07 10^3/uL (1.8-7.7); Neutrophils % 56.9 %; Nucleated Red Blood Cells % 0 %; Platelet Count 219 10^3/cmm (130-400); Red Blood Count 4.48 10^6/uL (4.1-5.3); Red Cell Distribution Width 14.4 % (12.1-15.1); White Blood Count 5.4 10^3/uL (4.0-10.0)
[2020-12-27 06:04] LABS: Alanine Aminotransferase 31 U/L (0-33); Albumin Level 3.7 g/dL (3.5-5.2); Alkaline Phosphatase 92 IU/L (35-105); Anion Gap 11.8 (5-19); Aspartate Amino Transferase 32 U/L (0-32); Blood Urea Nitrogen 24 mg/dL (8-23); Calcium 9.2 mg/dL (8.5-10.5); Carbon Dioxide 31 mmol/L (22-29); Chloride 99 mmol/L (98-107); Creatinine Clr Calc Pharmacy 47.1943; Globulin 3.5 g/dL (1.3-4.6); Glucose 121 mg/dL (65-115); Osmolality Calculated 291 mOsm/kg (285-295); Potassium 3.8 mmol/L (3.5-5.1); Sodium 138 mmol/L (136-145); Total Bilirubin 0.5 mg/dL (0.15-1.2); Total Protein 7.2 g/dL (6.6-8.7)
[2020-12-27 06:17] LABS: NT Pro B Type Natriuretic Pept 1300 pg/mL (0-450)
[2020-12-27] MEDS: FUROsemide 40 mg Tablet PO (09:38)
[2020-12-27] MEDS: aspirin 81 mg EC Tablet PO (09:38)
[2020-12-27] MEDS: amiodarone 200 mg Tablet 400 MG PO (09:38)
[2020-12-27] MEDS: famotidine 20 mg Tablet 10 MG PO (09:40)
[2020-12-27] MEDS: metoprolol tartrate 50 mg Tablet 100 MG PO (09:41)
[2020-12-27] MEDS: potassium chloride ER 20 mEq Tablet PO (09:42)
--- NOTE | 2020-12-27 09:58 | P.PN_ITS ---
Subjective Subjective: Interval history: No acute event overnight. She remains in atrial fibrillation with controlled ventricular response She feels better. Medications: Reviewed: Yes Medication Review Details: Current Medications Amiodarone HCl (Amiodarone 200 Mg Tablet) 400 mg PO TID [facility] Last Admin: 12/27/20 09:38 Dose: 400 mg Documented by: Aspirin (Aspirin 81 Mg Ec Tablet) 81 mg PO DAILY@09 [facility] Last Admin: 12/27/20 09:38 Dose: 81 mg Documented by: Atorvastatin Calcium (Atorvastatin 40 Mg Tablet) 80 mg PO BEDTIME@21 [facility] Last Admin: 12/26/20 20:59 Dose: 80 mg Documented by: Clonidine HCl (Clonidine 0.1 Mg Tablet) 0.1 mg PO BID PRN PRN Reason: HYPERTENSION Diltiazem HCl (Diltiazem Er (24hr) 120 Mg Capsule) 120 mg PO DAILY [facility] Last Admin: 12/26/20 08:31 Dose: 120 mg Documented by: Famotidine (Famotidine 20 Mg Tablet) 10 mg PO DAILY@0830 [facility] Last Admin: 12/27/20 09:40 Dose: 10 mg Documented by: Furosemide (Furosemide 40 Mg Tablet) 40 mg PO BID@08,16 [facility] Last Admin: 12/27/20 09:38 Dose: 40 mg Documented by: Metoprolol Tartrate (Metoprolol Tartrate 50 Mg Tablet) 100 mg PO BID@0900,2100 [facility] Last Admin: 12/27/20 09:41 Dose: 100 mg Documented by: Ondansetron HCl (Ondansetron 2 Mg/Ml Sdv 2 Ml) 4 mg IVP Q2M PRN PRN Reason: NAUSEA Ondansetron HCl (Ondansetron 2 Mg/Ml Sdv 2 Ml) 4 mg IVP Q2M PRN PRN Reason: NAUSEA Potassium Chloride (Potassium Chloride Er 20 Meq Tablet) 20 meq PO BID [facility] Last Admin: 12/27/20 09:42 Dose: 20 meq Documented by: Regadenoson (Regadenoson 0.4 Mg/5 Ml Syringe) 0.4 mg IVP ONCE PRN PRN Reason: Lexiscan Stress Test Rivaroxaban (Rivaroxaban 10 Mg Tablet) 20 mg PO DAILY@2100 [facility] Last Admin: 12/26/20 20:59 Dose: 20 mg Documented by: Vitals/I&O/Wt Last Vital Signs Temp 97.7 F 12/27/20 08:00 Pulse 78 12/27/20 09:30 Resp 18 12/27/20 09:30 BP 138/87 12/27/20 09:30 Pulse Ox 95 12/27/20 05:22 12/26/20 12/27/20 12/27/20 22:59 06:59 14:59 Intake Total 480 / 850.833 150 / 1000.833 Output Total 300 / 1700 1000 / 2700 Balance 180 / -849.167 -850 / -1699.167 Physical Exam Const: COMMON NORMALS: no acute distress, patient oriented x3 and alert GENERAL APPEARANCE: cooperative, comfortable, well kempt and well hydrated HENMT: COMMON NORMALS: hearing grossly normal bilaterally and external ears normal FACE & SINUS: normal facial exam EXTERNAL EAR: Yes external ears normal MOUTH: lip normal Eye: COMMON NORMALS: EOMs intact bilaterally and no scleral icterus GENERAL EYE: appearance normal, both eyes and all related structures ALIGNMENT: Yes alignment normal Neck/C-Spine: COMMON NORMALS: supple and no JVD GENERAL: Yes normal visual inspection and Yes trachea midline CAROTIDS: Yes normal carotid upstroke Lymph: LYMPHATIC: no lymphadenopathy noted Chest: COMMONS NORMALS: normal inspection of the chest and normal palpation of entire chest wall CHEST: Yes Symmetrical chest wall rise and No tenderness Resp: COMMON NORMALS: clear to auscultation bilaterally EFFORT & INSPECTION: Yes able to speak in complete sentences and No respiratory distress AUSCULTATION: clear to auscultation bilaterally, no crackles, no rales, no rhonchi and no wheezes Cardio: COMMON NORMALS: no JVD, regular rate, S1 normal heart sound present, S2 normal heart sound present and Peripheral pulses 2+ throughout PALPATION: normal PMI RATE: regular rate RHYTHM: abnormal rhythm irregularly irr egular HEART SOUNDS: S1 normal heart sound present, S2 normal heart sound present, no gallops and Murmur heart sound present systolic BRUITS: no c arotid bruits PERIPHERAL PULSES: Peripheral pulses 2+ throughout, radial pulses present, posterior tibial pulses present and dorsalis pedis present GI: COMMON NORMALS: Soft to palpation AUSCULTATION: Yes normoactive bowel sounds PALPATION: Yes Soft to palpation, No Tenderness to palpation present (GI), No Guarding due to palpation present (GI) and No Rigid due to palpation PERCUSSION: tympanic to percussion Extremity: GENERAL: No clubbing, No cyanosis, No edema and No pallor Neuro: COMMON NORMALS: patient oriented x3, CN's II-XII intact bilaterally and no focal motor deficits SENSORIUM/ORIENTATION: Yes alert Psych: COMMON NORMALS: Normal thought process present and speech normal APPEARANCE: Yes well kempt SPEECH: Yes normal speech MOOD & AFFECT: Yes euthymic mood THOUGHT PROCESS: Normal thought process present THOUGHT CONTENT: Yes Normal thought content present Skin: COMMON NORMALS: no rashes or lesions noted GENERAL SKIN EXAM: no rashes or lesions noted Data : 12/27/20 05:18 12/27/20 05:18 A&P Assessment and plan (1) Atrial fibrillation: It seems like she is not tolerating A. fib and I believe she will benefit from attempting rhythm control with amiodarone and RICO/CV. -started on Amiodarone 400 mg TID and continue Xarelto. -continue metoprolol tartrate 100 mg BID and cardizem 120 mg daily. -This was discussed in detail with patient and her daughter. Patient would like to hold off on RICO/cardioversion for now and would want to do it as an outpatient. I try to convince her for RICO cardioversion tomorrow but patient became tearful as there were no one to take care of her animals. Lives by herself and would like to defer RICO cardioversion as an outpatient. -I will get her scheduled for RICO/cardioversion in 2 weeks as an outpatient. -Plan to discharge tomorrow. -Continue amiodarone 400 mg 3 times daily for 5 days after discharge and then 400 mg twice a day x 2 days and then 200 mg daily. Stop cardizem. continue metoprolol at present dose. -Follow-up with me in [facility] in 1 week. -EKG in 1 week. Status: Acute Qualifiers: Atrial fibrillation type: unspecified Qualified Code(s): I48.91 - Unspecified atrial fibrillation (2) CHF (congestive heart failure), NYHA class III: Low normal LVEF -decompensation in setting of A. fib with RVR -Change to Lasix 60 mg daily along with potassium 20 meq BID on discharge. Status: Acute Qualifiers: Congestive heart failure type: diastolic Congestive heart failure chronicity: chronic Qualified Code(s): I50.32 - Chronic diastolic (congestive) heart failure (3) Hypertension: Continue current medications. I will make clonidine as needed on discharge. Status: Acute Qualifiers: Hypertension type: essential hypertension Qualified Code(s): I10 - Essential (primary) hypertension (4) Hyperlipidemia: Status: Acute Qualifiers: Hyperlipidemia type: unspecified Qualified Code(s): E78.5 - Hyperlipidemia, unspecified Additional A&P Information HYpokalemia: replaced Moderate MR: on last echo, will reevaluate with RICO. Thank you for allowing me to participate in patient's care. Please feel free to call with questions or concerns. Attestations Medical Necessity Statement*: stable to be discharged home today Time Spent in Patient Care: Greater than 35 minutes (>than 50% of time spent in counselling and/or direct pt care on unit) . Coding Level of Care Code Acute Bottle And Glass Inspector for Jolene Bingham Diagnoses Atrial fibrillation I48.91 Atrial fibrillation type: unspecified CHF (congestive heart failure), NYHA class III I50.32 Congestive heart failure type: diastolic Congestive heart failure chronicity: chronic Hypertension I10 Hypertension type: essential hypertension Hyperlipidemia E78.5 Hyperlipidemia type: unspecified
--- NOTE | 2020-12-27 11:02 | P.DS_ITS ---
Discharge Providers Date of Admission: 12/23/20 16:25 Date of Discharge: December 27, 2020 Attending Provider at Admission: Francisco Minor Attending Provider at Discharge: Rojelio Rabago MD Primary Care Provider: Yue Thompson MD Diagnoses at Discharge Discharge Diagnosis (1) Atrial fibrillation: Status: Chronic Qualifiers: Atrial fibrillation type: unspecified Qualified Code(s): I48.91 - Unspecified atrial fibrillation (2) CHF (congestive heart failure), NYHA class III: Status: Chronic Qualifiers: Congestive heart failure chronicity: chronic Congestive heart failure type: diastolic Qualified Code(s): I50.32 - Chronic diastolic (congestive) heart failure (3) Hypertension: Status: Chronic Qualifiers: Hypertension type: essential hypertension Qualified Code(s): I10 - Essential (primary) hypertension Reason for Visit Reason for Visit: SOB, slight chest pain Hospital Course Hospital Course 75 year old female with PMHx of HTN, h/o breast cancer s/p surgery and chemotherapy in for 6 month She has been hospitalized twice recently with A. fib with RVR and decompensated congestive heart failure. Her verapamil was discontinued and she was transitioned to Cardizem.She was also started on Lasix 20 mg twice a day with potassium along with chlorthalidone.She was also on metoprolol tartrate 50 mg twice a day and clonidine 0.1 mg twice a day.Losartan was stopped because of complaints of cough. She was admitted again with worsening SOB and palpitations/heart racing that started Thursday and persisted on Thursday and hence she decided to come to the hospital. Occasional chest pains in this setting.She was admitted for the management of Atrial fibrillation with RVR initially on Cardizem drip and her Metoprolol was increased to 100 mg PO Q12 H daily, ultimately cardiology came on board for the management of recurrent A. fib with RVR and decompensated congestive heart failure,she underwent stress test which was unremarkable. Cardiology was of the opinion that she will benefit from attempting rhythm control with amiodarone and RICO/CV. She was started on amidarone and will continue amiodarone 400 mg 3 times daily for 5 days after discharge and then 400 mg twice a day x 2 days and then 200 mg daily.cardizem was stopped.Continuing increased dose of metoprolol tartrate 100 mg BID.Cardiology will get her scheduled for RICO/cardioversion in 2 weeks as an outpatient.She was also discharged on increased dose of lasix ( 60 mg po daily ). Patient resonded well to the above medical management and was discharged in stable condition.She will continue to follow her PCP as well as cardiology as outpatient. Physical Exam Const: COMMON NORMALS: patient oriented x3 HENMT: COMMON NORMALS: normocephalic and atraumatic HEAD & SCALP: normocephalic and atraumatic Chest: CHEST: Yes Symmetrical chest wall rise Resp: COMMON NORMALS: normal respiratory effort, No retractions, No use of accessory muscles and clear to auscultation bilaterally EFFORT & INSPECTION: Yes symmetric chest movement AUSCULTATION: clear to auscultation bilaterally Cardio: COMMON NORMALS: No gallops present (Cardio), No murmurs present (Cardio), No rub (Cardio) and Peripheral pulses 2+ throughout PERIPHERAL PULSES: Peripheral pulses 2+ throughout OTHER: S1S2 of variable intensity. GI: COMMON NORMALS: Normal to inspection, nondistended, normoactive bowel sounds present, Soft to palpation, non-tender, No hepatosplenomegaly present and no masses AUSCULTATION: Yes normoactive bowel sounds PALPATION: Yes Soft to palpation and Yes No hepatosplenomegaly present RECTAL EXAM: deferred Extremity: COMMON NORMALS: no clubbing, cyanosis or edema and no pedal edema Neuro: COMMON NORMALS: patient oriented x3 Discharge Data Data Completed and Pending: Completed Studies During Hospitalization Category Date Time Status Cardiac Stress Te st MIBI [Sestamibi Stress Test Reque st Exams 12/25/20 08:55 Completed ] Routine XR chest 1V betty ble [id number] Stat Exams 12/22/20 15:05 Completed NM cindy perf SPECT r/s* [id number] Routin e Nuc Med 12/25/20 20:39 Completed Pending at discharge Category Date Time Status Schedule Transeso phageal Echo Routi ne Exams 12/26/20 16:31 Ordered Sestamibi Stress Test Request Routi ne Exams 12/24/20 20:39 Stop Req Labs from last 24 hours 12/27/20 12/27/20 12/27/20 05:18 05:18 05:18 WBC 5.4 RBC 4.48 Hgb 12.5 Hct 39.6 MCV 88.4 MCH 27.9 L MCHC 31.6 RDW 14.4 Plt Count 219 MPV 12.3 H Neut % (Auto) 56.9 Lymph % (Auto) 25.2 [place] % (Auto) 14.7 Eos % (Auto) 2.4 Baso % (Auto) 0.6 Neut # (Auto) 3.07 Lymph # (Auto) 1.4 [place] # (Auto) 0.8 Eos # (Auto) 0.1 Baso # (Auto) 0.0 Nucleated RBC % (a uto) 0 Nucleated RBCs # 0.0 Sodium 138 Potassium 3.8 Chloride 99 Carbon Dioxide 31 H Anion Gap 11.8 BUN 24 H Creatinine 1.1 H GFR Calculation Not Reportable Glucose 121 H Calculated Osmolal ity 291 Calcium 9.2 Magnesium 2.0 Total Bilirubin 0.5 AST 32 ALT 31 Alkaline Phosphata se 92 NT-Pro-B Natriuret Pep 1300 H Total Protein 7.2 Albumin 3.7 Globulin 3.5 Vitals: Last Vital Signs Temp 97.7 F 12/27/20 08:00 Pulse 78 12/27/20 09:30 Resp 18 12/27/20 09:30 BP 138/87 12/27/20 09:30 Pulse Ox 95 12/27/20 05:22 Discharge Plan Discharge Patient Disposition: Home Condition: Stable Prescriptions: New Klor-Con 20 mEq packet 20 meq PO BID Qty: 30 RF: 0 Lasix 40 mg tablet 60 mg PO DAILY Qty: 30 RF: 0 amiodarone 400 mg tablet 400 mg PO TID 5 Days Qty: 20 RF: 0 amiodarone 200 mg tablet 200 mg PO DAILY Qty: 30 RF: 0 clonidine HCl 0.1 mg tablet 0.1 mg PO BID PRN (Reason: HTN) Qty: 30 RF: 0 Continued famotidine 10 mg tablet 10 - 20 mg PO DAILY@829 RF: 0 atorvastatin 80 mg tablet 80 mg PO BEDTIME@ Qty: 90 RF: 2 aspirin 81 mg tablet,delayed release (DR/EC) 81 mg PO DAILY@ RF: 0 chlorthalidone 25 mg tablet 25 mg PO DAILY@ RF: 0 Xarelto 20 mg tablet 20 mg PO DAILY@2099 RF: 0 Changed metoprolol tartrate 50 mg tablet 100 mg PO BID@0900,2100 Qty: 180 RF: 3 Discontinued furosemide 20 mg tablet 20 mg PO Q12H 30 Days Qty: 60 RF: 2 clonidine HCl 0.1 mg tablet 0.1 mg PO BID@,21 RF: 0 diltiazem HCl 240 mg capsule,extended release 24hr See Rx Instructions .ROUTE .COMPLEX RF: 0 potassium chloride [Klor-Con 10] 20 mEq tablet extended release 20 meq PO DAILY@08 RF: 0 Discharge Orders: Discharge Order (Routine); Ordered 12/27/20 Ordered By: Rojelio Rabago Referrals: Jody Solis MD [Physician] - 01/10/21 2:30 pm (You have a cardiology followup with Dr. Solis at [facility] on January 10 at 2:30pm) Yue Thompson MD [Primary Care Provider] - 01/07/21 11:20 am (You have a hospital followup with Dr. Thompson at her office in January 07 at 11:20am ) Discharge Diet: Low Salt Discharge Activity: Resume usual activity Patient Instructions: Clonidine (By mouth), Furosemide (By mouth), Potassium Chloride (By mouth), Amiodarone (By mouth) Discharge Attestations Time Spent in Discharge Care*: greater than 30 min Specific Discharge Activities: educating patient, educating and/or supporting family/caregiver, discussing with pcp/other providers, discussing with case technician/social workers/dc planners, documenting/other paperwork and evaluating patient/reviewing data Status at Discharge: Cognitive status at discharge: cognitively intact , Behavioral status at discharge: cooperative , Functional status at discharge: independent ambulation Overall status at discharge: patient is back to baseline Quality Metrics Clinical Quality Measures During this hospital stay, did patient experience: None Coding Level of Care Code Acute Shift Supervisor Melting for [facility] Fwd Exam Detailed Diagnoses Atrial fibrillation I48.91 Atrial fibrillation type: unspecified CHF (congestive heart failure), NYHA class III I50.32 Congestive heart failure chronicity: chronic Congestive heart failure type: diastolic Hypertension I10 Hypertension type: essential hypertension
--- NOTE | 2020-12-27 11:18 | PC.CHAP ---
Pastoral Care Encounter/Spiritual Assessment Type of Contact [] Declined plate glass grinder visit [] Patient/Family/Request visit [] Outpatient visit [] Follow-up visit [] Physician referral [] Code/Alert [X] Routine visit [] Staff referral [] Actively dying [] Patient sleeping [] Family support [] [] Out of room [] Palliative care [] [x] Receiving care in room [] Pre-surgical visit [] Trauma [] Long length of stay [] ICU visit [] Other: Relational/Emotional Strength [x] Patient feels connected with others/family/visitors/staff [] Distress [] Loneliness/isolation [] Abandonment Spirituality of Patient [x] Person of Tiff [] Attends Nondenominational of their Tiff [x] Believes in Prayer [] Reads Bible or Presybeterian materials [] There are Spiritual issues to be addressed Scrap Bunch Maker Interventions [x] Prayer [x] Active listening [x] Non-anxious presence [x] Spiritual/emotional support [] Crisis/trauma care [x] Spiritual counseling [] Bereavement support [] Provided bereavement packet [] Provided Bible/devotional materials [] Provided toy/stuffed animal, coloring book to patient or family member [] Provided Communion [] Anointing/[place] [] Salvation [x] Completed spiritual assessment [] Other: Impact on Illness or Injury [] Angry [] Fearful [] Anxious [] Often cries [] Exhaustion [] Unable to work [] Unable to attend bahai [] Unable to walk/stand [] Unable to read [] Unable to drive [] Unable to eat/drink [] Unable to sleep [] Unable to be with family [] Patient intubated [] Other: Summary Senior has heart problems and elevated BP, going home to be with family Time spent with patient 10 mins
--- NOTE | 2020-12-27 13:55 | PC.NURSE ---
Pt discharged home. IV removed no redness or swelling noted. Pts discharge instructions given along with prescriptions and follow up appointment. Pt had no c/o of pain or discomfort at the time of discharge. Pt transferred out via wheelchair accompanied by staff.
== END 2020-12-27 13:30 | disposition home or self-care (01) | DRG 308 ==
LOC: ER 15:33 → CSU 18:21
PROVIDERS: Internal Medicine; Internal Medicine Cardiovascular Disease; Admitting Provider Hospitalist; Emergency Provider Family Medicine; PCP Family Medicine; Visit Provider Internal Medicine
DX: I48.20 Chronic atrial fibrillation, unspecified (principal); I50.33 Acute on chronic diastolic (congestive) heart failure; I11.0 Hypertensive heart disease with heart failure; Z79.01 Long term (current) use of anticoagulants; K21.9 Gastro-esophageal reflux disease without esophagitis; Z85.3 Personal history of malignant neoplasm of breast; Z90.12 Acquired absence of left breast and nipple; L93.1 Subacute cutaneous lupus erythematosus; E87.6 Hypokalemia; E78.5 Hyperlipidemia, unspecified; Z92.21 Personal history of antineoplastic chemotherapy; Z79.82 Long term (current) use of aspirin
CPT/HCPCS: 12345; 36415; 71045; 78452; 80048; 80053; 81003; 83735; 83880; 84484; 85025; 93005; 93017; 99282; A9500; G0378; J1940; J2785; J3480; J3490

== ENCOUNTER → 2021-01-16 16:43 | Outpatient (BNVA) | payer MEDICARE, SELFPAY | PROVIDERS: PCP Family Medicine; Visit Provider Internal Medicine Cardiovascular Disease | DX: I48.0 Paroxysmal atrial fibrillation (principal); I50.32 Chronic diastolic (congestive) heart failure; E78.5 Hyperlipidemia, unspecified; I47.2 Ventricular tachycardia; L93.1 Subacute cutaneous lupus erythematosus; I11.0 Hypertensive heart disease with heart failure | CPT/HCPCS: 80048 ==

== ENCOUNTER → 2021-01-24 17:01 | Outpatient (BNVA) | payer MEDICARE, SELFPAY | PROVIDERS: PCP Family Medicine; Visit Provider Internal Medicine Cardiovascular Disease | DX: I50.32 Chronic diastolic (congestive) heart failure (principal) | CPT/HCPCS: 80048; 83735 ==

== ENCOUNTER → 2021-11-13 15:25 | Outpatient (BNVA) | payer MEDICARE, SELFPAY | PROVIDERS: PCP Family Medicine; Visit Provider Internal Medicine Cardiovascular Disease | DX: Z51.81 Encounter for therapeutic drug level monitoring (principal); Z79.899 Other long term (current) drug therapy | CPT/HCPCS: 80053; 84443; 85025 ==

== ENCOUNTER 2022-01-03 10:46 | Observation (INO) | payer MEDICARE, SELFPAY ==
[2022-01-03] VITALS (15 sets, daily range): BP systolic 149–208; BP diastolic 61–97; PULSE 74–93; RESP 17–35; TEMP 36.4–36.6; O2SAT 2–97; BMI 28.1; BMI 31.2
--- NOTE | 2022-01-03 10:58 | W.ED.SOB ---
HPI - SOB/Dyspnea General: Chief Complaint: Shortness of Breath/Dyspnea Stated Complaint: SOB/ HTN Time Seen by Provider: 01/03/22 10:48 History of Present Illness: HPI Narrative: Mr. Mulligan is a 76-year-old lady with significant past medical history of CHF, hypertension, hyperlipidemia, atrial fibrillation on anticoagulation who presents the emergency department due to shortness of breath. She reports a minimally productive cough approximately 1.5 weeks ago without other associated infectious symptoms. For the past few days she has noticed more shortness of breath especially when lying flat at night and has had difficulty sleeping as she has had to sleep propped up. Today she noticed more significant shortness of breath as well as high blood pressure. She has taken her antihypertensives this morning however her blood pressure still much higher than normal. Overall the course of symptoms has been worsening. Intensity is moderate to severe. She is now requiring oxygen and is tachypneic despite oxygen, no oxygen use at baseline. She denies sick contacts. She is unable to receive COVID-19 vaccine. No other specific changes, exacerbating, or alleviating factors identified. Pertinent past history: congestive heart failure and other Onset (ago): day(s) Timing: progressively worsening Severity: moderate Exacerbating factors: lying flat and exertion Relieving factors: nothing Known history of: congestive heart failure and other Associated symptoms: Reports chest congestion and cough; Deny abdominal pain, nausea, palpitations or vomiting Review of Systems General: Reports: 10 or more systems reviewed and unremarkable except in HPI and below Card: Denies: palpitations Resp: Reports: chest congestion GI: Denies: abdominal pain, nausea or vomiting [facility] ED PFSH: Medical History Acid reflux Atrial fibrillation Atrial fibrillation with RVR Breast cancer CHF (congestive heart failure), NYHA class III CVA (cerebral vascular accident) Elevated serum creatinine Elevated serum creatinine High risk medication use Hyperlipidemia Hypertension Hypokalemia Other 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 Surgical History H/O: hysterectomy History of inguinal hernia repair History of left mastectomy Family History Other Hyperlipidemia Psychiatric illness Denies family history of Rheumatoid arthritis Lupus Social History Second hand smoke exposure: No Alcohol intake: never Lives independently: Yes Household members: none Current occupational status: employed Current occupation: [employer] History of recent travel: No Current gender identity: Female Physical Exam Const: COMMON NORMALS: alert GENERAL APPEARANCE: cooperative, well developed and ill appearing (Somewhat) HENMT: COMMON NORMALS: normocephalic and atraumatic HEAD & SCALP: normocephalic and atraumatic THROAT: posterior oropharynx normal Eye: COMMON NORMALS: conjunctivae normal CONJUNCTIVA: Yes conjunctivae normal SCLERA: sclerae normal Neck/C-Spine: COMMON NORMALS: supple GENERAL: Yes trachea midline Resp: EFFORT & INSPECTION: Yes tachypneic AUSCULTATION: rhonchi lower bilaterally Cardio: COMMON NORMALS: regular rate and regular rhythm RATE: regular rate RHYTHM: regular rhythm OTHER: No peripheral edema GI: COMMON NORMALS: Soft to palpation PALPATION: Yes Soft to palpation and No Tenderness to palpation present (GI) PERCUSSION: normal to percussion Extremity: GENERAL: Yes normal exam except as noted and No edema Neuro: COMMON NORMALS: moves all extremities SENSORIUM/ORIENTATION: Yes alert and No Orientation impaired Psych: COMMON NORMALS: mental status grossly normal and Normal thought process present THOUGHT PROCESS: Normal thought process present Course ED course: - Patient was seen and evaluated by me at bedside - Patient placed on cardiac monitors, IV access obtained - Initial evaluation notable for exam as above, new oxygen requirement with respiratory distress - RT treatment ordered - Labs notable for no leukocytosis. Metabolic panel with hypokalemia, replenishment ordered. The patient has elevated delta troponin and a mildly elevated BNP. - Aspirin given - Imaging notable for interstitial thickening and emphysema. - Patient is on Xarelto and has not missed any doses, based on clinical history provided by patient I do not feel that advanced imaging including CT scanning is required from the emergency department. May be required if deemed appropriate by admitting physician. - Upon serial reexamination after treatment the patient was mildly improved though patient remains requiring new oxygen - Based on patient history, evaluation, labs, and imaging as interpreted the most likely cause of the patient's condition is NSTEMI, hypoxemia. - The results of ED evaluation were discussed with the patient including plan for admission due to requirement for level of care not available if discharged to prevent significant worsening/deterioration. - Admitting service was contacted and Dr [] with [] agreed to admit the patient - Patient was admitted without further deterioration or significant events. Note: Click bubbles or prepopulated mao in note writing are used for assistance with data collection and billing and are inherently more limited than narrative and other text portions of this note. Please use narrative for additional clinical history and defer to narrative/free test for any case of contradictory information. If information appears in only free text or click bubble it should be considered present or absent as reported. Please contact note senior technical writer for clarifications of clinical information or contradictory information. MDM is a brief summary, contradictory or erroneous seeming information should be clarified and full note should be reviewed. Vital Signs: Vital signs: Vital Signs Temperature 69.7 F L 01/06/22 12:12 Pulse Rate 62 01/06/22 13:03 Respiratory Rate 16 01/06/22 13:03 Blood Pressure 135/66 01/06/22 13:03 Pulse Oximetry 93 01/06/22 13:03 MDM - SOB/Dyspnea Medical Decision Making 76-year-old lady with no history of lung disease presenting with hypoxemia and respiratory distress. Patient found to have NSTEMI and admitted for further evaluation and definitive treatment. Medical Records I reviewed the patient's medical records. Lab Data I reviewed the patient's lab results. : 01/04/22 05:15 01/06/22 04:18 Labs/Radiology: Radiology Impressions Chest X-Ray 01/03/22 11:07 IMPRESSION: 1. Mild progression of interstitial thickening, likely due to pneumonitis. No dense consolidation or pneumonia. 2. Emphysema. Laboratory Results WBC 7.1 10^3/uL (4.0-10.0) 01/03/22 11:45 RBC 4.22 10^6/uL (4.1-5.3) 01/03/22 11:45 Hgb 12.3 g/dL (11.5-15.3) 01/03/22 11:45 Hct 38.4 % (37.0-47.0) 01/03/22 11:45 MCV 91.0 fl (81-99) 01/03/22 11:45 MCH 29.1 pg (28.0-34.0) 01/03/22 11:45 MCHC 32.0 g/dL (30.0-36.0) 01/03/22 11:45 RDW 14.4 % (12.1-15.1) 01/03/22 11:45 Plt Count 184 10^3/cmm (130-400) 01/03/22 11:45 MPV 12.9 fL (7.4-10.4) H 01/03/22 11:45 Neut % (Auto) 89.7 % 01/03/22 11:45 Lymph % (Auto) 5.8 % 01/03/22 11:45 White % (Auto) 3.5 % 01/03/22 11:45 Eos % (Auto) 0.3 % 01/03/22 11:45 Baso % (Auto) 0.4 % 01/03/22 11:45 Neut # (Auto) 6.39 10^3/uL (1.8-7.7) 01/03/22 11:45 Lymph # (Auto) 0.4 10^3/uL (0.8-4.8) L 01/03/22 11:45 White # (Auto) 0.3 10^3/uL (0.2-0.9) 01/03/22 11:45 Eos # (Auto) 0.0 10^3/uL (0.0-0.8) 01/03/22 11:45 Baso # (Auto) 0.0 10^3/uL (0.0-0.1) 01/03/22 11:45 Nucleated RBC % (auto) 0 % 01/03/22 11:45 Nucleated RBCs # 0.0 /100WBC 01/03/22 11:45 Specimen Type Arterial 01/03/22 11:25 Sample Site Brachial, right 01/03/22 11:25 ABG pH 7.46 (7.35-7.45) H 01/03/22 11:25 ABG pCO2 43.9 mmHg (35-45) 01/03/22 11:25 ABG pO2 71.0 mmHg (80.0-100.0) L 01/03/22 11:25 ABG HCO3 31.4 mmol/L (22-26) H 01/03/22 11:25 ABG Base Excess 6.8 mmol/L (-2.0-2.0) H 01/03/22 11:25 Yadiel Test N/a 01/03/22 11:25 Hematocrit 39.0 % (37-47) 01/03/22 11:25 O2 Delivery Device Nc 01/03/22 11:25 O2 Liters/Min 3.0 % 01/03/22 11:25 FiO2 32.0 % 01/03/22 11:25 Sqe ID Amh 01/03/22 11:25 Sodium 136 mmol/L (136-145) 01/03/22 11:45 Potassium 2.9 mmol/L (3.5-5.1) L 01/03/22 11:45 Chloride 95 mmol/L (98-107) L 01/03/22 11:45 Carbon Dioxide 26 mmol/L (22-29) 01/03/22 11:45 Anion Gap 17.9 (5-19) 01/03/22 11:45 BUN 13 mg/dL (8-23) 01/03/22 11:45 Creatinine 1.0 mg/dL (0.5-0.9) H 01/03/22 11:45 GFR Calculation Not Reportable 01/03/22 11:45 Glucose 119 mg/dL (65-115) H 01/03/22 11:45 Calculated Osmolality 283 mOsm/kg (285-295) L 01/03/22 11:45 Calcium 8.9 mg/dL (8.5-10.5) 01/03/22 11:45 Magnesium 1.9 mg/dL (1.7-2.3) 01/03/22 11:45 Total Bilirubin 0.7 mg/dL (0.15-1.2) 01/03/22 11:45 AST 19 U/L (0-32) 01/03/22 11:45 ALT 18 U/L (0-33) 01/03/22 11:45 Alkaline Phosphatase 115 IU/L (35-105) H 01/03/22 11:45 Troponin T Baseline 48 ng/L (0-10) H 01/03/22 11:45 Troponin T 120 Minute 84.22 ng/L (0-10) H 01/03/22 13:50 Delta Troponin T 36.22 ABS# (0-10) H* 01/03/22 13:50 C-Reactive Protein 7.1 mg/L (0.0-4.9) H 01/03/22 11:45 NT-Pro-B Natriuret Pep 1438 pg/mL (0-450) H 01/03/22 11:45 Total Protein 7.8 g/dL (6.6-8.7) 01/03/22 11:45 Albumin 4.0 g/dL (3.5-5.2) 01/03/22 11:45 Globulin 3.8 g/dL (1.3-4.6) 01/03/22 11:45 Procalcitonin 0.05 ng/mL (0-0.5) 01/03/22 11:45 TSH 2.42 uIU/mL (0.27-4.20) 01/03/22 11:45 Coronavirus 229E (PCR) Not detected (NOT DETECT) 01/03/22 11:22 SARS-CoV-2 (PCR) Not detected (NOT DETECT) 01/03/22 11:22 EKG Data EKG 1: I personally reviewed and interpreted this EKG as follows: EKG Interpretation Date: 01/03/22 EKG interpretation time: 17:26 Interpretation: Twelve-lead EKG shows a regular rhythm at a rate of 88. NC interval 179, QRS duration 110, QTc 401. Normal axis. Interpretation: Sinus rhythm. Nonspecific ST segment abnormalities. EKG 2: I personally reviewed and interpreted this EKG as follows: EKG Interpretation Date: 01/03/22 EKG interpretation time: 14:06 Interpretation: Twelve-lead EKG shows a regular rhythm at a rate of 83. NC interval 155, QRS duration 110, QTc 428. Normal axis. Interpretation: Sinus rhythm. Nonspecific ST segment abnormalities Discharge Plan Discharge Patient Disposition: Placed in Observation Admit Provider: Michael Cortez Clinical Impression: Acute non-ST elevation myocardial infarction (NSTEMI), Hypoxemia Discharge Diet: Cardiac Discharge Activity: Increase activity as tolerated Coding Level of Care Code ED Wire Mesh Gate Assembler for g Fwd Exam Comprehensive
--- NOTE | 2022-01-03 11:07 | ECG_ITS ---
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: : 1945 Requested By: Christian Carrion Order Number: [id number] Cesar MD: KIM MORGAN Measurements Intervals [place] Rate: 81 P: 31 [place]: 162 QRS: 46 QRSD: 110 T: 94 QT: 381 QTc: 445 Interpretive Statements SINUS RHYTHM POSSIBLE LEFT ATRIAL ENLARGEMENT [-0.1mV P-WAVE IN V1/V2] LEFT VENTRICULAR HYPERTROPHY AND ST-T CHANGE [VOLTAGE CRITERIA PLUS ST/T ABNORMALITY] POSSIBLE SEPTAL MYOCARDIAL INFARCTION , OF INDETERMINATE AGE [30 ms Q WAVE IN V1/V2] Compared to ECG 12/22/2020 20:59:27 Left ventricular hypertrophy now present ST (T wave) deviation now present Myocardial infarct finding now present Atrial fibrillation no longer present Electronically Signed On 01-03-2022 22:55:01 GIS APPLICATION DEVELOPER by KIM MORGAN [email or web address] [id number] f
--- NOTE | 2022-01-03 11:07 | XR_ITS ---
WS: [id number] PORTABLE CHEST HISTORY: sob COMPARISON: 12/22/2020 Mildly hyperinflated lungs. New diffuse interstitial thickening, bilateral and greatest throughout th e RIGHT lung. No pneumothorax. No pleural effusion or dense consolidation. Cardiac size: Mildly enlarged cardiac silhouette. Mediastinum/Aorta: Mild atherosclerosis aorta. Osteopenia. Prior LEFT axillary an dissection. XR/XR chest 1V portable [id number] IMPRESSION: 1. Mild progression of interstitial thickening, likely due to pneumonitis. No dense consolidation or pneumonia. 2. Emphysema.
[2022-01-03 11:37] LABS: ABG PCO2 43.9 mmHg (35-45); ABG PH Result 7.46 (7.35-7.45); Base Excess ABG 6.8 mmol/L (-2.0-2.0); Blood Gas Operator Identificat AMH; Blood Gas Sample Site Brachial, right; Blood Gas Sample Type Arterial; HCO3 ABG 31.4 mmol/L (22-26); Oxygen Device NC
[2022-01-03 12:10] LABS: Basophils % 0.4 %; Eosinophils % 0.3 %; Hematocrit 38.4 % (37.0-47.0); Hemoglobin 12.3 g/dL (11.5-15.3); Lymphocytes # 0.4 10^3/uL (0.8-4.8); Lymphocytes % 5.8 %; Mean Corpuscular Hemoglobin 29.1 pg (28.0-34.0); Mean Platelet Volume 12.9 fL (7.4-10.4); Monocytes # 0.3 10^3/uL (0.2-0.9); Monocytes % 3.5 %; Neutrophils # 6.39 10^3/uL (1.8-7.7); Neutrophils % 89.7 %; Nucleated Red Blood Cells % 0 %; Platelet Count 184 10^3/cmm (130-400); Red Blood Count 4.22 10^6/uL (4.1-5.3); Red Cell Distribution Width 14.4 % (12.1-15.1); White Blood Count 7.1 10^3/uL (4.0-10.0)
[2022-01-03] MEDS: ipratropium-albuterol 3 mL Neb INHALATION (12:18)
--- NOTE | 2022-01-03 12:41 | PC.NURSE ---
Patient placed on continuous bed side cardiac BP O2 monitor
--- NOTE | 2022-01-03 13:07 | ECG_ITS ---
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
[2022-01-03 13:17] LABS: Troponin(5th) Baseline 48 ng/L (0-10)
[2022-01-03 13:24] LABS: NT Pro B Type Natriuretic Pept 1438 pg/mL (0-450); Procalcitonin 0.05 ng/mL (0-0.5); Thyroid Stimulating Hormone 2.42 uIU/mL (0.27-4.20)
[2022-01-03 13:35] LABS: Alanine Aminotransferase 18 U/L (0-33); Alkaline Phosphatase 115 IU/L (35-105); Anion Gap 17.9 (5-19); Aspartate Amino Transferase 19 U/L (0-32); Blood Urea Nitrogen 13 mg/dL (8-23); C Reactive Protein 7.1 mg/L (0.0-4.9); Calcium 8.9 mg/dL (8.5-10.5); Carbon Dioxide 26 mmol/L (22-29); Chloride 95 mmol/L (98-107); Globulin 3.8 g/dL (1.3-4.6); Glucose 119 mg/dL (65-115); Magnesium 1.9 mg/dL (1.7-2.3); Osmolality Calculated 283 mOsm/kg (285-295); Sodium 136 mmol/L (136-145); Total Bilirubin 0.7 mg/dL (0.15-1.2); Total Protein 7.8 g/dL (6.6-8.7)
[2022-01-03 13:43] LABS: Creatinine Clr Calc Pharmacy 50.9571; Potassium 2.9 mmol/L (3.5-5.1)
--- NOTE | 2022-01-03 13:44 | PC.NURSE ---
Critical potassium 2.[address] Carrion.
[2022-01-03] MEDS: potassium chloride oral liq 20 mEq/15 mL UDC 60 MEQ PO (13:55)
[2022-01-03] MEDS: sodium chloride 0.9% 500 ML 999 ML IV (13:56)
[2022-01-03 14:25] LABS: Troponin 5 2HR 84.22 ng/L (0-10)
[2022-01-03 14:36] LABS: Troponin 5 2HR Delta 36.22 ABS# (0-10)
--- NOTE | 2022-01-03 14:38 | PC.NURSE ---
2hr delta trop 36.[address] Carrion.
[2022-01-03 14:59] LABS: Adenovirus Not Detected (NOT DETECT); Chlamydia Pneumoniae Not Detected (NOT DETECT); Coronavirus 229E,HKU1,NL63,OC4 Not Detected (NOT DETECT); Human Metapneumovirus Not Detected (NOT DETECT); Human Rhinovirus/Enterovirus Not Detected (NOT DETECT); Influenza A Not Detected (NOT DETECT); Influenza A H1 Not Detected (NOT DETECT); Influenza A H1-2009 Not Detected (NOT DETECT); Influenza A H3 Not Detected (NOT DETECT); Influenza B Not Detected (NOT DETECT); Mycoplasma Pneumoniae Not Detected (NOT DETECT); Parainfluenza Virus Type 1 Not Detected (NOT DETECT); Parainfluenza Virus Type 2 Not Detected (NOT DETECT); Parainfluenza Virus Type 3 Not Detected (NOT DETECT); Parainfluenza Virus Type 4 Not Detected (NOT DETECT); Respiratory Syncytial Virus A Not Detected (NOT DETECT); Respiratory Syncytial Virus B Not Detected (NOT DETECT); SARS-COV-2 Not Detected (NOT DETECT)
[2022-01-03] MEDS: aspirin 81 mg Chew Tablet 324 MG PO (15:22)
--- NOTE | 2022-01-03 16:11 | PM.HP ---
Providers/Chief Complaint Primary Care Provider: Yue Thompson MD Chief Complaint: SOB/ HTN History of Present Illness Deepali Mulligan is a 76 year old female who does carry history of established CHF, A. fib, chronic anticoagulation presented today with 1 week history of shortness of breath. Patient is stating that for last 1 week she has gained weight, she has been experiencing orthopnea, PND and worsening shortness of breath. Patient is stating that today her shortness of breath got worse and her blood pressure was very high. No recent fever, diarrhea, chest pain, nausea or vomiting. She is consistent with her medications, she watches her sodium intake, she lives alone, she owns 10 acres, she is enjoying her [facility] life she retired after her diagnosis of A. fib in February 2021. In the ER she has been diagnosed with CHF exacerbation, I will give her 60 mg of IV Lasix along potassium replenishment, will request echo, diurese her aggressively She does carry history of breast cancer status post surgery chemoradiation , she has been taking 1 1/2 tablet of Lasix which she claims is 40 mg however I also see chlorthalidone from cardiology visit in October, Chest x-ray shows pulmonary edema EKG without ischemic or infarctive changes Systolic blood pressure 180s, at the time of my evaluation she is requiring 2 L of oxygen which is new Covid PCR and antigen negative her symptoms are related to CHF exacerbation. Significant delta troponin Review of Systems Const: Denies: chills Eyes: Denies: change in vision ENMT: Denies: throat pain Card: Reports: dyspnea on exertion and orthopnea; Denies: chest pain Resp: Reports: dyspnea GI: Denies: abdominal pain : Denies: flank pain Musc: Denies: neck pain Skin/Breast: Denies: rash Neuro: Denies: headache(s) Psych: Denies: anxiety Endo: Denies: polyuria Heri/Lymph: Denies: easy bruising All/Imm: Denies: urticaria Medications/Allergies Home Medications Medication Instructions Recorded Confirmed Last Taken Type famotidine 10 mg tablet 10 - 20 mg PO DAILY@0830 01/04/20 01/03/22 12/22/20 History aspirin 81 mg tablet,delayed 81 mg PO DAILY@11/26/20 01/03/22 12/22/20 History release clonidine HCl 0.1 mg tablet 0.1 mg PO BID PRN #30 tab 12/27/20 01/03/22 Unknown Rx rivaroxaban 20 mg tablet (Xarelto) 20 mg PO DAILY@2100 #90 tab 07/26/21 01/03/22 Unknown Rx atorvastatin 80 mg tablet 80 mg PO BEDTIME@21 #90 tab 10/21/21 01/03/22 Unknown Rx potassium chloride 20 mEq 20 meq PO BID #60 tab 12/16/21 01/03/22 Unknown Rx tablet,extended release furosemide 40 mg tablet 60 mg PO DAILY #135 tab 12/31/21 01/03/22 Unknown Rx amiodarone 200 mg tablet 200 mg PO DAILY 01/03/22 01/03/22 Unknown History magnesium 250 mg tablet 250 mg PO DAILY 01/03/22 01/03/22 Unknown History Allergies Allergy/AdvReac Type Severity Reaction Status Date / Time Iodinated Contrast Media Allergy ALGY-Rash Verified 01/03/22 15:56 azithromycin AdvReac Unknown Verified 01/03/22 15:56 naproxen AdvReac Unknown Verified 01/03/22 15:56 PFSH Acute PFSH: Medical History Acid reflux Atrial fibrillation Atrial fibrillation with RVR Breast cancer CHF (congestive heart failure), NYHA class III CVA (cerebral vascular accident) Elevated serum creatinine Elevated serum creatinine High risk medication use Hyperlipidemia Hypertension Hypokalemia Other halfway (current) 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 Surgical History H/O: hysterectomy History of inguinal hernia repair History of left mastectomy Family History Other Hyperlipidemia Psychiatric illness Denies family history of Rheumatoid arthritis Lupus Social History Second hand smoke exposure: No Alcohol intake: never Lives independently: Yes Household members: none Current occupational status: employed Current occupation: [employer] History of recent travel: No Current gender identity: Female Vitals/I&O/Wt Last Vital Signs Temp 97.9 F 01/03/22 13:51 Pulse 84 01/03/22 15:17 Resp 26 H 01/03/22 15:17 BP 176/90 01/03/22 15:17 Pulse Ox 93 01/03/22 15:17 01/03/22 01/03/22 01/03/22 06:59 14:59 22:59 Intake Total 500 / 500 52 / 552 Balance 500 / 500 52 / 552 Weight last 48 hrs Weight 81.647 kg Physical Exam Narrative: Very pleasant cooperative early female Currently on 2 L nasal cannula S1, S2 variable Abdomen soft firm nontender Lower extremity no edema Clinically does not look fluid overloaded No audible stridor or wheezing No signs of labored breathing Awake and alert Nonfocal neuro exam Data : 01/03/22 11:45 01/03/22 11:45 Micro: Microbiology 01/03/22 11:15 Blood Culture - Preliminary Blood SPECIMEN COLLECTED 01/03/22 11:25 Blood Culture - Preliminary Blood SPECIMEN COLLECTED A&P Assessment and plan (1) Acute non-ST elevation myocardial infarction (NSTEMI): Status: Acute (2) Hypoxemia: Status: Acute (3) Acute exacerbation of CHF (congestive heart failure): Status: Acute (4) Hypokalemia: Status: Acute (5) Chronic kidney disease: Status: Acute Plan NSTEMI No active chest pain We will give her therapeutic Lovenox Aspirin and Plavix Check echo Acute hypoxia related to CHF exacerbation Wean off oxygen with diuresis Covid antigen and PCR negative Acute CHF exacerbation Preserved ejection fraction as per previous echo Repeat echo today A. fib Without RVR Hold Xarelto Continue AV an blocking agents Chronic kidney disease without acute exacerbation Hypertensive urgency: Optimize antihypertensive regimen Patient is not sure about CODE STATUS we will treat her as full code for now, she will like to discuss with her children She lives alone and manages her home on her own Attestations Medical Necessity Statement*: Less than 2 midnights for CHF exacerbation management, type II IL? Time Spent in Patient Care: 35 minutes Coding Level of Care Code Acute Scraper Meat for Jolene Bingham Diagnoses Acute non-ST elevation myocardial infarction (NSTEMI) I21.4 Hypoxemia R09.02 Acute exacerbation of CHF (congestive heart failure) I50.9 Hypokalemia E87.6 Chronic kidney disease N18.9
[2022-01-03] MEDS: lidocaine 1% 5 ML in potassium chloride premix 100 ML 25 ML IV (16:39)
[2022-01-03] MEDS: FUROsemide 10 mg/mL SDV 10mL 60 MG IVP (16:44)
--- NOTE | 2022-01-03 17:07 | ECG_ITS ---
[facility] Test Date: 2022-01-03 Pat Name: Deepali Mulligan Department: Room: Gender: Female Learning Facilitator: : 1945 Requested By: Christian Carrion Order Number: [id number] Reading MD: KIM MORGAN Measurements Intervals [place] Rate: 88 P: 42 [place]: 179 QRS: 48 QRSD: 110 T: 68 QT: 355 QTc: 432 Interpretive Statements SINUS RHYTHM POSSIBLE LEFT ATRIAL ENLARGEMENT [-0.1mV P-WAVE IN V1/V2] LEFT VENTRICULAR HYPERTROPHY AND ST-T CHANGE [VOLTAGE CRITERIA PLUS ST/T ABNORMALITY] POSSIBLE SEPTAL MYOCARDIAL INFARCTION , OF INDETERMINATE AGE [30 ms Q WAVE IN V1/V2] Compared to ECG 01/03/2022 13:46:07 Myocardial infarct finding now present ST (T wave) deviation still present Electronically Signed On 01-03-2022 22:56:03 ELECTRONIC NEWS GATHERING EDITOR by KIM MORGAN [id number]
--- NOTE | 2022-01-03 19:42 | PC.NURSE ---
pt states arm is burning because of potassium and wants it stopped immediately
--- NOTE | 2022-01-03 21:18 | PC.NURSE ---
Admit Note Patient admitted to CSU room 108 from ED via wheelchair. Covering service notified. Patient presents with increased SOB over past week. Improved at this time. Patient up ambulating in room reporting able to breathe much easier. Meal provided. Patient denies pain or other needs presently. No distress observed. Orders reviewed & will continue to monitor. Patient and/or cordage sales representative oriented to environment, equipment, and informed of the following as found in the admission booklet: patient rights & responsibilities, visitor policy, hand and respiratory hygiene practice. Other education includes: Plavix. Patient verbalized understanding.
[2022-01-03] MEDS: acetaminophen 500 mg Tablet PO (21:53)
[2022-01-03] MEDS: clopidogrel 300 mg Tablet PO (21:53)
[2022-01-04] VITALS (8 sets, daily range): BP systolic 152–187; BP diastolic 60–94; PULSE 65–84; RESP 16–23; TEMP 36.9; O2SAT 20–98
[2022-01-04 05:44] LABS: Hematocrit 35.2 % (37.0-47.0); Hemoglobin 11.2 g/dL (11.5-15.3); Lymphocytes # 0.4 10^3/uL (0.8-4.8); Mean Corpuscular HGB Conc 31.8 g/dL (30.0-36.0); Mean Corpuscular Hemoglobin 29.6 pg (28.0-34.0); Mean Corpuscular Volume 92.9 fl (81-99); Mean Platelet Volume 12.6 fL (7.4-10.4); Monocytes # 0.4 10^3/uL (0.2-0.9); Monocytes % 9.9 %; Neutrophils # 3.49 10^3/uL (1.8-7.7); Neutrophils % 80.6 %; Nucleated Red Blood Cells % 0 %; Platelet Count 179 10^3/cmm (130-400); Red Blood Count 3.79 10^6/uL (4.1-5.3); Red Cell Distribution Width 14.5 % (12.1-15.1); White Blood Count 4.3 10^3/uL (4.0-10.0)
[2022-01-04 06:02] LABS: Blood Urea Nitrogen 17 mg/dL (8-23); Carbon Dioxide 30 mmol/L (22-29); Chloride 101 mmol/L (98-107); Glucose 131 mg/dL (65-115); Magnesium 2.5 mg/dL (1.7-2.3); Osmolality Calculated 291 mOsm/kg (285-295); Sodium 139 mmol/L (136-145)
--- NOTE | 2022-01-04 08:00 | USCV_ITS ---
Deepali Mulligan Age: 76 Gender: F : 1945 Exam Date: 01/04/2022 08:59 Ordering Phys: Michael Cortez MD Technologist: Cayetano Henderson [place] [facility] [place]: chf exacerbation BP: 174 / 89 HR: 72 Rhythm: Sinus Technical Quality: Adequate MEASUREMENTS (Male / Female) Normal Values 2D ECHO LV Diastolic Diameter PLAX 4.8 cm 4.2 - 5.9 / 3.9 - 5.3 cm LV Systolic Diameter PLAX 3.1 cm IVS Diastolic Thickness 1.6 cm 0.6 - 1.0 / 0.6 - 0.9 cm IVS Systolic Thickness 2.0 cm LVPW Diastolic Thickness 1.0 cm 0.6 - 1.0 / 0.6 - 0.9 cm LVPW Systolic Thickness 1.7 cm LVOT Diameter 2.0 cm LV Ejection Fraction 2D Teich 65.4 % LV Ejection Fraction MOD 2C 65.7 % LV Ejection Fraction 2C AL 67.1 % LA Diameter 3.7 cm LA Width 5.3 cm LA Height 5.8 cm RA Width 4.6 cm RA Height 5.7 cm Aorta at Sinotubular Diameter 2.5 cm M-MODE Aortic Annulus Diameter 2.9 cm LA Ao Ratio MM 1.4 MV E Point Septal Separation 1.0 cm DOPPLER AV Peak Velocity 162.0 cm/s LVOT Peak Velocity 112.0 cm/s AV Area Cont Eq vti 2.3 cm squared AV Area Cont Eq pk 2.2 cm squared MV Area PHT 3.3 cm squared Mitral E to A Ratio 0.8 MV E' Velocity 44.5 cm/s Mitral E to MV E' Ratio 9.4 Mitral E to LV E' Lateral Ratio 9.2 Mitral E to LV E' Septal Ratio 9.7 TR Peak Velocity 341.7 cm/s TR Peak Gradient 46.7 mmHg TR Mean Velocity 214.0 cm/s TR Mean Gradient 19.7 mmHg TR Velocity Time Integral 86.5 cm Right Atrial Pressure 3.0 mmHg Pulmonary Artery Systolic Pressu 49.7 mmHg RV Acceleration Time 0.1 s RV Ejection Time 0.3 s RV AcT/ET 0.5 FINDINGS Left Ventricle Normal left ventricular size. LV systolic function is normal with EF of 55-60%. No regional wall motion abnormalities. Grade 1 diastolic dysfunction Right Ventricle The right ventricle is normal in size and function. Right Atrium The right atrium is dilated Left Atrium The left atrium is severely dilated Mitral Valve Structurally normal mitral valve without significant stenosis or prolapse. There is moderate mitral regurgitation. Aortic Valve Aortic valve is thickened without significant stenosis. There is mild aortic regurgitation. Tricuspid Valve Structurally normal tricuspid valve without significant stenosis. Mild tricuspid regurgitation. Insufficient TR jet to calculate RVSP Pulmonic Valve Structurally normal pulmonic valve without significant stenosis. There is mild pulmonic regurgitation. Pericardium Normal pericardium without effusion. Aorta Normal ascending aorta dimension. CONCLUSIONS LV systolic function is normal with EF of 55-60%. Grade 1 diastolic dysfunction Biatrial enlargement Moderate mitral regurgitation Aortic valve is thickened. Mild aortic regurgitation Mild pulmonic regurgitaion Compared to prior echocardiogram from 11/09/2020, no significant changes are noted Omega Centeno MD (Electronically Signed) Final Date: 04 January 2022 19:22 S
[2022-01-04] MEDS: amlodipine 10 mg Tablet PO ×2 (10:00→10:05)
[2022-01-04] MEDS: potassium chloride ER 20 mEq Tablet 40 MEQ PO (10:01)
[2022-01-04] MEDS: aspirin 81 mg EC Tablet PO (10:01)
[2022-01-04] MEDS: FUROsemide 10 mg/mL SDV 10mL 60 MG IVP (10:01)
[2022-01-04] MEDS: clopidogrel 75 mg Tablet PO (10:01)
[2022-01-04] MEDS: hyDRALAzine 25 mg Tablet PO ×3 (10:01→21:52)
[2022-01-04] MEDS: amiodarone 200 mg Tablet PO (10:01)
--- NOTE | 2022-01-04 14:19 | PM.PN ---
Subjective Subjective: Patient is endorsing feeling better, she is on room air, not requiring oxygen today, on room air saturating 97%, no orthopnea PND she was able to lay flat Urine output was not measured overnight, requested nurse to monitor today antihypertensive regimen will be adjusted Vitals/I&O/Wt Last Vital Signs Temp 98.5 F 01/04/22 11:50 Pulse 67 01/04/22 11:50 Resp 19 H 01/04/22 11:50 BP 168/80 01/04/22 11:50 Pulse Ox 20 L 01/04/22 11:50 01/03/22 01/04/22 01/04/22 22:59 06:59 14:59 Intake Total 397 / 897 240 / 1137 590 / 590 Output Total 700 / 700 Balance -303 / 197 240 / 437 590 / 590 Weight last 48 hrs Weight 90.582 kg Weight 81.647 kg Physical Exam Narrative: Patient laying supine No orthopnea PND Clinically euvolemic Doing well on room Nonfocal neuro exam Abdomen soft No audible stridor or wheezing Data : 01/04/22 05:15 01/04/22 05:15 Micro: Microbiology 01/03/22 11:15 Blood Culture - Preliminary Blood NEGATIVE TO DATE 01/03/22 11:25 Blood Culture - Preliminary Blood NEGATIVE TO DATE A&P Assessment and plan (1) Chronic kidney disease: Status: Acute (2) Hypokalemia: Status: Acute (3) Acute exacerbation of CHF (congestive heart failure): Status: Acute (4) Hypoxemia: Status: Acute Plan Acute CHF exacerbation Preserved ejection fraction Echo is pending Patient is clinically doing better I am planning to discharge her tomorrow if clinically better We will readjust her antihypertensive regimen Nurse updated to measure accurate output Patient is able to lay flat orthopnea and PND has improved Continue cardiac diet Full code DVT prophylaxis on board Chronic kidney disease without acute exacerbation Acute hypoxia resolved with diuresis, it was secondary to CHF exacerbation Currently doing well on room air Attestations Medical Necessity Statement*: Discharge tomorrow Time Spent in Patient Care: 15 minutes Coding Level of Care Code Acute Double End Production Grinder for Chg Fwd Diagnoses Chronic kidney disease N18.9 Hypokalemia E87.6 Acute exacerbation of CHF (congestive heart failure) I50.9 Hypoxemia R09.02
[2022-01-04] MEDS: atorvastatin 40 mg Tablet 80 MG PO (21:52)
[2022-01-05] VITALS (7 sets, daily range): BP systolic 147–186; BP diastolic 74–96; PULSE 65–75; RESP 18–25; TEMP 36.4–36.8; O2SAT 92–95
--- NOTE | 2022-01-05 01:08 | PC.PHAR ---
Pharmacokinetic dosing service Date: 01/05/2022 Time: 99 Objective: Patient: Deepali Mulligan Floor: 108 Age: 76 yo Serum creatinine: 1.1 mg/dL Height: 67.0 Inches Weight (kg): 90.582 Diagnosis: Relevant medical/social history: Cultures and sensitivities: Other labs: Assessment: IBW (kg): 61.60 Dosing wt(kg): 90.582 Estimated Creatinine clearance (ml/min): 41.0 CRCL method: Cockcroft and Gault using ibw(default). Drug selected: Vancomycin Loading dose (mg): 0 Vd (liters): 81.5 (factor used: 0.9 L/kg) Salvador (hr-1): 0.038 Half life (hrs): 18.24 Recommended dose: 1500 mg Interval: 24 hrs Infusion time (hrs): 1.5 Predicted peak (mcg/mL): 29.9 Predicted trough (mcg/mL): 12.72 Total body weight is being used for vancomycin dosing. Renal function is stable [ ] /unstable [ ] Recommendations: Give Vancomycin 1500 mg q 24 hrs with an expected Cpeak of 29.9 mcg/ml and an expected Ctrough of 12.72 mcg/ml Renal dosing of other antibiotics (review renal dosing of other medications and list guidelines here): Thank you for the consult, will continue to follow. Signature: Albina Jones [facility]
[2022-01-05 02:24] LABS: Bacillus cereus group Not Detected (NOT DETECT); Bacillus subtillis group Not Detected (NOT DETECT); Corynebacterium Not Detected (NOT DETECT); Cutibacterium acnes (P.acnes) Not Detected (NOT DETECT); Enterococcus Not Detected (NOT DETECT); Enterococcus faecalis Not Detected (NOT DETECT); Enterococcus faecium Not Detected (NOT DETECT); Lactobacillus species Not Detected (NOT DETECT); Listeria Not Detected (NOT DETECT); Listeria monocytogenes Not Detected (NOT DETECT); Micrococcus Not Detected (NOT DETECT); Pan Candida Not Detected (NOT DETECT); Pan Gram-Negative Not Detected (NOT DETECT); Staphylococcus epidermidis Detected (NOT DETECT); Staphylococcus lugdunensis Not Detected (NOT DETECT); Staphylococcus species Detected (NOT DETECT); Streptococcus agalactiae Not Detected (NOT DETECT); Streptococcus anginosus group Not Detected (NOT DETECT); Streptococcus pneumoniae Not Detected (NOT DETECT); Streptococcus pyogenes Not Detected (NOT DETECT); Streptococcus species Not Detected (NOT DETECT); mecA Detected (NOT DETECT); mecC Not Detected (NOT DETECT)
[2022-01-05] MEDS: vancomycin 1,500 MG/300 ML PIGGYBACK 200 MG IV (03:10)
[2022-01-05] MEDS: cloNIDine 0.1 mg Tablet PO (03:27)
[2022-01-05 03:47] LABS: Blood Urea Nitrogen 22 mg/dL (8-23); Calcium 8.2 mg/dL (8.5-10.5); Carbon Dioxide 31 mmol/L (22-29); Chloride 99 mmol/L (98-107); Glucose 98 mg/dL (65-115); Osmolality Calculated 293 mOsm/kg (285-295); Sodium 140 mmol/L (136-145)
[2022-01-05 04:07] LABS: Anion Gap 13.6 (5-19); Potassium 3.6 mmol/L (3.5-5.1)
[2022-01-05] MEDS: potassium chloride ER 20 mEq Tablet 40 MEQ PO (08:14)
[2022-01-05] MEDS: hyDRALAzine 25 mg Tablet PO ×3 (08:14→21:32)
[2022-01-05] MEDS: clopidogrel 75 mg Tablet PO (08:14)
[2022-01-05] MEDS: aspirin 81 mg EC Tablet PO (08:14)
[2022-01-05] MEDS: amlodipine 10 mg Tablet PO (08:14)
[2022-01-05] MEDS: amiodarone 200 mg Tablet PO (08:14)
--- NOTE | 2022-01-05 09:51 | ECG_ITS ---
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 Interpretive Statements NAME OF STUDY: LEXISCAN SESTAMIBI STRESS TEST INDICATION: Angina PROCEDURE: At the baseline, the blood pressure was 181/101 mmHg with a heart rate of 63 bpm. The electrocardiogram showed sinus rhythm, possible left atrial enlargement and left ventricular hypertrophy. The Lexiscan was infused over a period of 20 seconds. A total of 0.4 milligrams of Lexiscan was infused. The stress phase was continued for a total of 5 minutes. Heart rate at the end of the stress phase was 77 bpm with a blood pressure 105/84 mmHg. The EKG at the peak infusion revealed no significant ST-T wave changes. Interpretation limited by baseline artifact. Sestamibi was injected 20 seconds after the Lexiscan infusion. Blood pressure at the end of the recovery phase was 119/83 mmHg with a heart rate of 78 beats per minute. CONCLUSION: 1. No significant EKG changes with the LexiScan infusion. Interpretation limited by artifact 2. No LexiScan induced chest pain or cardiac arrhythmia. 3. Baseline hypertension with normal blood pressure and heart rate response. 4. Sestamibi/sestamibi perfusion scan pending; see separate report. Electronically Signed On 01-07-2022 9:17:41 RADIATION PROTECTION TECHNICIAN by Jody Solis M.D. [id number]
--- NOTE | 2022-01-05 09:54 | P.PN_ITS ---
Subjective Subjective: No overnight events, blood culture contamination, will discontinue vancomycin, plan for stress test tomorrow, patient is eager to return home to take care of her dogs but considering exertional dyspnea and uptrend of troponin will do stress test before discharge We will start Lasix 80 p.o. daily Vitals/I&O/Wt Last Vital Signs Temp 97.5 F L 01/05/22 03:27 Pulse 74 01/05/22 08:17 Resp 19 H 01/05/22 08:17 BP 170/79 01/05/22 08:17 Pulse Ox 92 01/05/22 03:27 01/04/22 01/05/22 01/05/22 22:59 06:59 14:59 Intake Total 600 / 1190 300 / 1490 Output Total 625 / 625 1700 / 2325 Balance -25 / 565 -1400 / -835 Weight last 48 hrs Weight 90.582 kg Weight 81.647 kg Physical Exam Narrative: Patient sitting comfortably in her bed Saturating well on room air Euvolemic S1, S2 Nonfocal neuro exam No audible stridor or wheezing Appropriate mood and affect Data : 01/04/22 05:15 01/05/22 02:48 Micro: Microbiology 01/03/22 11:15 Blood Culture - Preliminary Blood Staphylococcus epidermidis 01/03/22 11:25 Blood Culture - Preliminary Blood NEGATIVE TO DATE A&P Assessment and plan (1) Chronic kidney disease: Status: Acute (2) Hypokalemia: Status: Acute (3) Acute exacerbation of CHF (congestive heart failure): Status: Acute (4) Acute non-ST elevation myocardial infarction (NSTEMI): Status: Acute Plan Acute preserved ejection heart failure exacerbation Currently euvolemic Switch to p.o. Lasix 80 mg daily Doing well on room air Exertional shortness of breath: Uptrend of troponin, NSTEMI: Continue aspirin, Plavix, therapeutic Lovenox, stress test tomorrow morning Hypokalemia: Improved Hypertension urgency: Added hydrochlorothiazide, hydralazine 25 mg 3 times daily, amlodipine 10 mg History of A. fib Continue amiodarone, at home takes Xarelto which I will start at the time of discharge Plan to discharge her home if stress test is negative She follows up with Dr. Solis [email or web address] after midnight Full code Attestations Medical Necessity Statement*: 15 Coding Level of Care Code Acute Assistant Finance Director for Chg Fwd Diagnoses Chronic kidney disease N18.9 Hypokalemia E87.6 Acute exacerbation of CHF (congestive heart failure) I50.9 Acute non-ST elevation myocardial infarction (NSTEMI) I21.4
[2022-01-05] MEDS: enoxaparin 100 mg/mL Syringe 90 MG SUBCUT ×2 (12:00→21:34)
[2022-01-05] MEDS: FUROsemide 40 mg Tablet 80 MG PO (12:01)
[2022-01-05] MEDS: hydroCHLOROthiazide 25 mg Tablet PO (12:01)
--- NOTE | 2022-01-05 21:25 | PC.NURSE ---
Shift Note Frequent safety and comfort rounds continue. Orders and/or nursing care completed as indicated. Patient monitored for response to intervention and treatment(s). Education provided includes lexiscan stress test, npo post mid. Patient and/or shipping services sales representative verbalizes understanding. Will continue to monitor.
[2022-01-05] MEDS: atorvastatin 40 mg Tablet 80 MG PO (21:32)
[2022-01-06] VITALS: BP 152/64; PULSE 67; RESP 20; O2SAT 98
[2022-01-06] MEDS: acetaminophen 500 mg Tablet PO (00:45)
[2022-01-06 05:11] LABS: Anion Gap 13.6 (5-19); Blood Urea Nitrogen 20 mg/dL (8-23); Calcium 8.5 mg/dL (8.5-10.5); Carbon Dioxide 31 mmol/L (22-29); Chloride 97 mmol/L (98-107); Glucose 109 mg/dL (65-115); Osmolality Calculated 289 mOsm/kg (285-295); Potassium 3.6 mmol/L (3.5-5.1); Sodium 138 mmol/L (136-145)
[2022-01-06 06:00] VITALS: PULSE 60
[2022-01-06] MEDS: LORazepam 2 mg/mL INJ 1 mL 0.5 MG IVP (06:56)
[2022-01-06 07:05] VITALS: BP 206/100; PULSE 65; RESP 22; O2SAT 96
--- NOTE | 2022-01-06 07:38 | PC.NURSE ---
Patient sleeping most of night. NPO. Given .5 of ativan at end of shift and was taken for stress test. Will continue to monitor.
[2022-01-06] MEDS: regadenoson 0.4 Mg/5 ml Syringe IVP (07:50)
[2022-01-06 07:58] VITALS: BP 119/83; PULSE 78
[2022-01-06] MEDS: hyDRALAzine 50 mg Tablet PO (09:34)
[2022-01-06] MEDS: FUROsemide 40 mg Tablet 80 MG PO (09:35)
[2022-01-06] MEDS: amlodipine 10 mg Tablet PO (09:36)
[2022-01-06] MEDS: lisinopril 10 mg Tablet PO ×2 (09:36→09:40)
[2022-01-06] MEDS: clopidogrel 75 mg Tablet PO (09:36)
[2022-01-06] MEDS: hydroCHLOROthiazide 25 mg Tablet PO (09:37)
[2022-01-06] MEDS: amiodarone 200 mg Tablet PO (09:37)
[2022-01-06] MEDS: potassium chloride ER 20 mEq Tablet 40 MEQ PO (09:37)
[2022-01-06] MEDS: aspirin 81 mg EC Tablet PO (09:37)
--- NOTE | 2022-01-06 09:51 | NMCV_ITS ---
NM cindy perf SPECT r/s* [id number] Deepali Mulligan Age: 76 Gender: F : 1945 Exam Date: 01/06/2022 09:51 Ordering Phys: Michael Cortez MD Technologist: LAMBERT Hendrix Exam Location: [facility] Indications: CHEST PAIN STRESS TEST Please [facility] IMAGE PROTOCOL Rest/Stress 1 Lexiscan Day Radiopharmaceutical Dose (mCi) Administration Site Administered by Rest: Tc-99m 10.9 IV LAMBERT Spaulding Sestamibi Stress:Tc-99m 32.9 IV LAMBERT Spaulding Sestamibi Rest: 06-Jan-2022 60 Discovery 630 Stress: 06-Jan-2022 30 Discovery 630 0.4mg Lexiscan. Images obtained in supine and prone position. SPECT RESULTS Technical Quality: Excellent Raw Data Analysis: Normal Image Corrections: No attenuation or motion correction applied Summed Stress Score: 8 Summed Rest Score: 12 Summed Difference Score: 1 PERFUSION FINDINGS There is a large in size, fixed perfusion defect in apical lateral, lateral and inferior vences. No evidence of ischemia is seen. This likely represents prior infarct. FUNCTIONAL RESULTS (calculated via Gated SPECT) Stress Image LV EF (%): 34 Stress EDV (mL):152 TID: 1.1 Stress ESV (mL):101 FUNCTIONAL FINDINGS: LV systolic function is moderate to severely reduced with EF of 34%. IMPRESSIONS 1. Abnormal myocardial perfusion imaging with prior infarct seen in the in the RCA and Left circumflex artery. 2. LV systolic function is moderate to severely reduced Omega Centeno MD (Electronically Signed) Final Date: 06 January 2022 09:49 S
[2022-01-06 12:12] VITALS: BP 135/66; PULSE 62; RESP 16; TEMP 20.9; O2SAT 93
--- NOTE | 2022-01-06 12:14 | PM.DCS ---
Discharge Providers Date of Admission: 01/03/22 16:13 Date of Discharge: January 06, 2022 Attending Provider at Admission: Michael Cortez MD Attending Provider at Discharge: Michael Cortez MD Primary Care Provider: Yue Thompson MD Diagnoses at Discharge Discharge Diagnosis (1) Chronic kidney disease: Status: Acute (2) Hypokalemia: Status: Acute (3) Acute exacerbation of CHF (congestive heart failure): Status: Acute (4) Acute non-ST elevation myocardial infarction (NSTEMI): Status: Acute Reason for Visit Reason for Visit: SOB/ HTN Hospital Course Hospital Course 76-year-old female who was admitted for management evaluation of dyspnea on exertion. She was diagnosed with hypertensive urgency, her anti hypertensive regimen was optimized with amlodipine, lisinopril and hydralazine which seemed to improve her blood pressure. Cardiac stress test was requested which showed old infarct. During stress test EF was read low however on echocardiogram which is showing preserved ejection fraction without regional wall motion abnormalities. Stress test was pursued for evaluation of dyspnea exertion and leakage of troponin. She did receive Lovenox therapeutic regimen for 48 hours in the hospital. She did not experience any chest pain EKG was not consistent with any ischemic or infarctive changes. Patient remained hemodynamically stable. Her creatinine is fluctuant between 1-1.1. For management of hypertension I have added lisinopril, amlodipine and low-dose hydralazine. She follows up with Dr. Solis, will give her outpatient referral. Physical Exam Narrative: Patient laying supine No orthopnea PND Clinically euvolemic Doing well on room Nonfocal neuro exam Abdomen soft No audible stridor or wheezing Discharge Data Studies Completed and Pending Completed Studies During Hospitalization Category Date Time Status Sestamibi Stress Test Request Routine Exams 01/05/22 09:51 Draft XR chest 1V portable [id number] Urgent Exams 01/03/22 11:07 Completed NM cindy perf SPECT r/s* [id number] Routine Nuc Med 01/06/22 09:51 Completed CV. echo complete* [id number] Routine Ultrasound 01/04/22 08:00 Completed Pending at discharge Category Date Time Status Blood Culture Stat Lab 01/03/22 11:15 Results Radiology Impressions Chest X-Ray 01/03/22 11:07 IMPRESSION: 1. Mild progression of interstitial thickening, likely due to pneumonitis. No dense consolidation or pneumonia. 2. Emphysema. Laboratory Results WBC 4.3 10^3/uL (4.0-10.0) 01/04/22 05:15 RBC 3.79 10^6/uL (4.1-5.3) L 01/04/22 05:15 Hgb 11.2 g/dL (11.5-15.3) L 01/04/22 05:15 Hct 35.2 % (37.0-47.0) L 01/04/22 05:15 MCV 92.9 fl (81-99) 01/04/22 05:15 MCH 29.6 pg (28.0-34.0) 01/04/22 05:15 MCHC 31.8 g/dL (30.0-36.0) 01/04/22 05:15 RDW 14.5 % (12.1-15.1) 01/04/22 05:15 Plt Count 179 10^3/cmm (130-400) 01/04/22 05:15 MPV 12.6 fL (7.4-10.4) H 01/04/22 05:15 Neut % (Auto) 80.6 % 01/04/22 05:15 Lymph % (Auto) 9.0 % 01/04/22 05:15 Telfair % (Auto) 9.9 % 01/04/22 05:15 Eos % (Auto) 0.0 % 01/04/22 05:15 Baso % (Auto) 0.0 % 01/04/22 05:15 Neut # (Auto) 3.49 10^3/uL (1.8-7.7) 01/04/22 05:15 Lymph # (Auto) 0.4 10^3/uL (0.8-4.8) L 01/04/22 05:15 Telfair # (Auto) 0.4 10^3/uL (0.2-0.9) 01/04/22 05:15 Eos # (Auto) 0.0 10^3/uL (0.0-0.8) 01/04/22 05:15 Baso # (Auto) 0.0 10^3/uL (0.0-0.1) 01/04/22 05:15 Nucleated RBC % (auto) 0 % 01/04/22 05:15 Nucleated RBCs # 0.0 /100WBC 01/04/22 05:15 Specimen Type Arterial 01/03/22 11:25 Sample Site Brachial, right 01/03/22 11:25 ABG pH 7.46 (7.35-7.45) H 01/03/22 11:25 ABG pCO2 43.9 mmHg (35-45) 01/03/22 11:25 ABG pO2 71.0 mmHg (80.0-100.0) L 01/03/22 11:25 ABG HCO3 31.4 mmol/L (22-26) H 01/03/22 11:25 ABG Base Excess 6.8 mmol/L (-2.0-2.0) H 01/03/22 11:25 Yadiel Test N/a 01/03/22 11:25 Hematocrit 39.0 % (37-47) 01/03/22 11:25 O2 Delivery Device Nc 01/03/22 11:25 O2 Liters/Min 3.0 % 01/03/22 11:25 FiO2 32.0 % 01/03/22 11:25 Vocational Counselor ID Amh 01/03/22 11:25 Sodium 138 mmol/L (136-145) 01/06/22 04:18 Potassium 3.6 mmol/L (3.5-5.1) 01/06/22 04:18 Chloride 97 mmol/L (98-107) L 01/06/22 04:18 Carbon Dioxide 31 mmol/L (22-29) H 01/06/22 04:18 Anion Gap 13.6 (5-19) 01/06/22 04:18 BUN 20 mg/dL (8-23) 01/06/22 04:18 Creatinine 1.1 mg/dL (0.5-0.9) H 01/06/22 04:18 GFR Calculation Not Reportable 01/06/22 04:18 Glucose 109 mg/dL (65-115) 01/06/22 04:18 Calculated Osmolality 289 mOsm/kg (285-295) 01/06/22 04:18 Calcium 8.5 mg/dL (8.5-10.5) 01/06/22 04:18 Magnesium 2.5 mg/dL (1.7-2.3) H 01/04/22 05:15 Total Bilirubin 0.7 mg/dL (0.15-1.2) 01/03/22 11:45 AST 19 U/L (0-32) 01/03/22 11:45 ALT 18 U/L (0-33) 01/03/22 11:45 Alkaline Phosphatase 115 IU/L (35-105) H 01/03/22 11:45 Troponin T Baseline 48 ng/L (0-10) H 01/03/22 11:45 Troponin T 120 Minute 84.22 ng/L (0-10) H 01/03/22 13:50 Delta Troponin T 36.22 ABS# (0-10) H* 01/03/22 13:50 Troponin T Hi Sens 6Hr 93.30 ng/L (0-10) H 01/03/22 19:37 Troponin T Hi Sens 6Hr Delta 45.30 ng/L (0-12) H* 01/03/22 19:37 C-Reactive Protein 7.1 mg/L (0.0-4.9) H 01/03/22 11:45 NT-Pro-B Natriuret Pep 1438 pg/mL (0-450) H 01/03/22 11:45 Total Protein 7.8 g/dL (6.6-8.7) 01/03/22 11:45 Albumin 4.0 g/dL (3.5-5.2) 01/03/22 11:45 Globulin 3.8 g/dL (1.3-4.6) 01/03/22 11:45 Procalcitonin 0.05 ng/mL (0-0.5) 01/03/22 11:45 TSH 2.42 uIU/mL (0.27-4.20) 01/03/22 11:45 Coronavirus 229E (PCR) Not detected (NOT DETECT) 01/03/22 11:22 SARS-CoV-2 (PCR) Not detected (NOT DETECT) 01/03/22 11:22 Vitals Last Vital Signs Temp 69.7 F L 01/06/22 12:12 Pulse 62 01/06/22 12:12 Resp 16 01/06/22 12:12 BP 135/66 01/06/22 12:12 Pulse Ox 93 01/06/22 12:12 Discharge Plan Discharge Patient Disposition: Home Condition: Stable Prescriptions: New amlodipine 10 mg Tablet 10 mg PO DAILY Qty: 60 2RF lisinopril 10 mg Tablet 10 mg PO DAILY Qty: 60 3RF albuterol sulfate 90 mcg/actuation HFA aerosol inhaler 2 inh inhalation Q8H PRN (Reason: shortness of breath or wheezing) Qty: 8.5 1RF hydralazine 10 mg tablet 10 mg PO BID Qty: 60 2RF Continued famotidine 10 mg tablet 10 - 20 mg PO DAILY@0830 0RF Xarelto 20 mg tablet 20 mg PO DAILY@2100 Qty: 90 1RF atorvastatin 80 mg tablet 80 mg PO BEDTIME@21 Qty: 90 2RF potassium chloride 20 mEq tablet extended release 20 meq PO BID Qty: 60 3RF furosemide 40 mg tablet 60 mg PO DAILY Qty: 135 0RF aspirin 81 mg tablet,delayed release (DR/EC) 81 mg PO DAILY@09 0RF clonidine HCl 0.1 mg tablet 0.1 mg PO BID PRN (Reason: HTN) Qty: 30 0RF magnesium 250 mg Tablet 250 mg PO DAILY 0RF amiodarone 200 mg tablet 200 mg PO DAILY 0RF Discharge Orders: Discharge Order (Routine); Ordered 01/06/22 Ordered By: Michael Cortez Referrals: Jody Solis MD [Physician] - 2 weeks Yue Thompson MD [Primary Care Provider] - 4-7 days Discharge Diet: Cardiac Discharge Activity: Increase activity as tolerated Patient Instructions: Opioid Safety Discharge Attestations Time Spent in Discharge Care*: less than 30 min Status at Discharge: Cognitive status at discharge: cognitively intact, Behavioral status at discharge: cooperative, Quality Metrics Clinical Quality Measures [ No reported AMI, CVA or VTE this stay] Coding Level of Care Code Acute Chg DC note Diagnoses Chronic kidney disease N18.9 Hypokalemia E87.6 Acute exacerbation of CHF (congestive heart failure) I50.9 Acute non-ST elevation myocardial infarction (NSTEMI) I21.4
[2022-01-06] MEDS: enoxaparin 100 mg/mL Syringe 90 MG SUBCUT (12:58)
[2022-01-06 13:03] VITALS: BP 135/66; PULSE 62; RESP 16; O2SAT 93
--- NOTE | 2022-01-06 13:06 | PC.NURSE ---
Patient is hungry, currently waiting on a tray from [employer].
--- NOTE | 2022-01-06 14:13 | PC.NURSE ---
Patient discharged 1402 via wheel chair, left with friends in personal vehicle. Education provided and written education given to patient.
== END 2022-01-06 14:02 | disposition home or self-care (01) ==
LOC: ER 18:47 → CSU 20:44
PROVIDERS: Admitting Provider Internal Medicine; Emergency Provider Emergency Medicine; PCP Family Medicine; Visit Provider Internal Medicine
DX: I21.4 Non-ST elevation (NSTEMI) myocardial infarction (principal); N18.9 Chronic kidney disease, unspecified; E87.6 Hypokalemia; I50.9 Heart failure, unspecified; I16.0 Hypertensive urgency; Z79.01 Long term (current) use of anticoagulants; I48.91 Unspecified atrial fibrillation; Z85.3 Personal history of malignant neoplasm of breast; Z79.82 Long term (current) use of aspirin; Z86.73 Personal history of transient ischemic attack (TIA), and cerebral infarction without residual deficits; Z79.899 Other long term (current) drug therapy; E78.5 Hyperlipidemia, unspecified
CPT/HCPCS: 36415; 36600; 71045; 78452; 80048; 80053; 82803; 83735; 83880; 84145; 84443; 84484; 85025; 86140; 87040; 87150; 87205; 87635; 93005; 93306; 94640; 96365; 96367; 96372; 96375; 99285; A9500; G0378; J1650; J1940; J2060; J2785; J3370; J3475; J3480; J7040

== ENCOUNTER → 2022-01-22 12:23 | Outpatient (BNVA) | payer MEDICARE, SELFPAY | PROVIDERS: PCP Family Medicine; Visit Provider Nurse Practitioner Family | DX: I11.0 Hypertensive heart disease with heart failure (principal); I50.9 Heart failure, unspecified; I48.91 Unspecified atrial fibrillation | CPT/HCPCS: 36415; 80048; 83880; 99214 ==

== ENCOUNTER → 2022-03-26 10:59 | Outpatient (BNVA) | payer MEDICARE, SELFPAY | PROVIDERS: PCP Family Medicine; Visit Provider Family Medicine | DX: M25.552 Pain in left hip (principal) | CPT/HCPCS: 73502 ==

== ENCOUNTER 2022-06-21 16:01 | Emergency (ER) | payer MEDICARE, SELFPAY ==
[2022-06-21 16:14] VITALS: BP 200/80; PULSE 71; RESP 16; TEMP 36.7; O2SAT 98; BMI 28.1
--- NOTE | 2022-06-21 16:18 | XRR_ITS ---
PROCEDURE INFORMATION: Exam: XR Bilateral Hips Exam date and time: 06/21/2022 4:40 PM Age: 76 years old Clinical indication: Hip pain; Bilateral TECHNIQUE: Imaging protocol: Radiologic exam of the bilateral hips. Views: 2 views of hips with pelvis when performed. COMPARISON: CR XR hip LT 2-3V wo/w pel* [id number] 03/26/2022 11:13 AM FINDINGS: Bones/joints: Mild osteoarthritis of the hips bilaterally. Soft tissues: Unremarkable. XR/XR hip BI 2V wo/w pel [id number] IMPRESSION: Mild osteoarthritis of the hips bilaterally.
[2022-06-21 18:11] VITALS: BP 164/79; PULSE 73; RESP 16; O2SAT 96
--- NOTE | 2022-06-21 19:21 | ED_ITS ---
HPI - Extremity Problem General: Chief complaint: Extremity Problem,Nontraumatic Stated complaint: hip pain Time Seen by Provider: 06/21/22 19:18 History of Present Illness: 76-year-old female patient comes in today with right hip pain. Patient denies any falls or injury. Patient reports worsening pain over the last 2 days. Patient has some difficulty walking even with a walker. Patient denies any fever or chills. Patient reports no nausea or vomiting or chest pain. Patient appears nontoxic. Patient appears in mild pain at rest. 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 Surgical History H/O: hysterectomy History of inguinal hernia repair History of left mastectomy Family History Other Hyperlipidemia Psychiatric illness Denies family history of Rheumatoid arthritis Lupus Social History Smoking and tobacco status: never smoked Second hand smoke exposure: No Alcohol intake: never Lives independently: Yes Household members: none Current occupational status: employed Current occupation: [employer] History of recent travel: No Current gender identity: Female Physical Exam Const: COMMON NORMALS: alert HENMT: COMMON NORMALS: normocephalic HEAD & SCALP: normocephalic Neck/C-Spine: COMMON NORMALS: full ROM Resp: COMMON NORMALS: normal respiratory effort Cardio: COMMON NORMALS: regular rate and regular rhythm RATE: regular rate RHYTHM: regular rhythm : COMMON NORMALS: Yes no CVA tenderness BLADDER/KIDNEY EXAM: Yes no CVA tenderness Back/Pelvis: COMMON NORMALS: no CVA tenderness LUMBAR SPINE/LOWER BACK: No lumbar spinal tenderness Extremity: RIGHT LOWER EXTREMITY: Yes hip joint (Lateral hip pain and tenderness.) Neuro: SENSORIUM/ORIENTATION: Yes alert Course Vital Signs: Vital signs: Vital Signs Temperature 98.1 F 06/21/22 16:14 Pulse Rate 73 06/21/22 18:11 Respiratory Rate 16 06/21/22 18:11 Blood Pressure 164/79 06/21/22 18:11 Pulse Oximetry 96 06/21/22 18:11 Oxygen Delivery Me thod 06/21/22 16:14 MDM - Extremity (Nontraumatic) Medical Decision Making 76-year-old female comes in today with complaints of right hip pain. Patient reports increased pain with ambulation. Patient denies any fever or nausea or vomiting. On exam patient appears well. Patient appears in mild to moderate pain. Patient moves all extremities well. Patient has tenderness to palpation of the lateral right hip. Differential diagnosis includes tendinitis, osteoarthritis of the hip, fracture. X-rays of pelvis and right hip showed no signs of fracture. X-ray did note some mild osteoarthritis. Patient was given a dose of hydrocodone for her pain. Patient was also given a dose of dexamethasone 10 mg. Recommended ambulation as tolerated. Recommend follow-up with primary care for further instruction. Recommend return to the ER for worsening symptoms or new concerns. Lab Data Radiology Impressions Hip/Pelvis X-Ray 06/21/22 16:18 IMPRESSION: Mild osteoarthritis of the hips bilaterally. Discharge Plan Discharge Patient Disposition: Home Clinical Impression: Right hip tendinitis Condition: Stable Prescriptions: New hydrocodone-acetaminophen 5-325 mg tablet 1 tab PO Q8H PRN (Reason: pain (scale score 7-10)) Qty: 10 0RF No Action famotidine 10 mg tablet 10 - 20 mg PO DAILY@0830 furosemide 40 mg tablet 40 mg PO BID PRN (Reason: edema) Qty: 180 0RF ketoconazole 2 % cream 1 applic topical BID Qty: 30 1RF lisinopril 10 mg tablet 10 mg PO DAILY Qty: 60 3RF amiodarone 200 mg tablet 200 mg PO DAILY Qty: 30 4RF amlodipine 10 mg tablet 10 mg PO DAILY Qty: 60 4RF metronidazole [Metrogel] 1 % gel 1 applic topical DAILY Qty: 60 4RF potassium chloride 20 mEq tablet extended release 20 meq PO BID Qty: 60 4RF diclofenac sodium 1 % gel 2 g topical QID Qty: 100 0RF Rx Instructions: Apply to hip qid prn atorvastatin 80 mg tablet 80 mg PO BEDTIME@21 Qty: 90 2RF Xarelto 20 mg tablet 20 mg PO DAILY@2100 Qty: 90 0RF aspirin 81 mg tablet,delayed release (DR/EC) 81 mg PO DAILY@09 clonidine HCl 0.1 mg tablet 0.1 mg PO BID PRN (Reason: HTN) Qty: 30 0RF magnesium 250 mg Tablet 250 mg PO DAILY albuterol sulfate 90 mcg/actuation HFA aerosol inhaler 2 inh inhalation Q8H PRN (Reason: shortness of breath or wheezing) Qty: 8.5 1RF Discharge Orders: Discharge ED (Routine); Ordered 06/21/22 Ordered By: Ryan West Referrals: Yue Thompson MD [Primary Care Provider] - Discharge Diet: Usual diet Discharge Activity: Increase activity as tolerated Patient Instructions: Hip Pain (ED), Opioid Safety Activity Restrictions/Additional Instructions: Activity as tolerated. Use acetaminophen and ibuprofen to help with pain. Use hydrocodone for severe pain. Try to maintain activity as much near to normal as possible. Use a cane or walker to help with ambulation. Follow-up with primary care for persistent symptoms. Return to ER for new concerns or worsening symptoms such as inability to stand, fever greater than 100.4. Coding Level of Care Code ED Solvent Process Extractor Operator for Jolene Fwd Exam Comprehensive
[2022-06-21] MEDS: dexamethasone 10 mg/mL INJ IM (19:46)
[2022-06-21] MEDS: HYDROcodone-acetaminophen 10-325 mg Tablet 1 TAB PO (19:46)
[2022-06-21 19:59] VITALS: BP 173/96; PULSE 75; RESP 17; O2SAT 94
== END 2022-06-21 19:55 | disposition home or self-care (01) ==
PROVIDERS: Emergency Provider Nurse Practitioner Family; PCP Family Medicine
DX: M76.9 Unspecified enthesopathy, lower limb, excluding foot (principal); Z79.82 Long term (current) use of aspirin; I11.0 Hypertensive heart disease with heart failure; I50.9 Heart failure, unspecified; I25.2 Old myocardial infarction; Z85.3 Personal history of malignant neoplasm of breast; Z86.73 Personal history of transient ischemic attack (TIA), and cerebral infarction without residual deficits; E72.3 Disorders of lysine and hydroxylysine metabolism
CPT/HCPCS: 73521; 73523; 96372; 99284; J1100

== ENCOUNTER 2022-06-25 16:20 | Outpatient (CLI) | payer MEDICARE, SELFPAY ==
--- NOTE | 2022-06-25 17:01 | XR_ITS ---
WS: [id number] Lumbar spine, AP, lateral L5-S1 spot, both obliques, lateral views in flexion, extension and neutral position, 06/25/2022 Clinical Data: low back pain Comparison: None. Findings: No subluxation is seen. No disc space narrowing is seen. There are compression fractures of the centr al aspects of the vertebral bodies L2, L3 and L4 with loss of 25-50% of the vertebral body height. Th ere is diffuse osteoporosis. The vertebral bodies L2-L5 show anterior osteophyte formation. The trans verse processes and SI joints are normal. The oblique films show no spondylolysis. On flexion and extension there is slight limitation of motio n but no subluxation. There is a large amount of fecal material throughout the colon. XR/XR lumbar spine 6V w f/e [id number] Impression: 1. Compression fractures of L2, L3 and L4 of indeterminate age. 2. Diffuse osteoporosis and osteoarthritis. 3. Negative for spondylolysis. 4. Limitation of motion on flexion and extension but no subluxation.
== END 2022-06-25 16:21 | disposition home or self-care (01) ==
LOC: RAD 16:23
PROVIDERS: PCP Family Medicine; Visit Provider Family Medicine
DX: S32.029A Unspecified fracture of second lumbar vertebra, initial encounter for closed fracture (principal); S32.039A Unspecified fracture of third lumbar vertebra, initial encounter for closed fracture; S32.049A Unspecified fracture of fourth lumbar vertebra, initial encounter for closed fracture; M81.0 Age-related osteoporosis without current pathological fracture; X58.XXXA Exposure to other specified factors, initial encounter
CPT/HCPCS: 72114

== ENCOUNTER → 2022-08-05 10:53 | Outpatient (BNVA) | payer MEDICARE, SELFPAY | PROVIDERS: PCP Family Medicine; Referring Provider Family Medicine; Visit Provider Orthopaedic Surgery | DX: M48.56XA Collapsed vertebra, not elsewhere classified, lumbar region, initial encounter for fracture (principal) | CPT/HCPCS: 99204 ==

== ENCOUNTER → 2022-08-19 16:23 | Outpatient (BNVA) | payer MEDICARE, SELFPAY | PROVIDERS: PCP Family Medicine; Visit Provider Family Medicine | DX: R60.9 Edema, unspecified (principal); I77.6 Arteritis, unspecified; E78.5 Hyperlipidemia, unspecified; E87.6 Hypokalemia; I10 Essential (primary) hypertension | CPT/HCPCS: 80053; 80061; 84443; 85025 ==

== ENCOUNTER 2022-09-22 09:20 | Outpatient (CLI) | payer MEDICARE, SELFPAY ==
--- NOTE | 2022-09-22 11:30 | NM_ITS ---
WS: [id number] NUCLEAR MEDICINE BONE SCAN Radiopharmaceutical: 25.5 Tc-99m MDP mCi IV Injection site: Antecubital Postinjection imaging delay: 1 hr CLINICAL INFORMATION: T14.8XXA - Other injury of unspecified body region, initi... COMPARISON: June 25, 2022 FINDINGS: Bone lesions: Linear uptake in the superior endplates L3 L4 and L5 vertebral bodies consistent with r ecent compression. 2 or 3 additional punctate foci of uptake in the ribs likely due to healing rib fr actures most prominent a LEFT lower lateral rib. Soft tissue contours: Normal. Kidneys: Normal. Other findings: Degenerative type uptake involving both AC joints and both knees. NM/NM bone scan whole body* [id number] IMPRESSION: 1. Linear uptake in the superior endplates L3, L4, and L5 vertebral bodies con sistent with recent compression. This can be further evaluated with CT or MRI i f clinically indicated. 2. 2 or 3 punctate foci of uptake in the ribs likely due to healing rib fractu res most prominent a LEFT lower lateral rib.
== END 2022-09-22 09:21 | disposition home or self-care (01) ==
LOC: RAD 09:20
PROVIDERS: PCP Family Medicine; Visit Provider Orthopaedic Surgery
DX: S32.009A Unspecified fracture of unspecified lumbar vertebra, initial encounter for closed fracture (principal); X58.XXXA Exposure to other specified factors, initial encounter
CPT/HCPCS: 78306; A9561

== ENCOUNTER → 2022-10-29 13:54 | Outpatient (BNVA) | payer MEDICARE, SELFPAY | PROVIDERS: PCP Family Medicine; Referring Provider Orthopaedic Surgery; Visit Provider Internal Medicine | DX: M81.0 Age-related osteoporosis without current pathological fracture (principal); Z79.899 Other long term (current) drug therapy; I10 Essential (primary) hypertension; Z87.81 Personal history of (healed) traumatic fracture | CPT/HCPCS: 36415; 82306; 82310; 83970; 84439; 84443; 99204 ==

== ENCOUNTER → 2022-11-06 14:22 | Outpatient (BNVA) | payer MEDICARE, SELFPAY | PROVIDERS: PCP Family Medicine; Visit Provider Internal Medicine Cardiovascular Disease | DX: I13.0 Hypertensive heart and chronic kidney disease with heart failure and stage 1 through stage 4 chronic kidney disease, or unspecified chronic kidney disease (principal); N18.9 Chronic kidney disease, unspecified; I50.32 Chronic diastolic (congestive) heart failure; I48.0 Paroxysmal atrial fibrillation; I47.20 Ventricular tachycardia, unspecified | CPT/HCPCS: 99214 ==

== ENCOUNTER 2022-11-11 10:53 | Outpatient (CLI) | payer MEDICARE, SELFPAY ==
--- NOTE | 2022-11-11 10:30 | CT_ITS ---
WS: [id number] CT LUMBAR SPINE, noncontrast. HISTORY: compression fx TECHNIQUE: Contiguous axial imaging are performed. Sagittal and coronal reformats are submitted and r eviewed. All CT scans at [facility] use at least one of these dose optimization techniques: a utomated exposure control; mA and/or kV adjustment per patient size (includes targeted exams where do se is matched to clinical indication); or iterative reconstruction. IV contrast: None DLP: 1149.26 mGy.cm COMPARISON: Lumbar spine radiograph 06/25/2022. Diffuse osteopenia. Compression fractures involving L2, L3, L4 and L5. Most significant fracture at L 3. Biconcave fracture with posterior retropulsion of the vertebral body by 4 mm. Greater than 50% com pression fracture of L3. 50% compression fracture of L4 and 20% at L2 and L5. L1-2: Mild disc bulging and posterior displacement superior endplate of L2. No stenosis. L2-3: Mild diffuse annular disc bulging. Posterior retropulsion posterior superior endplate of L3 wit h encroachment upon the thecal sac and subarticular recesses. Mild to moderate central and subarticul ar recess stenosis. L3-4: Diffuse annular disc bulging and facet arthritis. Mild subarticular recess and foraminal stenos is. L4-5: Osteophytic ridging with disc bulging and a small central disc protrusion. Ligamentum flavum an d facet arthritis. Mild central and bilateral subarticular recess stenosis. Moderate RIGHT foraminal stenosis. L5-S1: Bilateral facet arthritis. No high-grade stenosis. Paravertebral soft tissues are normal. Mild atherosclerosis aorta. CT/CT lumbar spine wo con* [id number] IMPRESSION: 1. Diffuse osteopenia. 2. Multiple compression fractures in the lumbar spine including L2, L3, L4 and L5. 3. Greater than 50% compression fracture at L3 with retropulsion by 4 mm of th e posterior superior endplate. 4. Mild to moderate central and bilateral subarticular recess stenosis at L2-3 due to the retropulsion of L3. 5. Mild subarticular recess and foraminal stenosis at L3-4. 6. Moderate RIGHT foraminal stenosis at L4-5 with mild central and bilateral s ubarticular recess stenosis. 7. L5 compression fracture appears new since 06/25/2022. Progression of the L3 f racture since 06/25/2022.
== END 2022-11-11 10:54 | disposition home or self-care (01) ==
LOC: RAD 10:53
PROVIDERS: PCP Family Medicine; Visit Provider Orthopaedic Surgery
DX: M54.16 Radiculopathy, lumbar region (principal); S32.029A Unspecified fracture of second lumbar vertebra, initial encounter for closed fracture; S32.039A Unspecified fracture of third lumbar vertebra, initial encounter for closed fracture; S32.049A Unspecified fracture of fourth lumbar vertebra, initial encounter for closed fracture; S32.059A Unspecified fracture of fifth lumbar vertebra, initial encounter for closed fracture; X58.XXXA Exposure to other specified factors, initial encounter; M48.061 Spinal stenosis, lumbar region without neurogenic claudication
CPT/HCPCS: 72131

== ENCOUNTER → 2022-11-25 13:08 | Outpatient (BNVA) | payer MEDICARE, SELFPAY | PROVIDERS: PCP Family Medicine; Visit Provider Orthopaedic Surgery | DX: M48.56XA Collapsed vertebra, not elsewhere classified, lumbar region, initial encounter for fracture (principal) | CPT/HCPCS: 99214 ==

== ENCOUNTER 2022-11-28 13:22 | Outpatient (CLI) | payer MEDICARE, SELFPAY ==
--- NOTE | 2022-11-28 14:00 | XR_ITS ---
WS: [id number] SCREENING DEXA SCAN [employer] CLINICAL INFORMATION: osteoporosis with fractures COMPARISON: None. FINDINGS: The L1-L4 bone mineral density measures 0.662 g/cm2. This corresponds to a T score score of -4.3 and Z score of -3.1. Left femoral neck bone mineral density measures 0.669 g/cm2. This corresponds to a T score of -2.7 an d Z score of -1.2. Right femoral neck bone mineral density measures 0.644 g/cm2. This corresponds to a T score -2.9of an d Z score of -1.4. Mean femoral neck bone mineral density measures 0.656 g/cm2. This corresponds to a T score of -2.8 an d Z score of -1.3. XR/XR DEXA axial skeleton* [id number] IMPRESSION: Osteoporosis lumbar spine. Osteoporosis femoral necks. Patient's FRAX calculated 10 year probability for major osteoporotic fracture i s 49.3 % and osteoporotic hip fracture is 38.9%.
== END 2022-11-28 13:23 | disposition home or self-care (01) ==
LOC: RAD 13:26
PROVIDERS: PCP Family Medicine; Visit Provider Internal Medicine
DX: M80.0AXA Age-related osteoporosis with current pathological fracture, other site, initial encounter for fracture (principal)
CPT/HCPCS: 77080

== ENCOUNTER 2022-12-15 06:43 | Day surgery (SDC) | payer MEDICARE, SELFPAY ==
[2022-12-09 11:21] VITALS: BMI 29.0
[2022-12-09 11:39] LABS: Basophils % 0.3 %; Eosinophils # 0.1 10^3/uL (0.0-0.8); Eosinophils % 2.3 %; Hematocrit 40.3 % (37.0-47.0); Hemoglobin 12.9 g/dL (11.5-15.3); Lymphocytes # 1.4 10^3/uL (0.8-4.8); Lymphocytes % 23.4 %; Mean Corpuscular Hemoglobin 29.3 pg (28.0-34.0); Mean Corpuscular Volume 91.4 fl (81-99); Mean Platelet Volume 12.2 fL (7.4-10.4); Monocytes # 0.6 10^3/uL (0.2-0.9); Monocytes % 10.4 %; Neutrophils # 3.89 10^3/uL (1.8-7.7); Neutrophils % 63.3 %; Nucleated Red Blood Cells % 0 %; Platelet Count 180 10^3/cmm (130-400); Red Blood Count 4.41 10^6/uL (4.1-5.3); Red Cell Distribution Width 14.5 % (12.1-15.1); White Blood Count 6.2 10^3/uL (4.0-10.0)
[2022-12-09 11:52] LABS: Anion Gap 14.7 (5-19); Blood Urea Nitrogen 25 mg/dL (8-23); Calcium 8.8 mg/dL (8.5-10.5); Carbon Dioxide 27 mmol/L (22-29); Chloride 101 mmol/L (98-107); Glucose 102 mg/dL (65-115); Osmolality Calculated 293 mOsm/kg (285-295); Potassium 3.7 mmol/L (3.5-5.1); Sodium 139 mmol/L (136-145)
--- NOTE | 2022-12-09 13:25 | P.ANESASSM_ITS ---
Pre-Anesthetic Assessment Height/Weight: Height 1.7 m Weight 83.915 kg Operation Date: 12/15/22 11:40 Proposed Procedures p Kyphoplasty L3 L4 L5 70907/[id number]/96516/S32.000A(Not Applicable) - Nito Garner, DO Familial anesthetic complications: none Was Beta Ronak taken within 24 hours: N/A Was Clonidine taken within 24 hours: N/A Social No alcohol and No tobacco Exam alert, oriented x 3 and clear to auscultation bilaterally Airway Submandibular: within normal limits Cervical ROM: within normal limits Mallampati: Class II Dentition: false Pulmonary Asthma CV/HEM Atrial Fibrillation, Arrythmia and Hypertension Eliquis CONCLUSIONS ?LV systolic function is normal with EF of 55-60%. ?Grade 1 diastolic dysfunction ?Biatrial enlargement ?Moderate mitral regurgitation ?Aortic valve is thickened. Mild aortic regurgitation ?Mild pulmonic regurgitaion ?Compared to prior echocardiogram from 11/09/2020, no significant ?changes are noted ?Omega Centeno MD ?(Electronically Signed) ?Final Date:? ? ? 04 January 2022 Chronic Renal Insufficiency Metabolic Hyperlipidemia Medications/Allergies Home Medications Medication Instructions Recorded Confirmed Last Taken Type famotidine 10 mg tablet 10 - 20 mg PO BID 01/04/20 12/09/22 12/08/22 History aspirin 81 mg tablet,delayed 81 mg PO DAILY@09 11/26/20 12/09/22 12/09/22 History release clonidine HCl 0.1 mg tablet 0.1 mg PO BID PRN HTN #30 tabs 12/27/20 12/09/22 Unknown Rx magnesium 250 mg tablet 250 mg PO DAILY 01/03/22 12/09/22 12/08/22 History ketoconazole 2 % topical cream 1 applic topical BID #30 grams 01/22/22 12/09/22 12/08/22 Rx metronidazole 1 % topical gel 1 applic topical DAILY #60 grams 03/06/22 12/09/22 12/08/22 Rx (Metrogel) diclofenac sodium 1 % topical gel 2 g topical QID #100 grams 03/26/22 12/09/22 U nknown Rx hydrocodone 5 mg-acetaminophen 325 1 tab PO Q8H PRN pain (scale score 06/21/22 12/09/22 10/10/22 Rx mg tablet 7-10) #10 tabs lidocaine 5 % topical patch 1 patch topical DAILY #30 ea 06/25/22 12/09/22 12/08/22 Rx (Lidoderm) Back Brace #1 ea 08/05/22 11/25/22 Unknown Rx albuterol sulfate 90 mcg/actuation 2 inh inhalation Q8H PRN shortness 08/18/22 12/09/22 12/02/22 Rx aerosol inhaler of breath or wheezing #8.5 grams amlodipine 10 mg tablet 10 mg PO DAILY #60 tabs 08/19/22 12/09/22 12/09/22 Rx atorvastatin 80 mg tablet 80 mg PO BEDTIME@21 #90 tabs 08/19/22 12/09/22 12/08/22 Rx lisinopril 10 mg tablet 10 mg PO DAILY #60 tabs 08/19/22 12/09/22 12/08/22 Rx calcium carbonate 200 mg calcium 200 mg PO BID PRN Heartburn 11/06/22 12/09/22 Unknown History (500 mg) chewable tablet (Tums) cholecalciferol (vitamin D3) 25 25 mcg PO DAILY 11/06/22 12/09/22 Unknown History mcg (1,000 unit) capsule amiodarone 200 mg tablet 200 mg PO DAILY 12/09/22 12/09/22 12/09/22 History furosemide 40 mg tablet 60 mg PO DAILY 12/09/22 12/09/22 12/08/22 History potassium chloride 20 mEq 20 meq PO BID 12/09/22 12/09/22 12/08/22 History tablet,extended release rivaroxaban 20 mg tablet (Xarelto) 20 mg PO BEDTIME 12/09/22 12/09/22 12/08/22 History Allergies Allergy/AdvReac Type Severity Reaction Status Date / Time Iodinated Contrast Media Allergy ALGY-Rash Verified 12/09/22 11:02 azithromycin AdvReac Unknown Verified 12/09/22 11:02 naproxen AdvReac Unknown Verified 12/09/22 11:02 [facility] Anesthesia Medical History Acid reflux Acute exacerbation of CHF (congestive heart failure) Acute non-ST elevation myocardial infarction (NSTEMI) Atrial fibrillation Atrial fibrillation with RVR Breast cancer CHF (congestive heart failure), NYHA class III Chronic kidney disease CVA (cerebral vascular accident) Elevated serum creatinine Elevated serum creatinine High risk medication use Hyperlipidemia Hypertension Hypokalemia Hypoxemia Other half-way (current) 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 Surgical History H/O: hysterectomy History of inguinal hernia repair History of left mastectomy Family History Other Hyperlipidemia Psychiatric illness Denies family history of Rheumatoid arthritis Lupus Social History Smoking and tobacco status: never smoked Second hand smoke exposure: No Alcohol intake: never Lives independently: Yes Household members: none Current occupational status: employed Current occupation: [employer] History of recent travel: No Current gender identity: Female Data Anesthesia 12/09/22 11:20 12/09/22 11:20 Short CBC 12/09/22 Range/Units 11:20 WBC 6.2 (4.0-10.0) 10^3/uL Hgb 12.9 (11.5-15.3) g/dL Hct 40.3 (37.0-47.0) % MCV 91.4 (81-99) fl Plt Count 180 (130-400) 10^3/cmm Neut % (Auto) 63.3 % Neut # (Auto) 3.89 (1.8-7.7) 10^3/uL BMP 12/09/22 11:20 Sodium 139 Potassium 3.7 Chloride 101 Carbon Dioxide 27 BUN 25 H Creatinine 1.2 H Glucose 102 Calcium 8.8 Cardiac Studies: Echocardiogram 01/04/22 Echocardiogram Ultrasound 11/09/20 Sestamibi Stress Test (Cardiology) 01/05 Holter Monitor 03/07/20
[2022-12-15] VITALS (8 sets, daily range): BP systolic 136–184; BP diastolic 60–92; PULSE 70–82; RESP 15–20; TEMP 36.2–36.6; O2SAT 93–100
--- NOTE | 2022-12-15 06:58 | SC_ITS ---
WS: [email or web address] INTRAOPERATIVE TECHNIQUE: 4 Spot fluoroscopic images for intraoperative purposes. FLUOROSCOPY TIME: 120.4 seconds CLINICAL INFORMATION: Kyphoplasty L3,4,5 COMPARISON: None. FINDINGS: Intraoperative kyphoplasty changes with methacrylate L3-L5. SC/C-arm FL for Kyphoplasty IMPRESSION: Images obtained for intraoperative purposes.
[2022-12-15] MEDS: sodium chloride 0.9% 1,000 ML 30 ML IV (07:23)
--- NOTE | 2022-12-15 07:28 | ANES.PAUD2 ---
Pre-Anesthetic Update Pre-Anesthetic Assessment: Date of Surgery/Procedure: 12/15/22 Preop Diagnosis: Lumbar compression fracture L3, L4, L5, osteoporosis Proposed Procedure: Operation Date: 12/15/22 08:25 Proposed Procedures p Kyphoplasty L3 L4 L5 [id number]/68048/S32.000A(Not Applicable) - Nito Garner, DO Any changes to Pre-Anesthetic Assessment?: No Last Intake: Intake Last Liquid Date 12/15/22 Last Liquid Time 23:00 Last Solid Date 12/14/22 Last Solid Time 21:30 Vitals: Temperature 97.8 F 12/15/22 07:08 Temperature Source Temporal Artery S can 12/15/22 07:08 Pulse Rate 74 12/15/22 07:08 Pulse Rhythm 12/15/22 07:08 Pulse Strength 3+ Normal 12/15/22 07:08 Respiratory Rate 18 12/15/22 07:08 Blood Pressure 184/92 12/15/22 07:08 Blood Pressure Jada n 122 12/15/22 07:08 Pulse Oximetry 96 12/15/22 07:08 Oxygen Delivery Me thod 12/15/22 07:08 Exam: Pre-Anes Outpt Exam: alert, oriented x 3, clear to auscultation bilaterally and regular rate & rhythm Cardiac Studies: Echocardiogram 01/04/22 Echocardiogram Ultrasound 11/09/20 Sestamibi Stress Test (Cardiology) 01/05/22 Holter Monitor 03/07/20
--- NOTE | 2022-12-15 07:58 | W.PM.OPSUD ---
Surgery/Procedure H&P Update DATE OF PROCEDURE: December 15, 2022 DATE H&P PERFORMED: 11/25/22 H&P UPDATE INFORMATION: I have reviewed H&P completed within last 30 days, I have examined patient prior to procedure and No changes to prior documentation PREOP DIAGNOSIS: Lumbar compression fracture L3, L4, L5, osteoporosis PLANNED PROCEDURE: Operation Date: 12/15/22 08:25 Proposed Procedures p Kyphoplasty L3 L4 L5 14515/[id number]/09675/S32.000A(Not Applicable) - Nito Garner DO
[2022-12-15] MEDS: ceFAZolin 2,000 MG in sodium chloride 0.9% (plus) 50 ML 100 MG IV (08:05)
[2022-12-15] MEDS: acetaminophen 1,000 MG/100 ML PIGGYBACK 400 MG IV (08:30)
[2022-12-15] MEDS: iohexol 300 mg/mL 50 mL Btl (OR ONLY) XX (08:44)
--- NOTE | 2022-12-15 09:32 | P.OP_ITS ---
Operative Report Date of procedure: December 15, 2022 Pre-op diagnosis: Preop Diagnosis Lumbar compression fracture L3, L4, L5, osteoporosis Post-op diagnosis: same Procedure done: 1. L3 Kyphoplasty 2. L4 Kyphoplasty 3. L5 Kyphoplasty Surgeon: Nito Garner Boiler Assistant Operator: none Estimated blood loss (mL): 5 Procedure: 1. L3 Kyphoplasty 2. L4 Kyphoplasty 3. L5 Kyphoplasty Patient is brought to the procedure after undergoing anesthesia was placed prone on the operating table. Patient was then prepped and draped in normal sterile fashion. All areas impingement well-padded. Biplanar fluoroscopy was brought in. The incision was made on the right L3 pedicle. The awl was inserted. Followed by the drill followed by the balloon. Balloon was deflated and removed. Next attention was brought to the L4 level. Skin skin is made over the left pedicle of L4. The awl was inserted followed by the drill. The balloon was then inserted and inflated. This was again done under biplanar fluoroscopy. Balloon was inflated. Next attention was brought to the L5 level. Again the skin incision made on the right side of the pedicle. Again using biplanar fluoroscopy. The awl was inserted followed by the drill followed by the balloon. Balloon was deflated and removed. Next cement was injected into the L3 vertebrae through the tube. Again this was done with biplanar fluoroscopy ensuring that the cement and backfill out of the canal. This was done at L4 cement was injected at this level again watching under biplanar fluoroscopy. And cement was injected at L5 again much interim biplanar fluoroscopy. The cement was allowed to harden and then to was removed in AP lateral fluoroscopy ensure the cement was in good position. Wounds were irrigated and closed with nylon suture. Sterile dressings were applied patient was transferred to the PACU in stable condition.
--- NOTE | 2022-12-15 16:27 | ANE.PACU2 ---
Inpatient post-anesthesia follow up: Airway intact: Yes Vital signs: Temperature 97.1 F Pulse Rate 70 Respiratory Rate 17 Blood Pressure 136/60 Pulse Oximetry 93 Oxygen Delivery Me thod Room Air Oxygen Flow Rate 6 Fraction of Inspir ed Oxygen Hydration adequate: Yes Nausea and vomiting: No Pain level: 1 Mental status: Baseline
== END 2022-12-15 11:15 | disposition home or self-care (01) ==
PROVIDERS: Anesthesiology; PCP Family Medicine; Visit Provider Orthopaedic Surgery
PROC: (CPT 22514; principal; 2022-12-15 08:15)
DX: S32.030A Wedge compression fracture of third lumbar vertebra, initial encounter for closed fracture (principal); S32.040A Wedge compression fracture of fourth lumbar vertebra, initial encounter for closed fracture; S32.050A Wedge compression fracture of fifth lumbar vertebra, initial encounter for closed fracture; X58.XXXA Exposure to other specified factors, initial encounter; I48.91 Unspecified atrial fibrillation; E78.5 Hyperlipidemia, unspecified; Z79.82 Long term (current) use of aspirin; K21.9 Gastro-esophageal reflux disease without esophagitis; E11.22 Type 2 diabetes mellitus with diabetic chronic kidney disease; I13.0 Hypertensive heart and chronic kidney disease with heart failure and stage 1 through stage 4 chronic kidney disease, or unspecified chronic kidney disease; N18.9 Chronic kidney disease, unspecified; I50.9 Heart failure, unspecified
CPT/HCPCS: 22514; 22515 ×2; 36415; 76000; 80048; 85025; J0131; J0690; J1100; J2370; J2405; J2704; J3010; J3490; J7030

== ENCOUNTER → 2023-01-01 08:16 | Outpatient (BNVA) | payer MEDICARE, SELFPAY | PROVIDERS: PCP Family Medicine; Visit Provider Orthopaedic Surgery | DX: Z47.89 Encounter for other orthopedic aftercare (principal) | CPT/HCPCS: 99024; 99212 ==

== ENCOUNTER → 2023-01-16 10:58 | Outpatient (BNVA) | payer MEDICARE, SELFPAY | PROVIDERS: PCP Family Medicine; Visit Provider Internal Medicine | DX: M81.0 Age-related osteoporosis without current pathological fracture (principal); I10 Essential (primary) hypertension; Z87.81 Personal history of (healed) traumatic fracture; Z79.899 Other long term (current) drug therapy; Z85.3 Personal history of malignant neoplasm of breast | CPT/HCPCS: 36415; 82306; 82310; 83970; 99214 ==

== ENCOUNTER → 2023-03-23 10:24 | Outpatient (BNVA) | payer MEDICARE, SELFPAY | PROVIDERS: PCP Family Medicine; Visit Provider Family Medicine | DX: E78.5 Hyperlipidemia, unspecified (principal); I48.91 Unspecified atrial fibrillation; I10 Essential (primary) hypertension | CPT/HCPCS: 80053; 80061; 84443; 85025 ==

== ENCOUNTER → 2023-04-16 10:12 | Outpatient (BNVA) | payer MEDICARE, SELFPAY | PROVIDERS: PCP Family Medicine; Visit Provider Internal Medicine | DX: M81.0 Age-related osteoporosis without current pathological fracture (principal); E55.9 Vitamin D deficiency, unspecified; Z87.81 Personal history of (healed) traumatic fracture; Z91.81 History of falling | CPT/HCPCS: 99214 ==

== ENCOUNTER → 2023-07-15 11:57 | Outpatient (BNVA) | payer MEDICARE, SELFPAY | PROVIDERS: PCP Family Medicine; Visit Provider Family Medicine | DX: E55.9 Vitamin D deficiency, unspecified (principal); E78.5 Hyperlipidemia, unspecified; E87.6 Hypokalemia; I10 Essential (primary) hypertension; I48.91 Unspecified atrial fibrillation; Z79.899 Other long term (current) drug therapy | CPT/HCPCS: 80053; 80061; 82306; 84443; 85025 ==

== ENCOUNTER → 2023-12-18 10:06 | Outpatient (BNVA) | payer MEDICARE, SELFPAY | PROVIDERS: PCP Family Medicine; Visit Provider Internal Medicine Cardiovascular Disease | DX: I13.0 Hypertensive heart and chronic kidney disease with heart failure and stage 1 through stage 4 chronic kidney disease, or unspecified chronic kidney disease (principal); N18.9 Chronic kidney disease, unspecified; I50.9 Heart failure, unspecified; E78.5 Hyperlipidemia, unspecified; I48.91 Unspecified atrial fibrillation; Z51.81 Encounter for therapeutic drug level monitoring; Z79.899 Other long term (current) drug therapy; C50.919 Malignant neoplasm of unspecified site of unspecified female breast; Z79.01 Long term (current) use of anticoagulants | CPT/HCPCS: 99214 ==

== ENCOUNTER → 2024-03-24 11:05 | Outpatient (BNVA) | payer MEDICARE, SELFPAY | PROVIDERS: PCP Family Medicine; Visit Provider Family Medicine | DX: Z79.899 Other long term (current) drug therapy (principal); E55.9 Vitamin D deficiency, unspecified; I10 Essential (primary) hypertension | CPT/HCPCS: 80053; 80061; 82306; 85025 ==

== ENCOUNTER → 2024-03-31 16:28 | Outpatient (BNVA) | payer MEDICARE, SELFPAY | PROVIDERS: PCP Family Medicine; Visit Provider Family Medicine | DX: K52.9 Noninfective gastroenteritis and colitis, unspecified (principal) | CPT/HCPCS: 85025 ==

== ENCOUNTER → 2024-06-16 13:00 | Outpatient (BNVA) | payer MEDICARE, SELFPAY | PROVIDERS: PCP Family Medicine; Visit Provider Internal Medicine Cardiovascular Disease | DX: I13.0 Hypertensive heart and chronic kidney disease with heart failure and stage 1 through stage 4 chronic kidney disease, or unspecified chronic kidney disease (principal); N18.9 Chronic kidney disease, unspecified; I50.9 Heart failure, unspecified; E78.5 Hyperlipidemia, unspecified; I48.91 Unspecified atrial fibrillation; Z51.81 Encounter for therapeutic drug level monitoring; Z79.899 Other long term (current) drug therapy; Z79.01 Long term (current) use of anticoagulants | CPT/HCPCS: 99213 ==

== ENCOUNTER → 2024-08-10 16:00 | Outpatient (BNVA) | payer MEDICARE, SELFPAY | PROVIDERS: PCP Family Medicine; Visit Provider Family Medicine | DX: I10 Essential (primary) hypertension (principal); E78.5 Hyperlipidemia, unspecified | CPT/HCPCS: 80053; 80061; 84443; 85025 ==

== ENCOUNTER 2024-11-30 16:52 | Emergency (ER) | payer MEDICARE, SELFPAY ==
--- NOTE | 2024-11-30 16:54 | XRR_ITS ---
PROCEDURE INFORMATION: Exam: XR Chest Exam date and time: 11/30/2024 5:26 PM Age: 79 years old Clinical indication: Chest wall pain; Prior surgery; Surgery date: 6+ months; Surgery type: Masectomy; Additional info: Cp TECHNIQUE: Imaging protocol: Radiologic exam of the chest. Views: 1 view. COMPARISON: CR XR chest 1V portable [id number] 01/03/2022 11:22 AM FINDINGS: Lungs: No focal consolidation. Pleural spaces: No evidence of pneumothorax. No evidence of pleural effusion. Heart/Mediastinum: Cardiomediastinal silhouette is within normal limits. Bones/joints: No evidence of acute osseous abnormality. Clips noted projecting of the left axilla. XR/XR chest 1V portable [id number] IMPRESSION: 1. No acute cardiopulmonary abnormality.
--- NOTE | 2024-11-30 16:56 | ECG_ITS ---
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 Measurements Intervals [place] Rate: 85 P: 28 MI: 169 QRS: -19 QRSD: 110 T: 107 QT: 354 QTc: 421 Interpretive Statements SINUS RHYTHM LEFT VENTRICULAR HYPERTROPHY AND ST-T CHANGE [VOLTAGE CRITERIA PLUS ST/T ABNORMALITY] POSSIBLE ANTEROSEPTAL MYOCARDIAL INFARCTION , OF INDETERMINATE AGE [30 ms Q WAVE IN V1-V4] Compared to ECG 01/03/2022 17:19:09 No significant changes Electronically Signed On 11-30-2024 17:19:30 [employer] by Hawk Villagomez M.D. [email or web address]
[2024-11-30 16:59] VITALS: BP 173/93; PULSE 81; RESP 18; TEMP 36.8; O2SAT 98
[2024-11-30 17:33] VITALS: BP 189/85; PULSE 80; O2SAT 96
--- NOTE | 2024-11-30 17:33 | W.ED.CHESTPA ---
HPI - Chest Pain General: Chief Complaint: Chest Pain Stated Complaint: Chest Pain Time Seen by Provider: 11/30/24 17:29 History of Present Illness: 79-year-old female presents with left-sided chest pain this been going on for at least 2 days. Pain gets quite a bit worse especially with pressure or palpitation. Patient symptoms a little bit worse with certain movements. Pain does not radiate. She denies any new injury. She denies any shortness of breath, cough, fever, chills, nausea or vomiting. Associated symptoms: Deny abdominal pain, diaphoresis, dyspnea, fever(s), nausea, palpitations or vomiting Related Data Home Medications Medication Instructions Recorded Confirmed calcium carbonate (Tums) 200 mg PO BID PRN Heartburn 11/06/22 08/10/24 Previous Rx's Medication Instructions Recorded albuterol sulfate 90 mcg/actuation 2 inh inhalation Q8H PRN shortness 08/10/24 aerosol inhaler of breath or wheezing #8.5 grams atorvastatin 80 mg tablet See Rx Instructions .Route 08/10/24 .COMPLEX #90 tabs amiodarone 200 mg tablet See Rx Instructions .Route 08/15/24 .COMPLEX #30 tabs amlodipine 5 mg tablet See Rx Instructions .Route 08/15/24 .COMPLEX #30 tabs famotidine 10 mg tablet 10 - 20 mg (1 - 2 x 10 mg) PO BID 08/15/24 #60 tabs furosemide 40 mg tablet 40 mg .Route .COMPLEX edema #45 08/15/24 tabs rivaroxaban 20 mg tablet (Xarelto) See Rx Instructions .Route 08/15/24 .COMPLEX #30 tabs potassium chloride 20 mEq See Rx Instructions .Route 08/16/24 tablet,extended release .COMPLEX #270 tabs Allergies Allergy/AdvReac Type Severity Reaction Status Date / Time Iodinated Contrast Media Allergy ALGY-Rash Verified 11/30/24 17:04 azithromycin AdvReac Unknown Verified 11/30/24 17:04 naproxen AdvReac Unknown Verified 11/30/24 17:04 Review of Systems Const: Denies: fever(s), chills, malaise or diaphoresis Card: Reports: chest pain; Denies: palpitations, irregular heart rhythm, dyspnea on exertion or orthopnea Resp: Denies: dyspnea, productive cough or non-productive cough GI: Denies: abdominal pain, nausea or vomiting : Denies: flank pain Skin/Breast: Denies: rash PFSH ED PFSH: Medical History Anticoagulation adequate with anticoagulant therapy Chronic kidney disease Acute exacerbation of CHF (congestive heart failure) Hypoxemia Acute non-ST elevation myocardial infarction (NSTEMI) Hypokalemia Atrial fibrillation with RVR CHF (congestive heart failure), NYHA class III CVA (cerebral vascular accident) Atrial fibrillation Hyperlipidemia SS-A antibody positive Elevated serum creatinine Elevated serum creatinine Acid reflux Breast cancer Subacute cutaneous lupus erythematosus High risk medication use Other usp (current) drug therapy Hypertension Surgical History History of left mastectomy H/O: hysterectomy History of inguinal hernia repair Family History Other Hyperlipidemia Psychiatric illness Denies family history of Rheumatoid arthritis Lupus Social History Smoking and tobacco/nicotine status: never used tobacco/nicotine Second hand smoke exposure: No Alcohol intake: never Lives independently: Yes Household members: none Current occupational status: employed Current occupation: [employer] Current gender identity: Female Physical Exam Const: COMMON NORMALS: no acute distress, average body habitus, patient oriented x3, healthy appearing and alert Chest: CHEST: Yes tenderness (Left chest wall) Resp: COMMON NORMALS: normal respiratory effort, No retractions and No use of accessory muscles Cardio: COMMON NORMALS: regular rate and regular rhythm RATE: regular rate RHYTHM: regular rhythm GI: COMMON NORMALS: Soft to palpation and non-tender PALPATION: Yes Soft to palpation Neuro: COMMON NORMALS: patient oriented x3, no focal motor deficits and no sensory deficits noted SENSORIUM/ORIENTATION: Yes alert Psych: COMMON NORMALS: Normal thought process present, cooperative and normal affect THOUGHT PROCESS: Normal thought process present Skin: COMMON NORMALS: no rashes or lesions noted GENERAL SKIN EXAM: no rashes or lesions noted Course Vital Signs: Vital signs: Vital Signs Temperature 98.2 F 11/30/24 16:59 Pulse Rate 69 11/30/24 18:31 Respiratory Rate 18 11/30/24 16:59 Blood Pressure 164/82 11/30/24 18:31 Pulse Oximetry 97 11/30/24 18:31 Oxygen Delivery Me thod Room Air 11/30/24 16:59 MDM - Chest Pain Medical Decision Making Patient's diagnostic studies were ordered reviewed and interpreted by me. Patient's labs show no acute findings with a troponin that is just minimally elevated but likely due to her elevated creatinine. There was no change in the 2-hour troponin. Patient symptoms started yesterday. Pain gets worse with palpitation of the pectoris muscle or if she pushes her arm back to lift herself up off the bed. This pain is very consistent with a musculoskeletal pain versus cardiac. Patient has 2 negative EKGs with no acute changes noted. Patient stable and discharged home Lab Data 11/30/24 17:18 11/30/24 17:18 Radiology Impressions Chest X-Ray 11/30/24 16:54 IMPRESSION: 1. No acute cardiopulmonary abnormality. Laboratory Results WBC 7.37 10^3/uL (3.29-11.43) 11/30/24 17:18 RBC 4.82 10^6/uL (3.85-5.65) 11/30/24 17:18 Hgb 14.60 g/dL (11.27-16.99) 11/30/24 17:18 Hct 46.3 % (36-47) 11/30/24 17:18 MCV 96.1 fl (85-98) 11/30/24 17:18 MCH 30.3 pg (27-33) 11/30/24 17:18 MCHC 31.5 g/dL (30-55) 11/30/24 17:18 RDW 14.3 % (12.1-15.1) 11/30/24 17:18 Plt Count 168 10^3/cmm (157-399) 11/30/24 17:18 MPV 12.4 fL (7.4-10.4) H 11/30/24 17:18 Neut % (Auto) 70.1 % 11/30/24 17:18 Lymph % (Auto) 19.3 % 11/30/24 17:18 [place] % (Auto) 8.3 % 11/30/24 17:18 Eos % (Auto) 1.6 % 11/30/24 17:18 Baso % (Auto) 0.4 % 11/30/24 17:18 Neut # (Auto) 5.17 10^3/uL (1.8-7.7) 11/30/24 17:18 Lymph # (Auto) 1.4 10^3/uL (0.8-4.8) 11/30/24 17:18 [place] # (Auto) 0.6 10^3/uL (0.2-0.9) 11/30/24 17:18 Eos # (Auto) 0.1 10^3/uL (0.0-0.8) 11/30/24 17:18 Baso # (Auto) 0.0 10^3/uL (0.0-0.1) 11/30/24 17:18 Nucleated RBC % (auto) 0 % 11/30/24 17:18 Nucleated RBCs # 0.0 /100WBC 11/30/24 17:18 PT 15.30 SECONDS (12.1-14.9) H 11/30/24 17:18 INR 1.13 (0.8-1.2) 11/30/24 17:18 Sodium 139 mmol/L (136-145) 11/30/24 17:18 Potassium 4.0 mmol/L (3.5-5.1) 11/30/24 17:18 Chloride 99 mmol/L (98-107) 11/30/24 17:18 Carbon Dioxide 26 mmol/L (22-29) 11/30/24 17:18 Anion Gap 18.0 (5-19) 11/30/24 17:18 BUN 19 mg/dL (8-23) 11/30/24 17:18 Creatinine 1.4 mg/dL (0.5-0.9) H 11/30/24 17:18 GFR Calculation Not Reportable 11/30/24 17:18 Glucose 118 mg/dL (65-115) H 11/30/24 17:18 Calculated Osmolality 291 mOsm/kg (285-295) 11/30/24 17:18 Calcium 9.1 mg/dL (8.5-10.5) 11/30/24 17:18 Total Bilirubin 0.5 mg/dL (0.15-1.2) 11/30/24 17:18 AST 33 U/L (0-32) H 11/30/24 17:18 ALT 33 U/L (0-33) 11/30/24 17:18 Alkaline Phosphatase 164 U/L (35-105) H 11/30/24 17:18 Troponin T Baseline 15 ng/L (0-10) H 11/30/24 17:18 Troponin T 120 Minute 14.46 ng/L (0-10) H 11/30/24 19:22 Delta Troponin T -0.54 ABS# (0-10) L 11/30/24 19:22 Total Protein 7.9 g/dL (6.6-8.7) 11/30/24 17:18 Albumin 4.5 g/dL (3.5-5.2) 11/30/24 17:18 Globulin 3.4 g/dL (1.3-4.6) 11/30/24 17:18 Lipase 27 U/L (13-60) 11/30/24 17:18 All radiology interpretation(s) finalized by discharge Discharge Plan Discharge Patient Disposition: Home Clinical Impression: Musculoskeletal chest pain Condition: Stable Prescriptions: No Action calcium carbonate [Tums] 200 mg calcium (500 mg) tablet,chewable 200 mg PO BID PRN (Reason: Heartburn) atorvastatin 80 mg tablet See Rx Instructions .ROUTE .COMPLEX Qty: 90 1RF Dose Instruction: TAKE ONE TABLET BY MOUTH At Bedtime AT 9pm Rx Instructions: TAKE ONE TABLET BY MOUTH At Bedtime AT 9pm albuterol sulfate 90 mcg/actuation HFA aerosol inhaler 2 inh inhalation Q8H PRN (Reason: shortness of breath or wheezing) Qty: 8.5 1RF famotidine 10 mg tablet 10 - 20 mg PO BID Qty: 60 3RF amiodarone 200 mg tablet See Rx Instructions .ROUTE .COMPLEX Qty: 30 4RF Dose Instruction: TAKE ONE TABLET BY MOUTH EVERY DAY Rx Instructions: TAKE ONE TABLET BY MOUTH EVERY DAY amlodipine 5 mg tablet See Rx Instructions .ROUTE .COMPLEX Qty: 30 4RF Dose Instruction: TAKE ONE TABLET BY MOUTH DAILY Rx Instructions: TAKE ONE TABLET BY MOUTH DAILY furosemide 40 mg tablet 40 mg .ROUTE .COMPLEX Qty: 45 2RF Rx Instructions: take one and 1/2 tab daily Xarelto 20 mg tablet See Rx Instructions .ROUTE .COMPLEX Qty: 30 4RF Dose Instruction: TAKE ONE TABLET BY MOUTH At Bedtime Rx Instructions: TAKE ONE TABLET BY MOUTH At Bedtime potassium chloride 20 mEq tablet extended release See Rx Instructions .ROUTE .COMPLEX Qty: 270 1RF Dose Instruction: TAKE 1 AND 1/2 TABLETS BY MOUTH TWICE DAILY Rx Instructions: TAKE 1 AND 1/2 TABLETS BY MOUTH TWICE DAILY Discharge Orders: Discharge ED (Routine); Ordered 11/30/24 Ordered By: De Roman Referrals: Yue Thompson MD [Primary Care Provider] - Patient Instructions: Chest Wall Pain (ED), Opioid Safety, Pain Management Activity Restrictions/Additional Instructions: 4% topical lidocaine with menthol cream or gel use as directed on package as needed for pain in your chest wall. Warm moist heat for 10 to 15 minutes at a time 3-4 times daily. Tylenol every 6-8 hours as needed. Follow-up with your primary care provider symptoms not improving over the next 3 to 4 days. Coding Level of Care Code ED Assistant Professor Of Nursing for Jolene Bingham
[2024-11-30 17:53] LABS: Basophils % 0.4 %; Eosinophils # 0.1 10^3/uL (0.0-0.8); Eosinophils % 1.6 %; Hematocrit 46.3 % (36-47); Lymphocytes # 1.4 10^3/uL (0.8-4.8); Lymphocytes % 19.3 %; Mean Corpuscular HGB Conc 31.5 g/dL (30-55); Mean Corpuscular Hemoglobin 30.3 pg (27-33); Mean Corpuscular Volume 96.1 fl (85-98); Mean Platelet Volume 12.4 fL (7.4-10.4); Monocytes # 0.6 10^3/uL (0.2-0.9); Monocytes % 8.3 %; Neutrophils # 5.17 10^3/uL (1.8-7.7); Neutrophils % 70.1 %; Nucleated Red Blood Cells % 0 %; Platelet Count 168 10^3/cmm (157-399); Red Blood Count 4.82 10^6/uL (3.85-5.65); Red Cell Distribution Width 14.3 % (12.1-15.1); White Blood Count 7.37 10^3/uL (3.29-11.43)
[2024-11-30 18:06] LABS: INR 1.13 (0.8-1.2)
[2024-11-30 18:10] LABS: Alanine Aminotransferase 33 U/L (0-33); Albumin Level 4.5 g/dL (3.5-5.2); Alkaline Phosphatase 164 U/L (35-105); Blood Urea Nitrogen 19 mg/dL (8-23); Calcium 9.1 mg/dL (8.5-10.5); Carbon Dioxide 26 mmol/L (22-29); Chloride 99 mmol/L (98-107); Creatinine Clr Calc Pharmacy 34.6367; Globulin 3.4 g/dL (1.3-4.6); Glucose 118 mg/dL (65-115); Lipase 27 U/L (13-60); Osmolality Calculated 291 mOsm/kg (285-295); Sodium 139 mmol/L (136-145); Total Bilirubin 0.5 mg/dL (0.15-1.2); Total Protein 7.9 g/dL (6.6-8.7)
[2024-11-30 18:16] LABS: Aspartate Amino Transferase 33 U/L (0-32); Troponin(5th) Baseline 15 ng/L (0-10)
[2024-11-30 18:31] VITALS: BP 164/82; PULSE 69; O2SAT 97
--- NOTE | 2024-11-30 18:53 | PC.NURSE ---
Assumed care from Angle BENITEZ at this time.
--- NOTE | 2024-11-30 18:54 | ECG_ITS ---
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 Measurements Intervals [place] Rate: 64 P: 73 TN: 194 QRS: -4 QRSD: 114 T: 107 QT: 448 QTc: 465 Interpretive Statements SINUS RHYTHM LEFT VENTRICULAR HYPERTROPHY AND ST-T CHANGE [VOLTAGE CRITERIA PLUS ST/T ABNORMALITY] Compared to ECG 11/30/2024 16:56:10 Myocardial infarct finding no longer present ST (T wave) deviation still present Electronically Signed On 12-01-2024 18:24:42 DRAINLAYER by Hawk Villagomez M.D. [email or web address]
[2024-11-30 19:47] LABS: Troponin 5 2HR 14.46 ng/L (0-10)
[2024-11-30 19:50] LABS: Troponin 5 2HR Delta -0.54 ABS# (0-10)
[2024-11-30 20:06] VITALS: BP 172/85; PULSE 66; O2SAT 93
[2024-11-30 20:09] VITALS: BP 172/85; PULSE 66; O2SAT 93
== END 2024-11-30 20:01 | disposition home or self-care (01) ==
PROVIDERS: Emergency Medicine; Emergency Provider Student in an Organized Health Care Education/Training Program; PCP Family Medicine
DX: R07.9 Chest pain, unspecified (principal); Z86.73 Personal history of transient ischemic attack (TIA), and cerebral infarction without residual deficits; Z85.3 Personal history of malignant neoplasm of breast; I13.0 Hypertensive heart and chronic kidney disease with heart failure and stage 1 through stage 4 chronic kidney disease, or unspecified chronic kidney disease; N18.9 Chronic kidney disease, unspecified; I50.9 Heart failure, unspecified; E78.5 Hyperlipidemia, unspecified
CPT/HCPCS: 36415; 71045; 80053; 83690; 84484; 85025; 85610; 93005; 99285

== ENCOUNTER → 2024-12-22 09:43 | Outpatient (BNVA) | payer MEDICARE, SELFPAY | PROVIDERS: PCP Family Medicine; Visit Provider Nurse Practitioner Family | DX: I10 Essential (primary) hypertension (principal); E78.5 Hyperlipidemia, unspecified; I48.91 Unspecified atrial fibrillation; Z51.81 Encounter for therapeutic drug level monitoring; Z79.899 Other long term (current) drug therapy; Z79.01 Long term (current) use of anticoagulants | CPT/HCPCS: 99213 ==

== ENCOUNTER → 2025-01-27 12:59 | Outpatient (BNVA) | payer MEDICARE, SELFPAY | PROVIDERS: Visit Provider Nurse Practitioner Family | DX: I10 Essential (primary) hypertension (principal); Z79.899 Other long term (current) drug therapy; R73.9 Hyperglycemia, unspecified | CPT/HCPCS: 80053; 80061; 82306; 82607; 83036; 83735; 84443; 85025 ==

== ENCOUNTER 2025-03-21 10:56 | Emergency (ER) | payer MEDICARE, SELFPAY ==
[2025-03-21] VITALS (10 sets, daily range): BP systolic 140–181; BP diastolic 59–88; PULSE 65–79; RESP 16–20; TEMP 36.9; O2SAT 90–99; BMI 28.1
--- NOTE | 2025-03-21 11:05 | ECG_ITS ---
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
--- NOTE | 2025-03-21 11:09 | XRR_ITS ---
PROCEDURE INFORMATION: Exam: XR Chest Exam date and time: 03/21/2025 11:11 AM Age: 79 years old Clinical indication: Shortness of breath TECHNIQUE: Imaging protocol: Radiologic exam of the chest. Views: 1 view. COMPARISON: CR XR chest 1V portable [id number] 11/30/2024 5:26 PM FINDINGS: Tubes, catheters and devices: Surgical clips project over the left axillary region. Lungs: Similar linear densities projecting over the right lung apex. No focal airspace consolidation. Pleural spaces: Unremarkable. No pleural effusion. No pneumothorax. Heart/Mediastinum: Unremarkable. No cardiomegaly. Bones/joints: Unremarkable. XR/XR chest 1V portable [id number] IMPRESSION: No acute findings.
[2025-03-21 11:36] LABS: Basophils % 0.4 %; Eosinophils # 0.1 10^3/uL (0.0-0.8); Eosinophils % 0.7 %; Hematocrit 44.8 % (36-47); Lymphocytes # 1.1 10^3/uL (0.8-4.8); Lymphocytes % 15.1 %; Mean Corpuscular HGB Conc 31.5 g/dL (30-55); Mean Corpuscular Hemoglobin 28.6 pg (27-33); Mean Corpuscular Volume 90.9 fl (85-98); Mean Platelet Volume 11.8 fL (7.4-10.4); Monocytes # 0.7 10^3/uL (0.2-0.9); Monocytes % 10.1 %; Neutrophils # 5.09 10^3/uL (1.8-7.7); Neutrophils % 73.4 %; Nucleated Red Blood Cells % 0 %; Platelet Count 186 10^3/cmm (157-399); Red Blood Count 4.93 10^6/uL (3.85-5.65); Red Cell Distribution Width 14.6 % (12.1-15.1); White Blood Count 6.94 10^3/uL (3.29-11.43)
[2025-03-21] MEDS: methylPREDNISolone sod succ 125 mg/2 mL INJ 80 MG IV (11:39)
[2025-03-21] MEDS: ipratropium-albuterol 3 mL Neb INHALATION (11:46)
--- NOTE | 2025-03-21 11:48 | W.ED.SOB ---
HPI - SOB/Dyspnea General: Chief Complaint: Shortness of Breath/Dyspnea Stated Complaint: low O2, SOB Time Seen by Provider: 03/21/25 11:09 History of Present Illness: HPI Narrative: 79-year-old female with a history of A-fib, chronic anticoagulation on Xarelto, chronic kidney disease, congestive heart failure, coronary artery disease, stroke, hyperlipidemia, hypertension (she denies COPD but she does take an inhaler at home) who presents to the emergency room with worsening shortness of breath. She says she has had increasing cough and congestion. She saw her PCP who placed her on antibiotic. She took it once and then had nausea and vomiting so she quit taking it today. No fevers. She has had some cough. No increased lower extremity swelling. No altered mental status. No known fevers. No chest pain. No abdominal pain. Related Data Home Medications ?Medication ?Instructions ?Recorded ?Confirmed calcium carbonate (Tums) 200 mg PO BID PRN Heartburn 11/06/22 03/21/25 amiodarone 200 mg tablet 200 mg PO DAILY 03/21/25 03/21/25 amlodipine 5 mg tablet 5 mg PO DAILY 03/21/25 03/21/25 atorvastatin 80 mg tablet 80 mg PO BEDTIME 03/21/25 03/21/25 cholecalciferol (vitamin D3) 10 10 mcg PO DAILY 03/21/25 03/21/25 mcg (400 unit) chewable tablet (Vitamin D3) famotidine 10 mg tablet 10 - 20 mg PO BID PRN Acid Reflux 03/21/25 03/21/25 furosemide 40 mg tablet 60 mg PO DAILY 03/21/25 03/21/25 potassium chloride 20 mEq 20 meq PO BID 03/21/25 03/21/25 tablet,extended release rivaroxaban 20 mg tablet (Xarelto) 20 mg PO BEDTIME 03/21/25 03/21/25 Previous Rx's ?Medication ?Instructions ?Recorded albuterol sulfate 90 mcg/actuation 2 inh inhalation Q8H PRN shortness 08/10/24 aerosol inhaler of breath or wheezing #8.5 grams cholecalciferol (vitamin D3) 1,250 50,000 unit PO .once weekly #12 01/31/25 mcg (50,000 unit) capsule caps doxycycline hyclate 100 mg capsule 100 mg PO BID 7 days #14 caps 03/15/25 albuterol sulfate 90 mcg/actuation 2 inh inhalation Q4H PRN shortness 03/21/25 aerosol inhaler of breath or wheezing #6.7 grams amoxicillin 875 mg-potassium 1 tab PO BID 10 days #20 tabs 03/21/25 clavulanate 125 mg tablet dexamethasone 6 mg tablet 6 mg PO DAILY 5 days #5 tabs 03/21/25 ondansetron 4 mg disintegrating 4 mg PO Q8H PRN nausea and 03/21/25 tablet vomiting #10 tabs Allergies Allergy/AdvReac Type Severity Reaction Status Date / Time Iodinated Contrast Media Allergy ALGY-Rash Verified 03/15/25 11:51 azithromycin AdvReac Unknown Verified 03/15/25 11:51 naproxen AdvReac Unknown Verified 03/15/25 11:51 Review of Systems Narrative: Constitutional symptoms: Negative except as documented in HPI. Skin symptoms: Negative except as documented in HPI. Eye symptoms: Negative except as documented in HPI. ENMT symptoms: Negative except as documented in HPI. Respiratory symptoms: Negative except as documented in HPI. Cardiovascular symptoms: Negative except as documented in HPI. Gastrointestinal symptoms: Negative except as documented in HPI. Genitourinary symptoms: Negative except as documented in HPI. Musculoskeletal symptoms: Negative except as documented in HPI. Neurologic symptoms: Negative except as documented in HPI. Psychiatric symptoms: Negative except as documented in HPI. Endocrine symptoms: Negative except as documented in HPI. PFS ED PFSH: Medical History Anticoagulation adequate with anticoagulant therapy Chronic kidney disease Acute exacerbation of CHF (congestive heart failure) Hypoxemia Acute non-ST elevation myocardial infarction (NSTEMI) Hypokalemia Atrial fibrillation with RVR CHF (congestive heart failure), NYHA class III CVA (cerebral vascular accident) Atrial fibrillation Hyperlipidemia SS-A antibody positive Elevated serum creatinine Elevated serum creatinine Acid reflux Breast cancer Subacute cutaneous lupus erythematosus High risk medication use Other prison (current) drug therapy Hypertension Surgical History History of left mastectomy H/O: hysterectomy History of inguinal hernia repair Family History Other Hyperlipidemia Psychiatric illness Denies family history of Rheumatoid arthritis Lupus Social History Smoking and tobacco/nicotine status: never used tobacco/nicotine Second hand smoke exposure: No Alcohol intake: never Lives independently: Yes Household members: none Current occupational status: employed Current occupation: [employer] Current gender identity: Female Physical Exam Narrative: EXAM NARRATIVE: General: Alert, no acute distress. Skin: Warm, dry. Head: Normocephalic, atraumatic. Neck: Supple, trachea midline. Eye: Extraocular movements are intact. Ears, nose, mouth and throat: mucosa moist. Cardiovascular: Regular, Normal peripheral perfusion. Respiratory: Lungs are clear to auscultation, respirations are non-labored, breath sounds are equal, Symmetrical chest wall expansion. Gastrointestinal: Soft, Nontender, Non distended Musculoskeletal: Normal ROM, no deformity. Neurological: Alert and oriented, No focal neurological deficit observed. Psychiatric: Cooperative, appropriate mood & affect. Course Vital Signs: Vital signs: Vital Signs Temperature 98.4 F 03/21/25 11:02 Pulse Rate 67 03/21/25 13:50 Respiratory Rate 16 03/21/25 11:44 Blood Pressure 169/70 03/21/25 13:50 Pulse Oximetry 94 03/21/25 13:50 Oxygen Delivery Me thod Room Air 03/21/25 13:30 MDM - SOB/Dyspnea Medical Decision Making Differential diagnosis for patient with shortness of breath includes but is not limited to and based on the above HPI, review of systems and physical exam: Pneumonia. Bronchitis. Asthma or COPD with acute exacerbation. Acute coronary syndrome / OR. Pulmonary embolism. Anxiety. Congestive heart failure. Viral infections including influenza and Covid-19. Atrial fibrillation. Anxiety. Pleural effusion. Pneumothorax. Orders placed to evaluate differential diagnosis based on the above differential, HPI and physical exam EKG: Time 11:05 AM. Rate 73. Normal sinus rhythm, nonspecific ST changes, no ectopy, normal RI & QRS intervals, This was reviewed and interpreted by myself the ER physician at 11:10 AM. No significant changes from an EKG taken in November of this year. Chest x-ray: No acute process. No infiltrate. No pneumothorax. This was reviewed and interpreted by myself the emergency room physician. I also reviewed the radiology report. Lab Review: Laboratory results were reviewed and interpreted by myself the emergency room physician. No leukocytosis. No anemia. Renal function slightly above her baseline at 21 and 1.7 but she normally runs 1.3-1.6. proBNP is not elevated over her baseline. She is flu COVID and RSV negative. I reviewed the patient's medical record. history of A-fib, chronic anticoagulation on Xarelto, chronic kidney disease, congestive heart failure, coronary artery disease, stroke, hyperlipidemia, hypertension (she denies COPD but she does take an inhaler at home) Reexamination: Patient remained stable. No increased work of breathing. No altered mental status. No focal motor deficits. Assessment and plan: Bronchitis Medication reaction ? Solu-Medrol and breathing treatment in the emergency room. - Discharged home - Discussed plan with patient. Answered any questions. - Evaluation and treatment of this problem were appropriate in the emergency setting. Lab Data 03/21/25 11:18 03/21/25 11:18 Labs/Radiology: Radiology Impressions Chest X-Ray 03/21/25 11:09 IMPRESSION: No acute findings. Laboratory Results WBC 6.94 10^3/uL (3.29-11.43) 03/21/25 11:18 RBC 4.93 10^6/uL (3.85-5.65) 03/21/25 11:18 Hgb 14.10 g/dL (11.27-16.99) 03/21/25 11:18 Hct 44.8 % (36-47) 03/21/25 11:18 MCV 90.9 fl (85-98) 03/21/25 11:18 MCH 28.6 pg (27-33) 03/21/25 11:18 MCHC 31.5 g/dL (30-55) 03/21/25 11:18 RDW 14.6 % (12.1-15.1) 03/21/25 11:18 Plt Count 186 10^3/cmm (157-399) 03/21/25 11:18 MPV 11.8 fL (7.4-10.4) H 03/21/25 11:18 Neut % (Auto) 73.4 % 03/21/25 11:18 Lymph % (Auto) 15.1 % 03/21/25 11:18 Stewart % (Auto) 10.1 % 03/21/25 11:18 Eos % (Auto) 0.7 % 03/21/25 11:18 Baso % (Auto) 0.4 % 03/21/25 11:18 Neut # (Auto) 5.09 10^3/uL (1.8-7.7) 03/21/25 11:18 Lymph # (Auto) 1.1 10^3/uL (0.8-4.8) 03/21/25 11:18 Stewart # (Auto) 0.7 10^3/uL (0.2-0.9) 03/21/25 11:18 Eos # (Auto) 0.1 10^3/uL (0.0-0.8) 03/21/25 11:18 Baso # (Auto) 0.0 10^3/uL (0.0-0.1) 03/21/25 11:18 Nucleated RBC % (auto) 0 % 03/21/25 11:18 Nucleated RBCs # 0.0 /100WBC 03/21/25 11:18 Sodium 138 mmol/L (136-145) 03/21/25 11:18 Potassium 4.0 mmol/L (3.5-5.1) 03/21/25 11:18 Chloride 98 mmol/L (98-107) 03/21/25 11:18 Carbon Dioxide 26 mmol/L (22-29) 03/21/25 11:18 Anion Gap 18.0 (5-19) 03/21/25 11:18 BUN 21 mg/dL (8-23) 03/21/25 11:18 Creatinine 1.7 mg/dL (0.5-0.9) H 03/21/25 11:18 GFR Calculation Not Reportable 03/21/25 11:18 Glucose 125 mg/dL (65-115) H 03/21/25 11:18 Calculated Osmolality 290 mOsm/kg (285-295) 03/21/25 11:18 Lactic Acid 1.7 mmol/L (0.5-2.2) 03/21/25 11:18 Calcium 9.5 mg/dL (8.5-10.5) 03/21/25 11:18 Total Bilirubin 0.8 mg/dL (0.15-1.2) 03/21/25 11:18 AST 26 U/L (0-32) 03/21/25 11:18 ALT 24 U/L (0-33) 03/21/25 11:18 Alkaline Phosphatase 144 U/L (35-105) H 03/21/25 11:18 Troponin T Baseline 21 ng/L (0-10) H 03/21/25 11:18 Troponin T 120 Minute 17.34 ng/L (0-10) H 03/21/25 12:57 Delta Troponin T -3.66 ABS# (0-10) L 03/21/25 12:57 NT-Pro-B Natriuret Pep 663 pg/mL (0-450) H 03/21/25 11:18 Total Protein 7.5 g/dL (6.6-8.7) 03/21/25 11:18 Albumin 4.2 g/dL (3.5-5.2) 03/21/25 11:18 Globulin 3.3 g/dL (1.3-4.6) 03/21/25 11:18 Adenovirus (PCR) Cancelled 03/21/25 11:27 C. pneumoniae DNA (PCR) Cancelled 03/21/25 11:27 Coronavirus 229E (PCR) Cancelled 03/21/25 11:27 Human Metapneumovir PCR Cancelled 03/21/25 11:27 Influenza A (H1) PCR Cancelled 03/21/25 11:27 Influenza A (PCR) Negative (Negative) 03/21/25 11:27 Influ A (H1/09) PCR Cancelled 03/21/25 11:27 Influenza A (H3) PCR Cancelled 03/21/25 11:27 Influenza Type A (PCR) Cancelled 03/21/25 11:27 Influenza Type B (PCR) Cancelled 03/21/25 11:27 Influenza Type B (PCR) Negative (Negative) 03/21/25 11:27 M. pneumoniae (PCR) Cancelled 03/21/25 11:27 Parainfluenza 1 (PCR) Cancelled 03/21/25 11:27 Parainfluenza 2 (PCR) Cancelled 03/21/25 11:27 Parainfluenza 3 (PCR) Cancelled 03/21/25 11:27 Parainfluenza 4 (PCR) Cancelled 03/21/25 11:27 RSV (PCR) Negative (Negative) 03/21/25 11:27 RSV Type A (PCR) Cancelled 03/21/25 11:27 RSV Type B (PCR) Cancelled 03/21/25 11:27 Entero/Rhino (PCR) Cancelled 03/21/25 11:27 SARS-CoV-2 (PCR) Cancelled 03/21/25 11:27 SARS-CoV-2 (PCR) Negative (Negative) 03/21/25 11:27 All radiology interpretation(s) finalized by discharge Discharge Plan Discharge Patient Disposition: Home Clinical Impression: Bronchitis Condition: Stable Prescriptions: New dexamethasone 6 mg tablet 6 mg PO DAILY 5 Days Qty: 5 0RF albuterol sulfate 90 mcg/actuation HFA aerosol inhaler 2 inh inhalation Q4H PRN (Reason: shortness of breath or wheezing) Qty: 6.7 0RF Rx Instructions: Please provide patient with a spacer ondansetron 4 mg tablet,disintegrating 4 mg PO Q8H PRN (Reason: nausea and vomiting) Qty: 10 0RF amoxicillin-pot clavulanate 875-125 mg tablet 1 tab PO BID 10 Days Qty: 20 0RF No Action calcium carbonate [Tums] 200 mg calcium (500 mg) tablet,chewable 200 mg PO BID PRN (Reason: Heartburn) albuterol sulfate 90 mcg/actuation HFA aerosol inhaler 2 inh inhalation Q8H PRN (Reason: shortness of breath or wheezing) Qty: 8.5 1RF doxycycline hyclate 100 mg capsule 100 mg PO BID 7 Days Qty: 14 0RF cholecalciferol (vitamin D3) 1,250 mcg (50,000 unit) capsule 50,000 unit PO .once weekly Qty: 12 0RF cholecalciferol (vitamin D3) [Vitamin D3] 10 mcg (400 unit) Tablet,Chewable 10 mcg PO DAILY furosemide 40 mg tablet 60 mg PO DAILY atorvastatin 80 mg tablet 80 mg PO BEDTIME famotidine 10 mg tablet 10 - 20 mg PO BID PRN (Reason: Acid Reflux) amiodarone 200 mg tablet 200 mg PO DAILY amlodipine 5 mg tablet 5 mg PO DAILY Xarelto 20 mg tablet 20 mg PO BEDTIME potassium chloride 20 mEq tablet extended release 20 meq PO BID Rx Instructions: TAKE 1 AND 1/2 TABLETS BY MOUTH TWICE DAILY Discharge Orders: Discharge ED (Routine); Ordered 03/21/25 Ordered By: Allison Zarate Referrals: Patricia Silverio FNP [Primary Care Provider] - Discharge Diet: Usual diet Discharge Activity: Increase activity as tolerated Patient Instructions: Acute Bronchitis (ED), Opioid Safety, Pain Management Activity Restrictions/Additional Instructions: Please discontinue doxycycline. Take prescriptions as written. Thank you for choosing [facility] for your healthcare needs today. You have been screened and evaluated and felt safe for discharge. Health conditions do change or evolve sometimes and as such it is important that you follow up with your Primary Doctor to be re checked, 3-5 days is a general good time frame for follow up. 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
[2025-03-21 11:52] LABS: Lactic Sepsis W/Reflex 1.7 mmol/L (0.5-2.2)
[2025-03-21 11:57] LABS: Troponin(5th) Baseline 21 ng/L (0-10)
[2025-03-21 12:35] LABS: Alanine Aminotransferase 24 U/L (0-33); Albumin Level 4.2 g/dL (3.5-5.2); Alkaline Phosphatase 144 U/L (35-105); Aspartate Amino Transferase 26 U/L (0-32); Blood Urea Nitrogen 21 mg/dL (8-23); Calcium 9.5 mg/dL (8.5-10.5); Carbon Dioxide 26 mmol/L (22-29); Chloride 98 mmol/L (98-107); Creatinine Clr Calc Pharmacy 28.5244; Globulin 3.3 g/dL (1.3-4.6); Glucose 125 mg/dL (65-115); NT Pro B Type Natriuretic Pept 663 pg/mL (0-450); Osmolality Calculated 290 mOsm/kg (285-295); Sodium 138 mmol/L (136-145); Total Bilirubin 0.8 mg/dL (0.15-1.2); Total Protein 7.5 g/dL (6.6-8.7)
[2025-03-21 12:37] LABS: Influenza A NEGATIVE (Negative); Influenza B NEGATIVE (Negative); Respiratory Syncytial Virus Ce NEGATIVE (Negative); SARS-CoV-2 PCR NEGATIVE (Negative)
--- NOTE | 2025-03-21 13:00 | ECG_ITS ---
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
[2025-03-21 13:19] LABS: Troponin 5 2HR 17.34 ng/L (0-10)
[2025-03-21 13:20] LABS: Troponin 5 2HR Delta -3.66 ABS# (0-10)
== END 2025-03-21 13:51 | disposition home or self-care (01) ==
PROVIDERS: Emergency Provider Emergency Medicine; PCP Nurse Practitioner Family
DX: J40 Bronchitis, not specified as acute or chronic (principal); Z11.52 Encounter for screening for COVID-19; Z86.73 Personal history of transient ischemic attack (TIA), and cerebral infarction without residual deficits; E78.5 Hyperlipidemia, unspecified; I13.0 Hypertensive heart and chronic kidney disease with heart failure and stage 1 through stage 4 chronic kidney disease, or unspecified chronic kidney disease; N18.9 Chronic kidney disease, unspecified; I50.9 Heart failure, unspecified; I25.10 Atherosclerotic heart disease of native coronary artery without angina pectoris
CPT/HCPCS: 36415; 71045; 80053; 83605; 83880; 84484; 85025; 87040; 87637; 93005; 94640; 96374; 99285; J2919; J9999

== ENCOUNTER → 2025-03-28 13:34 | Outpatient (BNVA) | payer MEDICARE, SELFPAY | PROVIDERS: PCP Nurse Practitioner Family; Visit Provider Nurse Practitioner Family | DX: Z09 Encounter for follow-up examination after completed treatment for conditions other than malignant neoplasm (principal); J40 Bronchitis, not specified as acute or chronic | CPT/HCPCS: 80048 ==

== ENCOUNTER → 2025-06-14 14:43 | Outpatient (BNVA) | payer MEDICARE, SELFPAY | PROVIDERS: PCP Nurse Practitioner Family; Visit Provider Nurse Practitioner Family | DX: M79.605 Pain in left leg (principal); R60.0 Localized edema | CPT/HCPCS: 73610 ==

== ENCOUNTER → 2025-07-18 12:08 | Outpatient (BNVA) | payer MEDICARE, SELFPAY | PROVIDERS: PCP Nurse Practitioner Family; Visit Provider Internal Medicine Cardiovascular Disease | DX: I48.91 Unspecified atrial fibrillation (principal); I87.2 Venous insufficiency (chronic) (peripheral); I13.0 Hypertensive heart and chronic kidney disease with heart failure and stage 1 through stage 4 chronic kidney disease, or unspecified chronic kidney disease; I50.9 Heart failure, unspecified; N18.9 Chronic kidney disease, unspecified; I25.2 Old myocardial infarction; Z79.01 Long term (current) use of anticoagulants | CPT/HCPCS: 99214 ==

== ENCOUNTER → 2025-08-18 10:39 | Outpatient (BNVA) | payer MEDICARE, SELFPAY | PROVIDERS: PCP Nurse Practitioner Family; Visit Provider Nurse Practitioner Family | DX: Z79.899 Other long term (current) drug therapy (principal); I10 Essential (primary) hypertension; R79.89 Other specified abnormal findings of blood chemistry | CPT/HCPCS: 80053; 80061; 82306; 83036; 84443; 85025 ==